=== PATIENT | female | born 1945 | race Caucasian/White ===

== ENCOUNTER 2022-12-19 23:52 | Emergency (ER) | payer MEDICARE, BC, SELFPAY ==
[2022-12-20] VITALS (14 sets, daily range): BP systolic 66–110; BP diastolic 38–75; PULSE 64–74; RESP 16–18; TEMP 36.6; O2SAT 94–98; BMI 23.0
[2022-12-20] MEDS: 0.9 % SODIUM CHLORIDE 1000 ml 1,000 ML IV ×2 (00:20→01:17)
--- NOTE | 2022-12-20 00:57 | ED.GENADULT ---
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 Other COVID case. Tested positive yesterday. Increasingly weak. Describing orthostatic lightheadedness. Got up went to the kitchen at which point was feeling more lightheaded reached for a chair which slipped out from under her and she fell lacerating her left thumb. I note rather low blood pressure on arrival here. She does acknowledge is usually in the 120s. She does apparently take few antihypertensives as well. During this fall there was no loss of consciousness and no other injuries were sustained apparently. She denies heart failure. Related Data Home Medications Medication Instructions Recorded Confirmed amlodipine 5 mg tablet 5 mg PO DAILY 12/20/22 12/20/22 atenolol 25 mg tablet 25 mg PO DAILY 12/20/22 12/20/22 atorvastatin 20 mg tablet 20 mg PO HS 12/20/22 12/20/22 cholecalciferol (vitamin D3) 25 25 mcg PO DAILY 12/20/22 12/20/22 mcg (1,000 unit) capsule duloxetine 20 mg capsule,delayed 20 mg PO BID 12/20/22 12/20/22 release esomeprazole magnesium 40 mg 40 mg PO DAILY 12/20/22 12/20/22 capsule,delayed release famotidine 20 mg tablet 20 mg PO HS 12/20/22 12/20/22 ferrous gluconate 324 mg (38 mg 324 mg PO DAILY 12/20/22 12/20/22 iron) tablet gabapentin 300 mg capsule 300 mg PO HS 12/20/22 12/20/22 mirabegron 50 mg tablet,extended 50 mg PO DAILY 12/20/22 12/20/22 release 24 hr (Myrbetriq) nortriptyline 10 mg capsule 10 mg PO HS 12/20/22 12/20/22 oxycodone-acetaminophen 5 mg-325 1 tab PO TID PRN 12/20/22 12/20/22 mg tablet sumatriptan succinate 50 mg tablet 50 mg PO DIRECTED 12/20/22 12/20/22 vitamin E 268 mg (400 unit) capsule 536 mg PO DAILY 12/20/22 12/20/22 Allergies Allergy/AdvReac Type Severity Reaction Status Date / Time vancomycin Allergy Severe Angioedema Verified 12/20/22 00:13 amoxicillin [From Augmentin] Allergy Mild Rash Verified 12/20/22 00:13 clavulanic acid Allergy Mild Rash Verified 12/20/22 00:13 [From Augmentin] Review of Systems Status of ROS: Reports: 10 or more systems reviewed and unremarkable except as noted in History and below [facility] Medical History Adjustment disorder Dermatochalasia Dry mouth FH: total knee replacement Hip osteoarthritis HTN (hypertension) Hyperlipidemia, unspecified Injury of long thoracic nerve Lumbar facet arthropathy Migraines Neck pain Pain medication agreement Peripheral motor neuropathy Pterygium eye Sensorineural hearing loss Spinal stenosis, lumbar region without neurogenic claudication Urge incontinence Surgical History Cataract extraction status H/O blepharoplasty History of carpal tunnel release Hx of tonsillectomy S/P YAG capsulotomy Social History Smoking Status: Unknown if ever smoked Do you use any of these nicotine containing products: None How often do you have a drink containing alcohol: never AUDIT-C Alcohol total score: 0 Non-prescribed substance use: denies use Exam Narrative: Exam Narrative: Pleasant. NAD. Skin is warm and dry. There is a 1-1/4 inch gapping mid pad laceration of the left thumb. Full dermal with fatty pad expressed. She appears of good energy. Head is atraumatic. Oropharynx is sticky. Cranial nerves 2-12 are intact. There is no nystagmus. She does not demonstrates subjective dizziness to head movement. Does feel lightheaded when goes to sitting. Lungs are clear. Heart with regular rate and rhythm no murmur rub or gallop identified. Abdomen is flat soft nontender. Moving all extremities without difficulty. Well perfused. No peripheral/lower extremity edema. Const: Vital Signs, click to edit/add: Vital Signs - 24 hr 12/20/22 00:08 12/20/22 00:17 12/20/22 00:32 Temperature 97.8 F Pulse Rate 65 66 Pulse Rate [Right Pulse Oximeter] 70 Pulse Rate [orthos tatic lying Pulse Oximeter] Pulse Rate [orthos tatic sitting Left ] Pulse Rate [orthos tatic standing Lef t] Respiratory Rate 18 Blood Pressure 83/50 L 87/47 L Blood Pressure [Le ft Upper Arm] 89/50 L Blood Pressure [or thostatic lying Le ft Arm] Blood Pressure [or thostatic sitting Left Arm] Blood Pressure [or thostatic standing Left Arm] Pulse Oximetry 98 94 96 Oxygen Delivery Me thod Room Air 12/20/22 00:47 12/20/22 00:47 12/20/22 01:07 Temperature Pulse Rate 66 Pulse Rate [Right Pulse Oximeter] Pulse Rate [orthos tatic lying Pulse Oximeter] 65 Pulse Rate [orthos tatic sitting Left ] 66 Pulse Rate [orthos tatic standing Lef t] 74 Respiratory Rate Blood Pressure 93/55 L Blood Pressure [Le ft Upper Arm] Blood Pressure [or thostatic lying Le ft Arm] 94/45 L Blood Pressure [or thostatic sitting Left Arm] 88/54 L Blood Pressure [or thostatic standing Left Arm] 66/46 L Pulse Oximetry 97 97 Oxygen Delivery Me thod 12/20/22 01:17 12/20/22 01:32 12/20/22 01:47 Temperature Pulse Rate 68 66 64 Pulse Rate [Right Pulse Oximeter] Pulse Rate [orthos tatic lying Pulse Oximeter] Pulse Rate [orthos tatic sitting Left ] Pulse Rate [orthos tatic standing Lef t] Respiratory Rate Blood Pressure 96/38 L 99/51 L 96/55 L Blood Pressure [Le ft Upper Arm] Blood Pressure [or thostatic lying Le ft Arm] Blood Pressure [or thostatic sitting Left Arm] Blood Pressure [or thostatic standing Left Arm] Pulse Oximetry 95 96 94 Oxygen Delivery Me thod 12/20/22 02:02 12/20/22 02:17 12/20/22 02:27 Temperature Pulse Rate 64 64 68 Pulse Rate [Right Pulse Oximeter] Pulse Rate [orthos tatic lying Pulse Oximeter] Pulse Rate [orthos tatic sitting Left ] Pulse Rate [orthos tatic standing Lef t] Respiratory Rate 16 16 16 Blood Pressure 93/75 97/55 L 104/39 L Blood Pressure [Le ft Upper Arm] Blood Pressure [or thostatic lying Le ft Arm] Blood Pressure [or thostatic sitting Left Arm] Blood Pressure [or thostatic standing Left Arm] Pulse Oximetry 94 94 Oxygen Delivery Me thod 12/20/22 02:32 12/20/22 02:47 12/20/22 03:11 Temperature 97.8 F Pulse Rate Pulse Rate [Right Pulse Oximeter] 64 Pulse Rate [orthos tatic lying Pulse Oximeter] Pulse Rate [orthos tatic sitting Left ] Pulse Rate [orthos tatic standing Lef t] Respiratory Rate 16 Blood Pressure 110/63 106/61 Blood Pressure [Le ft Upper Arm] 108/64 Blood Pressure [or thostatic lying Le ft Arm] Blood Pressure [or thostatic sitting Left Arm] Blood Pressure [or thostatic standing Left Arm] Pulse Oximetry Oxygen Delivery Me thod Course Vital Signs Vital signs: Initial Vital Signs Temperature 97.8 F 12/20/22 00:08 Temperature Source Temporal Artery Scan 12/20/22 00:08 Pulse Rate 70 12/20/22 00:08 Respiratory Rate 18 12/20/22 00:08 Blood Pressure 89/50 L 12/20/22 00:08 Blood Pressure Mean 63 12/20/22 00:08 Blood Pressure Position Sitting 12/20/22 00:08 Pulse Oximetry 98 12/20/22 00:08 Oxygen Delivery Method 12/20/22 00:08 Vital Signs Temperature 97.8 F 12/20/22 00:08 Pulse Rate 70 12/20/22 00:08 Respiratory Rate 18 12/20/22 00:08 Blood Pressure 89/50 L 12/20/22 00:08 Pulse Oximetry 98 12/20/22 00:08 Oxygen Delivery Method 12/20/22 00:08 Temperature 97.8 F 12/20/22 03:11 Pulse Rate 64 12/20/22 03:11 Respiratory Rate 16 12/20/22 03:11 Blood Pressure 108/64 12/20/22 03:11 Pulse Oximetry 94 12/20/22 02:17 Oxygen Delivery Method 12/20/22 00:08 Medical Decision Making MDM Narrative Medical decision making narrative: Evaluate for further cardiovascular cause of near syncope. Rather low blood pressures are apparently atypical. Does not seem septic but would look further in this regard. Will initiate IV fluids. I suspect is rather dehydrated. Orthostatics are indeed positive. Be presumably pulse can not compensate due to beta blockade. She does report feeling increasingly lightheaded during this testing. I did return to anesthetize left thumb with a digital block. Cleansed with Shur-Clens. She had already scrubbed with soap and water. Sutured with 9-10 interrupted 6-0 Ethilon sutures. Excellent wound approximation was achieved. Still ultimately was oozing just a little bit of blood. Antibiotic ointment Band-Aid and light pressure dressing was placed. Markedly improved over time in the emergency department. Received 2 L of normal saline. Is ambulating with much less symptoms. Unfortunately GFR would preclude Paxlovid treatment. Did otherwise evaluate medication list anticipating potential treatment. With orthostatics symptoms I would hold atenolol at this point. Does not have a history of arrhythmia/dysrhythmia per her report. Medical Records Medical records reviewed: Yes I reviewed the patient's medical records Lab Data Lab results reviewed: Yes I reviewed the patient's lab results Labs: Lab Results 12/20/22 12/20/22 12/20/22 Range/Units 00:05 00:05 00:05 WBC 8.95 (4.50-11.00) K/uL RBC 4.44 (4.00-5.20) m/uL Hgb 13.3 (12.0-16.0) gm/dL Hct 40.9 (33.0-51.0) % MCV 92 (80-100) fL MCH 30 (26-34) pg MCHC 33 (32-36) gm/dL RDW Coeff of [place] 13.1 (11.5-15.5) % Plt Count 285 (140-440) K/uL Neut % (Auto) 83.8 H (42.0-72.0) % Lymph % (Auto) 5.3 L (20-44) % [place] % (Auto) 9.8 (0.0-11.0) % Eos % (Auto) 0.1 (0.0-7.0) % Baso % (Auto) 0.8 (0.0-3.0) % Neut # (Auto) 7.50 H (1.7-7.0) K/uL Lymph # (Auto) 0.50 L (0.90-2.90) K/uL [place] # (Auto) 0.90 (0.00-0.90) K/UL Eos # (Auto) 0.01 (0.00-0.50) K/uL Baso # (Auto) 0.07 (0.00-0.30) K/uL D-Dimer Quant (PE/DVT) 0.36 (0.00-0.50) ug/ml Sodium (135-149) mmol/L Potassium (3.6-5.1) mmol/L Chloride (96-114) mmol/L Carbon Dioxide (20-32) mmol/L BUN (7-30) mg/dL Creatinine (0.5-1.5) mg/dL Estimated Creat Clear Estimated GFR ml/min Glucose (60-115) mg/dL Lactate 1.8 (0.5-1.9) mmol/L Calcium (8.4-10.6) mg/dL Magnesium (1.5-2.6) mg/dL Troponin I (0.01-0.04) ng/mL C-Reactive Protein (0.5-1.0) mg/dL NT-Pro-B Natriuret Pep pg/mL Urine Color (Yellow) Urine Appearance (Clear) Urine pH (5.0-8.5) Ur Specific [place] (1.000-1.030) Urine Protein (Negative) Urine Glucose (UA) (Negative) Urine Ketones (Negative) Urine Blood (Negative) Urine Nitrite (Negative) Urine Bilirubin (Negative) Urine Urobilinogen (0.2-1.0) Ur Leukocyte Esterase (Negative) Urine RBC (0-2) Urine WBC (0-5) Ur Squamous Epith Cells (None-Few) Urine Bacteria (None) Urine Mucus (None) Ethyl Alcohol (0.01-0.03) % SARS-CoV-2 (PCR) (Negative) Influenza Type A (PCR) (Negative) Influenza Type B (PCR) (Negative) 12/20/22 12/20/22 12/20/22 Range/Units 00:05 00:05 00:47 WBC (4.50-11.00) K/uL RBC (4.00-5.20) m/uL Hgb (12.0-16.0) gm/dL Hct (33.0-51.0) % MCV (80-100) fL MCH (26-34) pg MCHC (32-36) gm/dL RDW Coeff of [place] (11.5-15.5) % Plt Count (140-440) K/uL Neut % (Auto) (42.0-72.0) % Lymph % (Auto) (20-44) % [place] % (Auto) (0.0-11.0) % Eos % (Auto) (0.0-7.0) % Baso % (Auto) (0.0-3.0) % Neut # (Auto) (1.7-7.0) K/uL Lymph # (Auto) (0.90-2.90) K/uL [place] # (Auto) (0.00-0.90) K/UL Eos # (Auto) (0.00-0.50) K/uL Baso # (Auto) (0.00-0.30) K/uL D-Dimer Quant (PE/DVT) (0.00-0.50) ug/ml Sodium 137 (135-149) mmol/L Potassium 4.0 (3.6-5.1) mmol/L Chloride 103 (96-114) mmol/L Carbon Dioxide 29 (20-32) mmol/L BUN 18 (7-30) mg/dL Creatinine 1.8 H (0.5-1.5) mg/dL Estimated Creat Clear 24.30 Estimated GFR 29 ml/min Glucose 130 H (60-115) mg/dL Lactate (0.5-1.9) mmol/L Calcium 9.0 (8.4-10.6) mg/dL Magnesium 2.0 (1.5-2.6) mg/dL Troponin I 0.02 (0.01-0.04) ng/mL C-Reactive Protein 2.8 H (0.5-1.0) mg/dL NT-Pro-B Natriuret Pep 2100 pg/mL Urine Color (Yellow) Urine Appearance (Clear) Urine pH (5.0-8.5) Ur Specific [place] (1.000-1.030) Urine Protein (Negative) Urine Glucose (UA) (Negative) Urine Ketones (Negative) Urine Blood (Negative) Urine Nitrite (Negative) Urine Bilirubin (Negative) Urine Urobilinogen (0.2-1.0) Ur Leukocyte Esterase (Negative) Urine RBC (0-2) Urine WBC (0-5) Ur Squamous Epith Cells (None-Few) Urine Bacteria (None) Urine Mucus (None) Ethyl Alcohol < 0.01 L (0.01-0.03) % SARS-CoV-2 (PCR) POSITIVE SARS-CoV-2 A (Negative) Influenza Type A (PCR) Negative PCR FLU A (Negative) Influenza Type B (PCR) Negative PCR FLU B (Negative) 12/20/22 Range/Units 02:25 WBC (4.50-11.00) K/uL RBC (4.00-5.20) m/uL Hgb (12.0-16.0) gm/dL Hct (33.0-51.0) % MCV (80-100) fL MCH (26-34) pg MCHC (32-36) gm/dL RDW Coeff of [place] (11.5-15.5) % Plt Count (140-440) K/uL Neut % (Auto) (42.0-72.0) % Lymph % (Auto) (20-44) % [place] % (Auto) (0.0-11.0) % Eos % (Auto) (0.0-7.0) % Baso % (Auto) (0.0-3.0) % Neut # (Auto) (1.7-7.0) K/uL Lymph # (Auto) (0.90-2.90) K/uL [place] # (Auto) (0.00-0.90) K/UL Eos # (Auto) (0.00-0.50) K/uL Baso # (Auto) (0.00-0.30) K/uL D-Dimer Quant (PE/DVT) (0.00-0.50) ug/ml Sodium (135-149) mmol/L Potassium (3.6-5.1) mmol/L Chloride (96-114) mmol/L Carbon Dioxide (20-32) mmol/L BUN (7-30) mg/dL Creatinine (0.5-1.5) mg/dL Estimated Creat Clear Estimated GFR ml/min Glucose (60-115) mg/dL Lactate (0.5-1.9) mmol/L Calcium (8.4-10.6) mg/dL Magnesium (1.5-2.6) mg/dL Troponin I (0.01-0.04) ng/mL C-Reactive Protein (0.5-1.0) mg/dL NT-Pro-B Natriuret Pep pg/mL Urine Color Yellow (Yellow) Urine Appearance Clear (Clear) Urine pH 5.5 (5.0-8.5) Ur Specific [place] 1.025 (1.000-1.030) Urine Protein 1+ A (Negative) Urine Glucose (UA) Negative (Negative) Urine Ketones Negative (Negative) Urine Blood Trace-intact A (Negative) Urine Nitrite Negative (Negative) Urine Bilirubin Negative (Negative) Urine Urobilinogen 0.2 (0.2-1.0) Ur Leukocyte Esterase Negative (Negative) Urine RBC 0-2 (0-2) Urine WBC 2-5 (0-5) Ur Squamous Epith Cells Moderate A (None-Few) Urine Bacteria Few A (None) Urine Mucus Few A (None) Ethyl Alcohol (0.01-0.03) % SARS-CoV-2 (PCR) (Negative) Influenza Type A (PCR) (Negative) Influenza Type B (PCR) (Negative) ECG Data Attestation: I personally reviewed and interpreted this ECG as follows: (Normal sinus 65) Discharge Plan Discharge Clinical Impression: COVID-19, Orthostatic hypotension, Dehydration, Renal insufficiency, Laceration of thumb Patient Disposition: Home w/ Parent or Adult Condition: Improved Additional Instructions: Take care with transitions. Focus on hydration. I would hold your atenolol over this next week if possible. Follow-up in a few weeks to recheck your labs specifically related to your kidney function. sutures out in 10-12 days. antibiotic ointment for 5 days and then to a dry dressing. ok to get wet but try not to soak while sutures are in. Watch for spreading redness after 2 days accompanied by heat, swelling, marked increase in pain, purulent drainage. Prescriptions: No Action amlodipine 5 mg tablet 5 mg PO DAILY Label Comments: TAKE ONE TABLET BY MOUTH ONE TIME DAILY atenolol 25 mg tablet 25 mg PO DAILY Label Comments: TAKE ONE TABLET BY MOUTH ONE TIME DAILY atorvastatin 20 mg tablet 20 mg PO HS Label Comments: TAKE ONE TABLET BY MOUTH ONE TIME DAILY AT BEDTIME duloxetine 20 mg capsule,delayed release(DR/EC) 20 mg PO BID Label Comments: TAKE ONE CAPSULE BY MOUTH TWICE DAILY esomeprazole magnesium 40 mg capsule,delayed release(DR/EC) 40 mg PO DAILY Label Comments: TAKE ONE CAPSULE BY MOUTH ONE TIME DAILY BEFORE A MEAL. famotidine 20 mg tablet 20 mg PO HS Label Comments: Take 1 Tablet (20 mg) by mouth at bedtime ferrous gluconate 324 mg (38 mg iron) tablet 324 mg PO DAILY Label Comments: TAKE ONE TABLET BY MOUTH ONE TIME DAILY WITH A MEAL. gabapentin 300 mg capsule 300 mg PO HS Label Comments: TAKE TWO CAPSULES BY MOUTH DAILY AT BEDTIME. Myrbetriq 50 mg tablet extended release 24 hr 50 mg PO DAILY Label Comments: TAKE ONE TABLET BY MOUTH ONE TIME DAILY nortriptyline 10 mg capsule 10 mg PO HS Label Comments: TAKE ONE CAPSULE BY MOUTH ONE TIME DAILY AT BEDTIME oxycodone-acetaminophen 5-325 mg tablet 1 tab PO TID PRN Label Comments: Take 1 Tablet by mouth 3 times daily if needed for Pain. do not exceed 4000mg of acetaminophen in 24 hours. sumatriptan succinate 50 mg tablet 50 mg PO DIRECTED Label Comments: take 1 tablet by mouth at onset of headache. may repeat in 2 hours if needed. max dose: 200mg per 24 hours. cholecalciferol (vitamin D3) 25 mcg (1,000 unit) capsule 25 mcg PO DAILY vitamin E 268 mg (400 unit) capsule 536 mg PO DAILY Label Comments: take 2 capsules by mouth daily Follow Up/Referrals: Rosibel Walsh MD [Primary Care Provider] - Stand Alone Forms: [employer] Info Instructions
[2022-12-20 01:01] LABS: Basophils Absolute Auto 0.07 K/uL (0.00-0.30); Basophils Percent Auto 0.8 % (0.0-3.0); Eosinophils Absolute Auto 0.01 K/uL (0.00-0.50); Eosinophils Percent Auto 0.1 % (0.0-7.0); Hematocrit 40.9 % (33.0-51.0); Hemoglobin* 13.3 gm/dL (12.0-16.0); Immature Granulocytes Abs Auto 0.02 K/uL (0.00-0.30); Immature Granulocytes Pct Auto 0.2 %; Lymphocytes Percent Auto 5.3 % (20-44); Mean Corpuscular HGB Conc 33 gm/dL (32-36); Mean Corpuscular Hemoglobin 30 pg (26-34); Mean Corpuscular Volume 92 fL (80-100); Monocytes Percent Auto 9.8 % (0.0-11.0); Neutrophils Percent Auto 83.8 % (42.0-72.0); Platelet Count* 285 K/uL (140-440); RDW Coefficient of Variation % 13.1 % (11.5-15.5); Red Blood Count 4.44 m/uL (4.00-5.20); White Blood Count* 8.95 K/uL (4.50-11.00)
[2022-12-20 01:02] LABS: Lactate* 1.8 mmol/L (0.5-1.9); Slide Review Reflex No
[2022-12-20 01:03] LABS: Chloride* 103 mmol/L (96-114); Sodium* 137 mmol/L (135-149)
[2022-12-20 01:06] LABS: Creatinine* 1.8 mg/dL (0.5-1.5); Estimated Glomerular Filt Rate 29 ml/min
[2022-12-20 01:07] LABS: Blood Urea Nitrogen* 18 mg/dL (7-30); Carbon Dioxide* 29 mmol/L (20-32); D Dimer Quantitative* 0.36 ug/ml (0.00-0.50); Glucose* 130 mg/dL (60-115)
[2022-12-20 01:08] LABS: Ethanol* < 0.01 % (0.01-0.03)
[2022-12-20 01:10] LABS: C Reactive Protein* 2.8 mg/dL (0.5-1.0)
--- NOTE | 2022-12-20 01:11 | ED.NURSE ---
MD Emery updated on orthostatic blood pressure
[2022-12-20 01:16] LABS: NT Pro B Type NatriureticPept* 2100 pg/mL
[2022-12-20] MEDS: lidocaine HCL 2 % MULTIDOSE 20 ML VIAL INJECTION (01:16)
[2022-12-20 01:18] LABS: Troponin I* 0.02 ng/mL (0.01-0.04)
[2022-12-20 01:59] LABS: PCR FLU A Negative PCR FLU A (Negative); PCR FLU B Negative PCR FLU B (Negative)
[2022-12-20 02:01] LABS: SARS PCR* POSITIVE SARS-CoV-2 (Negative)
[2022-12-20 02:29] LABS: Appearance Urine Clear (Clear); Bilirubin Urine Negative (Negative); Blood Urine Trace-intact (Negative); Color Urine Yellow (Yellow); Glucose Urine Negative (Negative); Ketones Urine Negative (Negative); Leukocyte Esterase Urine Negative (Negative); Nitrite Urine Negative (Negative); Protein Urine 1+ (Negative); Specific Gravity Urine 1.025 (1.000-1.030); Urobilinogen Urine 0.2 (0.2-1.0); pH Urine 5.5 (5.0-8.5)
[2022-12-20 02:36] LABS: Bacteria Urine Few; RBC Urine 0-2 (0-2); Squamous Epithelial Cell Urine Moderate (None-Few)
[2022-12-20 02:37] LABS: Mucus Urine Few
[2022-12-26 14:17] LABS: Troponin, Point-of-Care* 0.03 ng/ml (0.01-0.04)
== END 2022-12-20 03:12 | disposition home or self-care (01) ==
PROVIDERS: Emergency Provider Family Medicine; PCP Family Medicine
DX: U07.1 COVID-19 (principal); I95.1 Orthostatic hypotension; N28.9 Disorder of kidney and ureter, unspecified; S61.012A Laceration without foreign body of left thumb without damage to nail, initial encounter; W19.XXXA Unspecified fall, initial encounter; W26.9XXA Contact with unspecified sharp object(s), initial encounter
CPT/HCPCS: 12001; 36415; 80048; 81001; 82077; 83605; 83735; 83880; 84484; 85025; 85379; 86140; 87086; 87631; 93005; 94761; 99284; J7030

== ENCOUNTER 2024-01-08 19:39 | Emergency (ER) | payer MEDICARE, BC, SELFPAY ==
[2024-01-08 19:45] VITALS: BP 157/76; PULSE 84; RESP 20; TEMP 36.7; O2SAT 99; BMI 21.6
--- NOTE | 2024-01-08 20:51 | ED_ITS ---
HPI - Animal Bite General Chief Complaint: Animal Bite Stated Complaint: Cat bite R arm Time Seen by Provider: 01/08/24 19:48 History of Present Illness HPI narrative: This 78-year-old female comes in because of many wounds on her arms from cat bites that occurred about 8 hours prior to arrival. She was bitten by her own cat on both arms and hands as she was attempting to protect another CT she has that was being attacked by this particular CT that bit her. She has numerous wounds on both arms and is starting to develop some swelling and erythema. None of the wounds require repair. She has not had any fevers. She does have allergy to amoxicillin with 3 different occasions where she developed a rash. Related Data Home Medications Medication Instructions Recorded Confirmed atenolol 25 mg tablet 25 mg PO DAILY 12/20/22 10/04/23 atorvastatin 20 mg tablet 20 mg PO HS 12/20/22 10/04/23 cholecalciferol (vitamin D3) 25 25 mcg PO DAILY 12/20/22 10/04/23 mcg (1,000 unit) capsule duloxetine 20 mg capsule,delayed 20 mg PO BID 12/20/22 10/04/23 release esomeprazole magnesium 40 mg 40 mg PO DAILY 12/20/22 10/04/23 capsule,delayed release famotidine 20 mg tablet 20 mg PO HS 12/20/22 10/04/23 ferrous gluconate 324 mg (38 mg 324 mg PO DAILY 12/20/22 10/04/23 iron) tablet gabapentin 300 mg capsule 300 - 600 mg PO HS 12/20/22 10/04/23 nortriptyline 10 mg capsule 10 mg PO HS 12/20/22 10/04/23 oxycodone-acetaminophen 5 mg-325 1 tab PO TID PRN 12/20/22 10/04/23 mg tablet sumatriptan succinate 50 mg tablet 50 mg PO DIRECTED 12/20/22 10/04/23 vitamin E 268 mg (400 unit) capsule 536 mg PO DAILY 12/20/22 10/04/23 albuterol sulfate 90 mcg/actuation 1 - 2 puff inhalation Q4H PRN 10/04/23 10/04/23 aerosol inhaler wheezing guaifenesin 600 mg tablet, 600 mg PO BID PRN 10/04/23 10/04/23 extended release 12 hr (Mucinex) trospium 20 mg tablet 20 mg PO BID 10/04/23 10/04/23 Previous Rx's Medication Instructions Recorded amoxicillin 875 mg-potassium 1 tab PO BIDWM #24 tabs 10/06/23 clavulanate 125 mg tablet levofloxacin 500 mg tablet 500 mg PO Q24H #10 tabs 10/09/23 metronidazole 500 mg tablet 500 mg PO BID #20 tabs 10/09/23 Allergies Allergy/AdvReac Type Severity Reaction Status Date / Time vancomycin Allergy Severe Angioedema Verified 01/08/24 19:48 amoxicillin [From Augmentin] Allergy Mild Rash Verified 01/08/24 19:48 clavulanic acid Allergy Mild Rash Verified 01/08/24 19:48 [From Augmentin] Review of Systems Status of ROS: Reports: 10 or more systems reviewed and unremarkable except as noted in History and below Narrative: Constitutional: No fevers, no weight gain or loss. Eyes: No discharge. No vision changes. HENT: No congestion, no sore throat, no ear pain. Cardiovascular: No chest pain, no palpitations. Respiratory: No shortness of breath, no wheezes, no cough. Gastrointestinal: No abdominal pain, no vomiting, no diarrhea. Genitourinary: No dysuria, no hematuria. Musculoskeletal: Normal range of motion. Skin: Cat bite injuries to both arms and hands with surrounding erythema and some bruising. Neurological: No dizziness, weakness, sensory change, speech change. Endo/Heme/Allergies: No bruising or bleeding. No polydipsia. Pysch: no suicidality, no anxiety, no insomnia. All other systems reviewed and are negative. 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 - Other specified polyneuropathies (ICD-10) Sensorineural hearing loss ?H90.5 - Unspecified sensorineural hearing loss (ICD-10) Migraines ?G43.909 - Migraine, unspecified, not intractable, without status migrainosus (ICD-10) Dry mouth ?R68.2 - Dry mouth, unspecified (ICD-10) Urge incontinence ?N39.41 - Urge incontinence (ICD-10) Dermatochalasia ?H02.839 - Dermatochalasis of unspecified eye, unspecified eyelid (ICD-10) Pterygium eye ?H11.009 - Unspecified pterygium of unspecified eye (ICD-10) Adjustment disorder ?F43.20 - Adjustment disorder, unspecified (ICD-10) HTN (hypertension) ?I10 - Essential (primary) hypertension (ICD-10) Pain medication agreement ?Z02.89 - Encounter for other administrative examinations (ICD-10) Lumbar facet arthropathy ?M47.816 - Spondylosis without myelopathy or radiculopathy, lumbar region (ICD-10) Hip osteoarthritis ?M16.9 - Osteoarthritis of hip, unspecified (ICD-10) Injury of long thoracic nerve ?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.8XXA - Injury of other specified nerves of thorax, initial encounter (ICD-10) Hyperlipidemia, unspecified ?E78.5 - Hyperlipidemia, unspecified (ICD-10) Neck pain ?M54.2 - Cervicalgia (ICD-10) Spinal stenosis, lumbar region without neurogenic claudication ?M48.061 - Spinal stenosis, lumbar region without neurogenic claudication (ICD-10) Surgical History S/P YAG capsulotomy ?Z98.890 - Other specified postprocedural states (ICD-10) Hx of tonsillectomy ?Z90.89 - Acquired absence of other organs (ICD-10) Cataract extraction status ?Z98.49 - Cataract extraction status, unspecified eye (ICD-10) History of carpal tunnel release ?Z98.890 - Other specified postprocedural states (ICD-10) H/O blepharoplasty ?Z98.890 - Other specified postprocedural states (ICD-10) Family History (Updated 10/04/23 @ 14:10 by Faisal August MD) Other Gout Social History (Updated 10/04/23 @ 14:10 by Faisal August MD) Narrative: She lives in a home in [place] with her 2 daughters and her son in law. She reports this is going well for her. Her daughter Esther is healthcare power of [employer] machine operator. Code status is full. She does not smoke. She does not drink alcohol. What is your current living situation?: unable to answer Problems where you live: unable to answer Problems where you live details: NA In the past 12 months, utilities in danger of being shut off: unable to answer In past 12 months, lack of transportation kept you from medical appts, meetings, work, or getting things needed for daily living: unable to answer In the past 12 mos, have been you worried that your food would run out before you had money to buy more?: unable to answer In the past 12 mos, the food you bought just didn't last and you didn't have money to buy more?: unable to answer Highest level of school completed/degree received: 12th grade, no diploma Smoking Status: Never smoker Do you use any of these nicotine containing products: None Second hand tobacco smoke exposure: No How often do you have a drink containing alcohol: never AUDIT-C Alcohol total score: 0 Non-prescribed substance use: denies use How often does anyone, including family, friends and others, physically hurt you : unable to answer How often does anyone, including family, friends and others, insult or talk down to you: unable to answer How often does anyone, including family, friends and others, threaten you with harm: unable to answer How often does anyone, including family, friends and others, scream or curse at you: unable to answer service: No Exam Narrative: Exam Narrative: Constitutional: Well-developed, well-nourished, no acute distress. HEENT: Normocephalic, atraumatic. Neck: Normal range of motion. Nontender. Supple. Heart: Intact distal pulses. Lungs: No chest discomfort. No wheezes, rhonchi, or rales. Abdomen: Nontender. Back: Normal range of motion. Extremities: Normal range of motion. Both forearms and hands of the upper extremities have numerous cat bites with surrounding bruising and erythema and swelling in various places. Skin: Intact. No rash. Warm. No erythema or pallor. Neurologic: No altered sensation. No weakness. Alert and oriented. Psychiatric: No suicidality. No anxiety or depression. No insomnia. Nursing notes and vitals signs are reviewed. Const: Vital Signs, click to edit/add: Vital Signs - 24 hr 01/08/24 19:45 Temperature 98.0 F Pulse Rate [Right Pulse Oximeter] 84 Respiratory Rate 20 Blood Pressure [Ri ght Upper Arm] 157/76 H Pulse Oximetry 99 Oxygen Delivery Me thod Room Air Course Vital Signs Vital signs: Initial Vital Signs Temperature 98.0 F 01/08/24 19:45 Temperature Source Temporal Artery Scan 01/08/24 19:45 Pulse Rate 84 01/08/24 19:45 Respiratory Rate 20 01/08/24 19:45 Blood Pressure 157/76 H 01/08/24 19:45 Blood Pressure Mean 103 01/08/24 19:45 Blood Pressure Position Sitting 01/08/24 19:45 Pulse Oximetry 99 01/08/24 19:45 Oxygen Delivery Method Room Air 01/08/24 19:45 Vital Signs Temperature 98.0 F 01/08/24 19:45 Pulse Rate 84 01/08/24 19:45 Respiratory Rate 20 01/08/24 19:45 Blood Pressure 157/76 H 01/08/24 19:45 Pulse Oximetry 99 01/08/24 19:45 Oxygen Delivery Method Room Air 01/08/24 19:45 Temperature 98.0 F 01/08/24 19:45 Pulse Rate 84 01/08/24 19:45 Respiratory Rate 20 01/08/24 19:45 Blood Pressure 157/76 H 01/08/24 19:45 Pulse Oximetry 99 01/08/24 19:45 Oxygen Delivery Method Room Air 01/08/24 19:45 MDM - Animal Bite MDM Narrative Medical decision making narrative: This patient was bit by her own cat about 8 hours prior to arrival. The cat is healthy and is updated on all vaccinations. The patient has numerous wounds that are starting to show signs of infection. She has an allergy that is rather well documented to amoxicillin and Augmentin. She had some symptoms when taking doxycycline previously so I decided to use Bactrim as an alternative treatment. She does not know of any reaction to this medicine. A prescription for Bactrim is provided from the [facility]. I did describe signs and symptoms that would indicate a need for return and re-evaluation. Discharge Plan Discharge Additional Instructions: Take medication as prescribed. Use [id number] medicines also as needed and directed. Follow up with MD return if worsening. Prescriptions: No Action albuterol sulfate 90 mcg/actuation HFA aerosol inhaler 1 - 2 puff INHALATION Q4H PRN (Reason: wheezing) guaifenesin [Mucinex] 600 mg tablet extended release 12hr 600 mg PO BID PRN trospium 20 mg tablet 20 mg PO BID amoxicillin-pot clavulanate 875-125 mg Tablet 1 tab PO BIDWM Qty: 24 0RF Rx Instructions: allergy will flag; she has taken this without issue this weekend as an inpatient levofloxacin 500 mg tablet 500 mg PO Q24H Qty: 10 0RF metronidazole 500 mg tablet 500 mg PO BID Qty: 20 0RF atenolol 25 mg tablet 25 mg PO DAILY Patient Comments: TAKE ONE TABLET BY MOUTH ONE TIME DAILY atorvastatin 20 mg tablet 20 mg PO HS Patient Comments: TAKE ONE TABLET BY MOUTH ONE TIME DAILY AT BEDTIME duloxetine 20 mg capsule,delayed release(DR/EC) 20 mg PO BID Patient Comments: TAKE ONE CAPSULE BY MOUTH TWICE DAILY esomeprazole magnesium 40 mg capsule,delayed release(DR/EC) 40 mg PO DAILY Patient Comments: TAKE ONE CAPSULE BY MOUTH ONE TIME DAILY BEFORE A MEAL. famotidine 20 mg tablet 20 mg PO HS Patient Comments: Take 1 Tablet (20 mg) by mouth at bedtime ferrous gluconate 324 mg (38 mg iron) tablet 324 mg PO DAILY Patient Comments: TAKE ONE TABLET BY MOUTH ONE TIME DAILY WITH A MEAL. gabapentin 300 mg capsule 300 - 600 mg PO HS Patient Comments: nortriptyline 10 mg capsule 10 mg PO HS Patient Comments: TAKE ONE CAPSULE BY MOUTH ONE TIME DAILY AT BEDTIME oxycodone-acetaminophen 5-325 mg tablet 1 tab PO TID PRN Patient Comments: Take 1 Tablet by mouth 3 times daily if needed for Pain. do not exceed 4000mg of acetaminophen in 24 hours. sumatriptan succinate 50 mg tablet 50 mg PO DIRECTED Patient Comments: take 1 tablet by mouth at onset of headache. may repeat in 2 hours if needed. max dose: 200mg per 24 hours. cholecalciferol (vitamin D3) 25 mcg (1,000 unit) capsule 25 mcg PO DAILY vitamin E 268 mg (400 unit) capsule 536 mg PO DAILY Patient Comments: take 2 capsules by mouth daily Follow Up/Referrals: Rosibel Walsh MD [Primary Care Provider] - Stand Alone Forms: [facility] Info Instructions
== END 2024-01-08 21:07 | disposition home or self-care (01) ==
LOC: ED 20:55
PROVIDERS: Emergency Provider Emergency Medicine Emergency Medical Services; PCP Family Medicine
DX: S41.152A Open bite of left upper arm, initial encounter (principal); S41.151A Open bite of right upper arm, initial encounter; W55.01XA Bitten by cat, initial encounter
CPT/HCPCS: 99283; 99284

== ENCOUNTER 2024-01-28 08:05 | Outpatient (CLI) | payer MEDICARE, BC, SELFPAY | END 2024-01-28 08:06 | disposition home or self-care (01) | PROVIDERS: PCP Family Medicine; Visit Provider Family Medicine | DX: M54.16 Radiculopathy, lumbar region (principal); M51.36 Other intervertebral disc degeneration, lumbar region | CPT/HCPCS: 62323; J0702; Q9966 ==

== ENCOUNTER 2024-02-27 07:30 | Outpatient (RCR) | payer MEDICARE, BC, SELFPAY | END 2024-06-26 23:59 | disposition home or self-care (01) | PROVIDERS: PCP Family Medicine; Visit Provider Family Medicine | DX: M48.062 Spinal stenosis, lumbar region with neurogenic claudication (principal); R26.81 Unsteadiness on feet; Z51.89 Encounter for other specified aftercare | CPT/HCPCS: 97110; 97140; 97162 ==

== ENCOUNTER 2024-05-16 16:30 | Outpatient (CLI) | payer MEDICARE, BC, SELFPAY ==
--- OUTSIDE RECORDS SUMMARY | 2024-05-21 22:50 | XMS_ITS | Continuity of Care Document ---
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 Role Phone Missy Schrader CRNA Unavailable Unavailable Allergies, Adverse Reactions, Alerts Substance Reaction Status Criticality AMOXICILLIN TRIHYDRATE Rash Active No In formation POTASSIUM CLAVULANATE Rash Active No Inf ormation vancomycin Angioedema Active No Information Medications Medication Instructions Dosage Effective Dates (start - stop) Status Comments Proair Digihaler 90 mcg/actuation aerosol powder breath act, sensor inhale 2 puff by inhalation route every 4 - 6 hours as needed 180 MCG - Active atenolol 25 mg tablet take 1 tablet by oral route every day 25 MG - Active atorvastatin 10 mg tablet take 1 tablet by oral route every day 10 MG - Active benzonatate 100 mg capsule take 1 capsule by oral route 3 times every day as needed for cough 100 MG - Active Drizalma Sprinkle 20 mg capsule,delayed release take 1 capsule by oral route 2 times every day 20 MG - Active esomeprazole magnesium 40 mg capsule,delayed release take 1 capsule by oral route 2 times every day 40 MG - Active famotidine 20 mg tablet take 1 tablet by oral route 2 times every day 20 MG - Active ferrous gluconate 324 mg (38 mg iron) tablet - Active fluticasone 250 mcg-salmeterol 50 mcg/dose blistr powdr for inhalation inhale 1 puff by inhalation route 2 times every day approximately 12 hours apart at the same times each day 1.00 puff - Active gabapentin 300 mg capsule take 1 capsule by oral route 3 times every day 300 MG - Active guaifenesin ER 600 mg tablet, extended release 12 hr take 1 tablet by oral route every 12 hours as needed 600 MG - Active meclizine 25 mg tablet take 1 tablet by oral route 3 times every day as needed 25 MG - Active Myrbetriq 50 mg tablet,extended release take 1 tablet by oral route every day swallowing whole with water. Do not crush, chew and/or divide. 50 MG - Active nortriptyline 10 mg capsule take 1 capsule by oral route every day at bedtime 10 MG - Active ondansetron [address] 1 tablet by translingual route every day on top of the tongue where they will dissolve, then swallow 4 MG - Active nitroglycerin 0.[address] 1 tablet by sublingual route at 1st sign of attack; may repeat every 5 minutes up to 3 tabs; if norelief seek medical help 0.4 MG - Active oxycodone-acetaminoph en 5 mg-325 mg tablet take 1 tablet by oral route every 6 hours as needed 1.00 tablet - Active sumatriptan 50 mg tablet take 1 tablet by oral route after onset of migraine; may repeat after 2 hours if headache returns,not to exceed 200mg in 24hrs 50 MG - Active trospium 20 mg tablet take 1 tablet by oral route 2 times every day on an empty stomach 20 MG - Active Vitamin D3 25 mcg (1,000 unit) capsule - Active vitamin E 268 mg (400 unit) capsule - Active Procedures Procedure Date Ugi Endo; W/bx 1/mx Level Iv-surg Path Gross/micro 24 Advance Directives Directive Yes / No Effective Date File Name No Information Encounters Encounter Description Practice Location Reason(s) For Visit Diagnoses Date Provider Providers Copied on Encounter [facility], [address] [address], [place], [id number], [place] tel:[phone] [facility] No Information 4 Raciel Louis. [address], [facility] [place], [id number] , [place]. [phone] Referring Provider: Vito Watt MD, [address], [place], [address]. [phone] [facility], [address] [address], [place], [id number], [place] tel:[phone] [facility] GI Symptoms or Concerns (chief complaint) Other dysphagiaDisease of stomach and duodenum, unspecifiedDyspha sam, unspecifiedAnemia , unspecified 4 Shukri Padron. [address], [facility] [address], [facility] [place], [id number] , [place]. [phone] Referring Provider: Rosibel Gill, [address] [place] [address], [place], [address]. tel:[phone] [facility], [address] [address], [place], [id number], [place] tel:[phone] [facility] No Information 4 Dannie Juarez. [address], [facility] [address], [place], [place], [id number] , [place]. [phone] Family History Family Member Type Diagnosis Age At Onset Father Problem (finding) Alcoholism Father Problem (finding) Cirrhosis Mother Problem (finding) GERD Brother Problem (finding) Gallbladder disease Daughter Problem (finding) Thyroid disorder Mother Problem (finding) Alcoholism Immunizations Vaccine Date Status Comments SARS-COV-2 (COVID-19) vaccin e, mRNA, spike protein, LNP, preservative free, 50 mcg/0.5 mL dose administered Note: [facility] bi-direct ional interface ; Source: Other Registry tetanus and diphtheria toxoi ds, adsorbed, preservative free, for adult use (5 Lf of tetanus toxoid and 2 Lf of diphtheria toxoid) administered Note: [facility] bi-direct ional interface ; Source: Other Registry influenza, seasonal vaccine, quadrivalent, adjuvanted, 0.5mL dose, preservative free administered Note: [facility] bi-di rectional interface ; Source: Other Registry SARS-COV-2 (COVID-19) vaccin e, mRNA, spike protein, LNP, bivalent, preservative free, 30 mcg/0.3 mL dose, kay-sucrose formulation administered Note: [facility] bi-direct ional interface ; Source: Other Registry influenza, seasonal vaccine, quadrivalent, adjuvanted, 0.5mL dose, preservative free administered Note: [facility] bi-di rectional interface ; Source: Other Registry SARS-COV-2 (COVID-19) vaccin e, mRNA, spike protein, LNP, bivalent, preservative free, 30 mcg/0.3 mL dose, kay-sucrose formulation administered Note: [facility] bi-direct ional interface ; Source: Other Registry SARS-COV-2 (COVID-19) vaccin e, mRNA, spike protein, LNP, preservative free, 30 mcg/0.3mL dose, kay-sucrose formulation administered Note: [facility] bi- directional interface ; Source: Other Registry influenza, seasonal vaccine, quadrivalent, adjuvanted, 0.5mL dose, preservative free administered Note: [facility] bi-di rectional interface ; Source: Other Registry SARS-COV-2 (COVID-19) vaccin e, mRNA, spike protein, LNP, preservative free, 100 mcg/0.5mL dose or 50 mcg/0.25mL dose administered Note: [facility] bi -directional interface ; Source: Other Registry SARS-COV-2 (COVID-19) vaccin e, mRNA, spike protein, LNP, preservative free, 100 mcg/0.5mL dose or 50 mcg/0.25mL dose administered Note: [facility] bi -directional interface ; Source: Other Registry SARS-COV-2 (COVID-19) vaccin e, mRNA, spike protein, LNP, preservative free, 100 mcg/0.5mL dose or 50 mcg/0.25mL dose administered Note: [facility] bi -directional interface ; Source: Other Registry influenza, seasonal vaccine, quadrivalent, adjuvanted, 0.5mL dose, preservative free administered Note: [facility] bi-di rectional interface ; Source: Other Registry Seasonal trivalent influenza vaccine, adjuvanted, preservative free administered Note: [facility] bi-direct ional interface ; Source: Other Registry Seasonal trivalent influenza vaccine, adjuvanted, preservative free administered Note: [facility] bi-direct ional interface ; Source: Other Registry Seasonal trivalent influenza vaccine, adjuvanted, preservative free administered Note: [facility] bi-direct ional interface ; Source: Other Registry Prevnar 13 administered Note: [facility] bi-d irectional interface ; Source: Other Registry influenza, high dose seasona l, preservative-free administered Note: [facility] bi-direct ional interface ; Source: Other Registry influenza, high dose seasona l, preservative-free administered Note: [facility] bi-direct ional interface ; Source: Other Registry influenza, high dose seasona l, preservative-free administered Note: [facility] bi-direct ional interface ; Source: Other Registry influenza, high dose seasona l, preservative-free administered Note: [facility] bi-direct ional interface ; Source: Other Registry zoster vaccine, live administered Note: [facility] bi-directional interface ; Source: Other Registry Pneumovax 23 administered Note: [facility] bi-d irectional interface ; Source: Other Registry tetanus toxoid, reduced diphtheria toxoid, and acellular pertussis vaccine, adsorbed administered Note: [facility] b i-directional interface ; Source: Other Registry Influenza, seasonal, injecta ble, preservative free administered Note: [facility] bi-direct ional interface ; Source: Other Registry Influenza, seasonal, injectable administe red Note: [facility] bi- directional interface ; Source: Other Registry Payers Payer name Insurance type Covered alliance party ID Authoriza tierich(s) Medicare [facility] [id number] [employer] [id number] Social History Type Description Quantity Date Captured Comments Sex Female Smoking Status No Information Chief Complaint And Reason For Visit No Information Reason For Referral Reason For Referral No Information History Of Present Illness Encounter Date Complaint History Of Prese nt Illness GI Symptoms or Concerns Functional Status Date Functional Assessmen t No Information Instructions Date Instruction Additional Infor mation No Information Assessments Type Assessment Date No Information Patient Care Teams Name Effective Dates (start - stop) Status Members No Information
--- OUTSIDE RECORDS SUMMARY | 2024-05-21 22:51 | XMS_ITS | Clinical Summary ---
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 <=0.12: S Escherichia coli MEROPENEM <=0.25: S Escherichia coli NITROFURANTOIN <=16: S Sowmya Byrnes DO MICROBIOLOGY [facility] [address] [place] [address], * (ABNORMAL) IRON PLUS IRON BINDING CAP (05/12/2024 12:37 PM CDT) IRON 49 37 - 145 ug/dL 05/13/2024 12:17 AM CDT [facility] UIBC (UNSATURATED) 165 112 - 347 ug/dL 05/13/2024 12:17 AM CDT [facility] IRON BINDING CAPACITY 214(L) 250 - 400 ug/dL 05/13/2024 12:17 AM CDT [facility] IRON,% SATURATION 23 14 - 50 % 05/13/2024 12:17 AM CDT [facility] Blood BLOOD SPECIMEN / Unknown Venipuncture / Unknown 05/12/2024 12:37 PM CDT 05/12/2024 12:39 PM CDT Riri Parikh NP CHEMISTRY Performing Organization Address City/[facility]/ZIP Co de Phone Number [facility] [address] [place] [id number], [place] * RETICULOCYTES (05/12/2024 12:37 PM CDT) RETIC% 1.1 0.5 - 1.5 % 05/12/2024 10:23 PM CDT [facility] RETIC (ABSOLUTE) 0.04 0.03 - 0.08 mil/cu mm 05/12/2024 10:23 PM CDT [facility] Blood BLOOD SPECIMEN / Unknown Venipuncture / Unknown 05/12/2024 12:37 PM CDT 05/12/2024 12:39 PM CDT Narrative [facility] - 05/12/2024 10:23 PM CDT This procedure was originally ordered at [facility]. Riri Parikh NP HEMATOLOGY [facility] [address] [place] [id number], [place] * (ABNORMAL) FERRITIN (05/12/2024 12:37 PM CDT) FERRITIN 186.0(H) 15.0 - 150.0 ng/mL 05/13/2024 12:17 AM CDT [facility] Blood BLOOD SPECIMEN / Unknown Venipuncture / Unknown 05/12/2024 12:37 PM CDT 05/12/2024 12:39 PM CDT Riri Parikh NP CHEMISTRY [facility] 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 RECOMMENDATIONS: The National Osteoporosis Foundation recommends [...] Elizabeth Oviedo PA-C Narrative 10/03/2021 6:12 PM [employer]PERVISOR [employer]ECH For Patients: Results are automatically released to your [employer] account once available, in compliance with federal regulations. This means that you may see your results before your provider has had a chance to review them. Please allow 2-3 business days for your provider to comment on the results. XR DXA Bone Mineral Density (BMD) EXAM LOCATION: [address] [address] PATIENT NAME: Nathalie Walker DATE OF : [...] two scanners are made by the same billboard mechanic. PROCEDURE: Dual-energy x-ray absorptiometry performed with routine [...] ANTI HCV (07/08/2020 9:56 AM CDT) Pathologist [facility] HEPATITIS C ANTIBODY Non-React victorino Non-React victorino 07/08/2020 5:37 PM CDT [facility] Comment:Antibodies to HCV no t detected; does not exclude the possibility of exposure to HCV. Blood BLOOD SPECIMEN / Unknown Venipuncture / Unknown 07/08/2020 9:56 AM CDT 07/08/2020 9:57 AM CDT Rosibel Walsh MD SEND OUTS [facility] [address] [place] [address], from Last 3 Months or Most Recently Relevant to Health Maintenance Advance Directives Documents on File Type Date Recorded Patient [employer] Expl anation Healthcare Directive 08/31/2013 3:16 PM N [facility], 08/27/2013 * Full Code (Latest Code Status [...] Code Status Discussion: Not Discussed Care Teams Invasive Physician Relationship Specialty Start Date End Date Rosibel Walsh MD [address] [place] [address] PCP - General Family Practice 06/16/12 Ulisses Carney MD [address] [facility] [address] [facility] [address] [place] [address] Rheumatology Rheumatology 11/29/17 Riri Parikh, ESPERANZA [address] [place] [address] Nurse Practitioner Hematology and Oncology 02/20/24 Conchita Fierro MD [address] [place] [address] Medical Oncologist Hematology and Oncology 02/20/24
== END 2024-05-16 16:31 | disposition home or self-care (01) ==
LOC: AMB 05-21 22:49
PROVIDERS: PCP Family Medicine; Visit Provider Family Medicine
DX: R50.9 Fever, unspecified (principal); R41.82 Altered mental status, unspecified; R53.1 Weakness
CPT/HCPCS: A0425; A0427

== ENCOUNTER 2024-05-16 17:18 | Inpatient (IN) | payer MEDICARE, BC, SELFPAY ==
[2024-05-16] VITALS (29 sets, daily range): BP systolic 92–120; BP diastolic 53–72; PULSE 69–83; RESP 12–22; TEMP 36.7–38.6; O2SAT 91–100; BMI 19.5; BMI 19.9
--- NOTE | 2024-05-16 17:20 | CRLHL7_ITS ---
For Patients: As a result of the Century Cures Act, medical imaging exams and procedure reports are released immediately into your electronic medical record. You may view this report before your referring provider. If you have questions, please contact your health care provider. INDICATION: Hypoxia. TECHNIQUE: Chest 1 portable view. COMPARISON: None. FINDINGS: No pneumothorax or pleural effusion. Lungs are clear. Cardiac and mediastinal contours are within normal limits. Mildly dilated gas-filled small bowel loops in the abdomen. IMPRESSION: 1. No evidence of acute cardiopulmonary disease. 2. Mildly dilated gas-filled small bowel in the visualized abdomen. Attention to this on clinical and imaging follow-up recommended as indicated. Dictated by Miller Garcia MD @ 05/16/2024 6:25:56 PM (Electronically Signed)
[2024-05-16] MEDS: 0.9 % SODIUM CHLORIDE 1000 ml 1,000 ML IV (17:34)
[2024-05-16 17:50] LABS: Lactate* 0.8 mmol/L (0.5-1.9)
[2024-05-16 17:58] LABS: Appearance Urine Clear (Clear); Bilirubin Urine Negative (Negative); Blood Urine 2+ (Negative); Color Urine Yellow (Yellow); Glucose Urine Negative (Negative); Ketones Urine 1+ (Negative); Leukocyte Esterase Urine 1+ (Negative); Nitrite Urine Positive (Negative); Protein Urine 2+ (Negative); Urobilinogen Urine 0.2 (0.2-1.0); pH Urine 5.5 (5.0-8.5)
--- NOTE | 2024-05-16 17:58 | ED_ITS ---
HPI - General Adult General Chief complaint: Fever Stated complaint: Sepsis Time Seen by Provider: 05/16/24 17:19 History of Present Illness HPI narrative: This 78-year-old female lives at home with her daughter. She is not been feeling well for the past 3 or 4 days. She was seen in an urgent care yesterday and diagnosed with a urinary tract infection. She was prescribed an antibiotic and it is uncertain whether she has started to take this medicine. Ambulance was called to the home today and noted on arrival a systolic blood pressure of 70. They were unable to obtain a temperature but states that she felt warm. Upon arrival here her temperature is normal. An IV was established prior to arrival and she had received almost a L of fluids. She was altered mental status upon arrival also but now has improved by the time she arrives here. Her blood glucose is in normal range. Related Data Home Medications ?Medication ?Instructions ?Recorded ?Confirmed atenolol 25 mg tablet 25 mg PO DAILY 12/20/22 10/04/23 atorvastatin 20 mg tablet 20 mg PO HS 12/20/22 10/04/23 cholecalciferol (vitamin D3) 25 25 mcg PO DAILY 12/20/22 10/04/23 mcg (1,000 unit) capsule duloxetine 20 mg capsule,delayed 20 mg PO BID 12/20/22 10/04/23 release esomeprazole magnesium 40 mg 40 mg PO DAILY 12/20/22 10/04/23 capsule,delayed release famotidine 20 mg tablet 20 mg PO HS 12/20/22 10/04/23 ferrous gluconate 324 mg (38 mg 324 mg PO DAILY 12/20/22 10/04/23 iron) tablet gabapentin 300 mg capsule 300 - 600 mg PO HS 12/20/22 10/04/23 nortriptyline 10 mg capsule 10 mg PO HS 12/20/22 10/04/23 oxycodone-acetaminophen 5 mg-325 1 tab PO TID PRN 12/20/22 10/04/23 mg tablet sumatriptan succinate 50 mg tablet 50 mg PO DIRECTED 12/20/22 10/04/23 vitamin E 268 mg (400 unit) capsule 536 mg PO DAILY 12/20/22 10/04/23 albuterol sulfate 90 mcg/actuation 1 - 2 puff inhalation Q4H PRN 10/04/23 10/04/23 aerosol inhaler wheezing guaifenesin 600 mg tablet, 600 mg PO BID PRN 10/04/23 10/04/23 extended release 12 hr (Mucinex) trospium 20 mg tablet 20 mg PO BID 10/04/23 10/04/23 cephalexin 500 mg capsule 500 mg PO BID 05/16/24 05/16/24 Previous Rx's ?Medication ?Instructions ?Recorded metronidazole 500 mg tablet 500 mg PO BID #20 tabs 10/09/23 Allergies Allergy/AdvReac Type Severity Reaction Status Date / Time vancomycin Allergy Severe Angioedema Verified 01/28/24 08:28 amoxicillin [From Augmentin] Allergy Mild Rash Verified 01/28/24 08:28 clavulanic acid Allergy Mild Rash Verified 01/28/24 08:28 [From Augmentin] Review of Systems Status of ROS: Reports: 10 or more systems reviewed and unremarkable except as noted in History and below Narrative: Constitutional: No fevers, no weight gain or loss. Eyes: No discharge. No vision changes. HENT: No congestion, no sore throat, no ear pain. Cardiovascular: No chest pain, no palpitations. Respiratory: No shortness of breath, no wheezes, no cough. Gastrointestinal: No abdominal pain, no vomiting, no diarrhea. Genitourinary: She reports urinary tract infection. Musculoskeletal: Normal range of motion. Skin: No rashes, no pruritis. Neurological: No dizziness, weakness, sensory change, speech change. Endo/Heme/Allergies: No bruising or bleeding. No polydipsia. Pysch: no suicidality, no anxiety, no insomnia. All other systems reviewed and are negative. 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 - Other specified polyneuropathies (ICD-10) Sensorineural hearing loss ?H90.5 - Unspecified sensorineural hearing loss (ICD-10) Migraines ?G43.909 - Migraine, unspecified, not intractable, without status migrainosus (ICD-10) Dry mouth ?R68.2 - Dry mouth, unspecified (ICD-10) Urge incontinence ?N39.41 - Urge incontinence (ICD-10) Dermatochalasia ?H02.839 - Dermatochalasis of unspecified eye, unspecified eyelid (ICD-10) Pterygium eye ?H11.009 - Unspecified pterygium of unspecified eye (ICD-10) Adjustment disorder ?F43.20 - Adjustment disorder, unspecified (ICD-10) HTN (hypertension) ?I10 - Essential (primary) hypertension (ICD-10) Pain medication agreement ?Z02.89 - Encounter for other administrative examinations (ICD-10) Lumbar facet arthropathy ?M47.816 - Spondylosis without myelopathy or radiculopathy, lumbar region (ICD-10) Hip osteoarthritis ?M16.9 - Osteoarthritis of hip, unspecified (ICD-10) Injury of long thoracic nerve ?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.8XXA - Injury of other specified nerves of thorax, initial encounter (ICD-10) Hyperlipidemia, unspecified ?E78.5 - Hyperlipidemia, unspecified (ICD-10) Neck pain ?M54.2 - Cervicalgia (ICD-10) Spinal stenosis, lumbar region without neurogenic claudication ?M48.061 - Spinal stenosis, lumbar region without neurogenic claudication (ICD-10) Surgical History S/P YAG capsulotomy ?Z98.890 - Other specified postprocedural states (ICD-10) Hx of tonsillectomy ?Z90.89 - Acquired absence of other organs (ICD-10) Cataract extraction status ?Z98.49 - Cataract extraction status, unspecified eye (ICD-10) History of carpal tunnel release ?Z98.890 - Other specified postprocedural states (ICD-10) H/O blepharoplasty ?Z98.890 - Other specified postprocedural states (ICD-10) Family History (Updated 10/04/23 @ 14:10 by Faisal August MD) Other Gout Social History (Updated 10/04/23 @ 14:10 by Faisal August MD) Narrative: She lives in a home in [place] with her 2 daughters and her son in law. She reports this is going well for her. Her daughter Esther is healthcare power of deputy county attorney. Code status is full. She does not smoke. She does not drink alcohol. What is your current living situation?: unable to answer Problems where you live: unable to answer Problems where you live details: NA In the past 12 months, utilities in danger of being shut off: unable to answer In past 12 months, lack of transportation kept you from medical appts, meetings, work, or getting things needed for daily living: unable to answer In the past 12 mos, have been you worried that your food would run out before you had money to buy more?: unable to answer In the past 12 mos, the food you bought just didn't last and you didn't have money to buy more?: unable to answer Highest level of school completed/degree received: 12th grade, no diploma Smoking Status: Never smoker Do you use any of these nicotine containing products: None Second hand tobacco smoke exposure: No How often do you have a drink containing alcohol: never AUDIT-C Alcohol total score: 0 Non-prescribed substance use: denies use How often does anyone, including family, friends and others, physically hurt you : unable to answer How often does anyone, including family, friends and others, insult or talk down to you: unable to answer How often does anyone, including family, friends and others, threaten you with harm: unable to answer How often does anyone, including family, friends and others, scream or curse at you: unable to answer service: No Exam Narrative: Exam Narrative: Constitutional: Well-developed, well-nourished, no acute distress. HEENT: Normocephalic, atraumatic. Neck: Normal range of motion. Nontender. Supple. Heart: Regular. No murmurs. Normal rate. Intact distal pulses. Lungs: Clear to auscultation. No chest discomfort. No wheezes, rhonchi, or rales. Abdomen: Normal bowel sounds. Nontender. No rebound tenderness. Genitalia: Deferred. Back: No midline tenderness. Normal range of motion. Extremities: Normal range of motion. No injury. Skin: Intact. No rash. Warm. No erythema or pallor. Neurologic: No altered sensation. No weakness. Alert and oriented. She is hard of hearing. Psychiatric: No suicidality. No anxiety or depression. No insomnia. Nursing notes and vitals signs are reviewed. Const: Vital Signs, click to edit/add: Vital Signs - 24 hr 05/16/24 17:26 05/16/24 17:36 05/16/24 17:41 Temperature 101.4 F H Pulse Rate 77 Pulse Rate [Pulse Oximeter] 78 Respiratory Rate 22 Blood Pressure 100/58 L Blood Pressure [Le ft Upper Arm] 92/58 L Pulse Oximetry 93 91 Oxygen Delivery Me thod Room Air 05/16/24 17:52 05/16/24 18:02 05/16/24 18:03 Temperature Pulse Rate 78 77 Pulse Rate [Pulse Oximeter] Respiratory Rate Blood Pressure 102/53 L 109/60 Blood Pressure [Le ft Upper Arm] Pulse Oximetry 100 98 Oxygen Delivery Md thod 05/16/24 18:11 05/16/24 18:13 05/16/24 18:15 Temperature 101.3 F H Pulse Rate 77 78 Pulse Rate [Pulse Oximeter] Respiratory Rate 18 Blood Pressure 107/60 Blood Pressure [Le ft Upper Arm] Pulse Oximetry 92 [facility] 05/16/24 18:21 05/16/24 18:22 05/16/24 18:30 Temperature Pulse Rate 76 74 75 Pulse Rate [Pulse Oximeter] Respiratory Rate Blood Pressure 104/60 Blood Pressure [Le ft Upper Arm] Pulse Oximetry 100 100 100 [facility] 05/16/24 18:32 05/16/24 18:41 05/16/24 18:45 Temperature Pulse Rate 73 73 72 Pulse Rate [Pulse Oximeter] Respiratory Rate Blood Pressure 102/63 114/59 L Blood Pressure [Le ft Upper Arm] Pulse Oximetry 100 100 100 [facility] 05/16/24 18:50 05/16/24 18:52 05/16/24 19:00 Temperature 99.1 F Pulse Rate 72 72 Pulse Rate [Pulse Oximeter] Respiratory Rate Blood Pressure 110/65 Blood Pressure [Le ft Upper Arm] Pulse Oximetry 100 Oxygen Delivery Md thod 05/16/24 19:03 05/16/24 19:05 05/16/24 19:12 Temperature Pulse Rate 72 73 69 Pulse Rate [Pulse Oximeter] Respiratory Rate Blood Pressure 113/69 106/61 Blood Pressure [Le ft Upper Arm] Pulse Oximetry 100 95 Oxygen Delivery Me thod Course Vital Signs Vital signs: Initial Vital Signs Temperature 101.4 F H 05/16/24 17:26 Temperature Source Temporal Artery Scan 05/16/24 17:26 Pulse Rate 78 05/16/24 17:26 Pulse Rhythm Regular 05/16/24 17:26 Respiratory Rate 05/16/24 17:26 Blood Pressure 92/58 L 05/16/24 17:26 Blood Pressure Mean 69 L 05/16/24 17:26 Blood Pressure Position Supine 05/16/24 17:26 Pulse Oximetry 93 05/16/24 17:26 Oxygen Delivery Method Room Air 05/16/24 17:26 Vital Signs Temperature 101.4 F H 05/16/24 17:26 Pulse Rate 78 05/16/24 17:26 Respiratory Rate 22 05/16/24 17:26 Blood Pressure 92/58 L 05/16/24 17:26 Pulse Oximetry 93 05/16/24 17:26 Oxygen Delivery Method Room Air 05/16/24 17:26 Temperature 99.1 F 05/16/24 18:50 Pulse Rate 69 05/16/24 19:12 Respiratory Rate 18 05/16/24 18:13 Blood Pressure 106/61 05/16/24 19:12 Pulse Oximetry 95 05/16/24 19:12 Oxygen Delivery Method Room Air 05/16/24 18:13 Medications Administered Medications: Discontinued Medications Generic Name Dose Route Start Last Admin Trade Name Agustoq PRN Reason Stop Dose Admin Sodium Chloride 1,000 mls @ 1,000 mls/hr 05/16/24 17:30 05/16/24 18:00 0.9 % Sodium Chloride 1000 Ml IV 05/16/24 18:29 Infused .Q1H RISSA Infusion Ceftriaxone Sodium 1 gm/ 100 mls @ 200 mls/hr 05/16/24 17:20 05/16/24 18:35 Sodium Chloride IVPB 05/16/24 17:21 Infused ONCE ONE Infusion Medical Decision Making MDM Narrative Medical decision making narrative: This patient comes in by ambulance because of hypotension and altered mental state. Upon arrival here she was much improved after receiving IV fluids. The patient was seen in a clinic yesterday and diagnosed with the urinary tract infection. She has taken 3 tablets of her antibiotic to treat this infection and apparently is a failed treatment as her urinalysis today shows greater than 100 white blood cells per high-powered field with nitrites in place. A blood cultures obtained. I did not order 2 blood cultures because we are short of blood culture vials with only 2 others left be sides this 1. She did receive another L of normal saline here. Her lactate returns normal at 0.8. I did speak with the hospitalist production operations manager, Dr. Pimentel, who agrees to her admission into the hospital. The patient did receive a g of Rocephin intravenously soon after arrival and after the blood cultures obtained. Lab Data Labs: Lab Results 05/16/24 05/16/24 05/16/24 Range/Units 17:35 17:40 17:43 WBC 9.12 (4.50-11.00) K/uL RBC 3.42 L (4.00-5.20) m/uL Hgb 10.0 L (12.0-16.0) gm/dL Hct 30.8 L (33.0-51.0) % MCV 90 (80-100) fL MCH 29 (26-34) pg MCHC 33 (32-36) gm/dL RDW Coeff of [place] 13.0 (11.5-15.5) % Plt Count 174 (140-440) K/uL Neut % (Auto) 82.0 H (42.0-72.0) % Lymph % (Auto) 6.3 L (20-44) % [place] % (Auto) 10.4 (0.0-11.0) % Eos % (Auto) 0.2 (0.0-7.0) % Baso % (Auto) 0.3 (0.0-3.0) % Neut # (Auto) 7.50 H (1.7-7.0) K/uL Lymph # (Auto) 0.60 L (0.90-2.90) K/uL [place] # (Auto) 0.90 (0.00-0.90) K/UL Eos # (Auto) 0.02 (0.00-0.50) K/uL Baso # (Auto) 0.03 (0.00-0.30) K/uL Abs Immat Gran (auto) 0.07 (0.00-0.30) K/uL Imm/Tot Granulo (auto) 0.8 % Sodium 129 L (135-149) mmol/L Potassium 4.2 (3.6-5.1) mmol/L Chloride 99 (96-114) mmol/L Carbon Dioxide 21 (20-32) mmol/L Anion Gap 9 (7-15) mEq/L BUN 38 H (7-30) mg/dL Creatinine 1.7 H (0.5-1.5) mg/dL Estimated Creat Clear 23.59 Estimated GFR 31 ml/min Glucose 91 (60-115) mg/dL Lactate 0.8 (0.5-1.9) mmol/L Calcium 8.1 L (8.4-10.6) mg/dL Urine Color (Yellow) Urine Appearance (Clear) Urine pH (5.0-8.5) Ur Specific [place] (1.000-1.030) Urine Protein (Negative) Urine Glucose (UA) (Negative) Urine Ketones (Negative) Urine Blood (Negative) Urine Nitrite (Negative) Urine Bilirubin (Negative) Urine Urobilinogen (0.2-1.0) Ur Leukocyte Esterase (Negative) Urine RBC (0-2) Urine WBC (0-5) Ur Squamous Epith Cells (None-Few) Urine Bacteria (None) SARS-CoV-2 (PCR) Negative SARS-CoV-2 (Negative) Influenza Type A (PCR) Negative PCR FLU A (Negative) Influenza Type B (PCR) Negative PCR FLU B (Negative) RSV (PCR) Negative PCR RSV (Negative) POC Troponin I 0.01 (0.01-0.04) ng/ml 05/16/24 Range/Units 17:50 WBC (4.50-11.00) K/uL RBC (4.00-5.20) m/uL Hgb (12.0-16.0) gm/dL Hct (33.0-51.0) % MCV (80-100) fL MCH (26-34) pg MCHC (32-36) gm/dL RDW Coeff of [place] (11.5-15.5) % Plt Count (140-440) K/uL Neut % (Auto) (42.0-72.0) % Lymph % (Auto) (20-44) % [place] % (Auto) (0.0-11.0) % Eos % (Auto) (0.0-7.0) % Baso % (Auto) (0.0-3.0) % Neut # (Auto) (1.7-7.0) K/uL Lymph # (Auto) (0.90-2.90) K/uL [place] # (Auto) (0.00-0.90) K/UL Eos # (Auto) (0.00-0.50) K/uL Baso # (Auto) (0.00-0.30) K/uL Abs Immat Gran (auto) (0.00-0.30) K/uL Imm/Tot Granulo (auto) % Sodium (135-149) mmol/L Potassium (3.6-5.1) mmol/L Chloride (96-114) mmol/L Carbon Dioxide (20-32) mmol/L Anion Gap (7-15) mEq/L BUN (7-30) mg/dL Creatinine (0.5-1.5) mg/dL Estimated Creat Clear Estimated GFR ml/min Glucose (60-115) mg/dL Lactate (0.5-1.9) mmol/L Calcium (8.4-10.6) mg/dL Urine Color Yellow (Yellow) Urine Appearance Clear (Clear) Urine pH 5.5 (5.0-8.5) Ur Specific [place] 1.020 (1.000-1.030) Urine Protein 2+ A (Negative) Urine Glucose (UA) Negative (Negative) Urine Ketones 1+ A (Negative) Urine Blood 2+ A (Negative) Urine Nitrite Positive A (Negative) Urine Bilirubin Negative (Negative) Urine Urobilinogen 0.2 (0.2-1.0) Ur Leukocyte Esterase 1+ A (Negative) Urine RBC 10-25 A (0-2) Urine WBC >100 A (0-5) Ur Squamous Epith Cells None (None-Few) Urine Bacteria Moderate A (None) SARS-CoV-2 (PCR) (Negative) Influenza Type A (PCR) (Negative) Influenza Type B (PCR) (Negative) RSV (PCR) (Negative) POC Troponin I (0.01-0.04) ng/ml Imaging Data Chest x-ray: Radiologist's impression: 1. No evidence of acute cardiopulmonary disease. 2. Mildly dilated gas-filled small bowel in the visualized abdomen. Attention to this on clinical and imaging follow-up recommended as indicated. Discharge Plan Discharge Clinical Impression: Urinary tract infection Patient Disposition: Admitted As Inpatient Condition: Improved Prescriptions: No Action albuterol sulfate 90 mcg/actuation HFA aerosol inhaler 1 - 2 puff INHALATION Q4H PRN (Reason: wheezing) guaifenesin [Mucinex] 600 mg tablet extended release 12hr 600 mg PO BID PRN trospium 20 mg tablet 20 mg PO BID metronidazole 500 mg tablet 500 mg PO BID Qty: 20 0RF cephalexin 500 mg capsule 500 mg PO BID atenolol 25 mg tablet 25 mg PO DAILY Patient Comments: TAKE ONE TABLET BY MOUTH ONE TIME DAILY atorvastatin 20 mg tablet 20 mg PO HS Patient Comments: TAKE ONE TABLET BY MOUTH ONE TIME DAILY AT BEDTIME duloxetine 20 mg capsule,delayed release(DR/EC) 20 mg PO BID Patient Comments: TAKE ONE CAPSULE BY MOUTH TWICE DAILY esomeprazole magnesium 40 mg capsule,delayed release(DR/EC) 40 mg PO DAILY Patient Comments: TAKE ONE CAPSULE BY MOUTH ONE TIME DAILY BEFORE A MEAL. famotidine 20 mg tablet 20 mg PO HS Patient Comments: Take 1 Tablet (20 mg) by mouth at bedtime ferrous gluconate 324 mg (38 mg iron) tablet 324 mg PO DAILY Patient Comments: TAKE ONE TABLET BY MOUTH ONE TIME DAILY WITH A MEAL. gabapentin 300 mg capsule 300 - 600 mg PO HS Patient Comments: nortriptyline 10 mg capsule 10 mg PO HS Patient Comments: TAKE ONE CAPSULE BY MOUTH ONE TIME DAILY AT BEDTIME oxycodone-acetaminophen 5-325 mg tablet 1 tab PO TID PRN Patient Comments: Take 1 Tablet by mouth 3 times daily if needed for Pain. do not exceed 4000mg of acetaminophen in 24 hours. sumatriptan succinate 50 mg tablet 50 mg PO DIRECTED Patient Comments: take 1 tablet by mouth at onset of headache. may repeat in 2 hours if needed. max dose: 200mg per 24 hours. cholecalciferol (vitamin D3) 25 mcg (1,000 unit) capsule 25 mcg PO DAILY vitamin E 268 mg (400 unit) capsule 536 mg PO DAILY Patient Comments: take 2 capsules by mouth daily Follow Up/Referrals: Rosibel Walsh MD [Primary Care Provider] -
[2024-05-16] MEDS: cefTRIAXone 1 GM in 0.9 % SODIUM CHLORIDE Mini-bag 100 ML IVPB (18:01)
[2024-05-16 18:02] LABS: Chloride* 99 mmol/L (96-114)
[2024-05-16 18:03] LABS: Potassium* 4.2 mmol/L (3.6-5.1); Sodium* 129 mmol/L (135-149)
[2024-05-16 18:05] LABS: Creatinine* 1.7 mg/dL (0.5-1.5); Est. Creatinine Clearance* 23.59; Estimated Glomerular Filt Rate 31 ml/min
[2024-05-16 18:06] LABS: Anion Gap 9 mEq/L (7-15); Blood Urea Nitrogen* 38 mg/dL (7-30); Calcium* 8.1 mg/dL (8.4-10.6); Carbon Dioxide* 21 mmol/L (20-32); Glucose* 91 mg/dL (60-115)
[2024-05-16 18:07] LABS: Basophils Absolute Auto 0.03 K/uL (0.00-0.30); Basophils Percent Auto 0.3 % (0.0-3.0); Eosinophils Absolute Auto 0.02 K/uL (0.00-0.50); Eosinophils Percent Auto 0.2 % (0.0-7.0); Hematocrit 30.8 % (33.0-51.0); Immature Granulocytes Abs Auto 0.07 K/uL (0.00-0.30); Immature Granulocytes Pct Auto 0.8 %; Lymphocytes Percent Auto 6.3 % (20-44); Mean Corpuscular HGB Conc 33 gm/dL (32-36); Mean Corpuscular Hemoglobin 29 pg (26-34); Mean Corpuscular Volume 90 fL (80-100); Monocytes Percent Auto 10.4 % (0.0-11.0); Platelet Count* 174 K/uL (140-440); Red Blood Count 3.42 m/uL (4.00-5.20); White Blood Count* 9.12 K/uL (4.50-11.00)
[2024-05-16 18:08] LABS: Slide Review Reflex No
[2024-05-16 18:15] LABS: Troponin, Point-of-Care* 0.01 ng/ml (0.01-0.04)
[2024-05-16 18:17] LABS: Bacteria Urine Moderate; WBC Urine >100 (0-5)
[2024-05-16 18:29] LABS: PCR FLU A Negative PCR FLU A (Negative); PCR FLU B Negative PCR FLU B (Negative); PCR RSV Negative PCR RSV (Negative); SARS PCR* Negative SARS-CoV-2 (Negative)
--- OUTSIDE RECORDS SUMMARY | 2024-05-16 18:32 | XMS_ITS | Clinical Summary ---
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
--- NOTE | 2024-05-16 20:28 | PM.IMHP1 ---
Hospitalist- H&P: HPI History of Present Illness Date Seen: 05/16/24 Chief complaint: Sepsis Narrative: Nathalie Walker is a 78 year old woman who presents to the emergency department today via EMS stating she has not felt well for the past 4 days. Initial symptoms included not feeling well, more weak, not interested in eating or drinking, stain in bed much of the day, maybe felt feverish but never took her temperature. Her daughter brought her to the clinic yesterday and was diagnosed with a bladder infection. Urinalysis in the clinic demonstrated 15 ketones, 100 protein, moderate occult blood, positive nitrite, moderate leukocytes, 11-25 red blood cells per high-power field, 51-100 white blood cells per high-power field, and many bacteria. She was started empirically on cephalexin 500 mg orally twice daily. Tolerated the medication without adverse consequence. Despite taking 3 doses of this, her condition worsened such that she was feeling lightheaded. Thus, she presents for further assessment. I look up her lab results in the [facility] clinic patient portal today and notice that currently the urine culture is growing greater than 100,000 colony-forming units of E coli. Sensitivities and resistances are still pending. When EMS presents to her home initial systolic blood pressure is 70 mmHg. They administer 1 L of normal saline and by the time she arrives at the hospital emergency department her systolic blood pressure is 100. When EMS 1st assesses her they note that she is slow to respond to questions. Daughter confirms the same. By the time patient arrives in the emergency department, her mentation is improved. Patient denies dysuria, urgency, frequency, hematuria. Denies flank pain. Denies abdominal pain. Denies nausea vomiting. Acknowledges decreased interest in eating. Review of Systems Status of ROS: Reports: 6 or more systems reviewed and unremarkable except as noted in History and below Narrative: She acknowledges longstanding dyspnea with exertion for which she is being assessed by her primary care physician and her pharmacy services director. Nuclear medicine cardiac stress test performed 11/06/2023 was negative for ischemic changes and demonstrated an ejection fraction of 75%. Transthoracic echocardiogram obtained on 12/31/2022 demonstrated normal LV chamber size and wall thickness with EF of 60-65% with no significant valve disease detected. Computer Education Professor who saw patient about 1 month ago postulate patient may be having increasing diastolic dysfunction. Patient was empirically started on spironolactone 25 mg twice daily at that time. It is unclear if patient is still taking that medications presently. If she is it certainly may be contributing to her presentation of hypotension. Patient designates her daughter, Esther, as her power of compliance attorney for health should that be required. Esther's cell phone number is [phone]. Patient further changes her resuscitation status today from full resuscitation which she had previously indicated when in our hospital to DNR DNI resuscitation status. Esther supportive of her mother's decision at this time. [facility] Medical History (Updated 05/16/24 @ 20:59 by Tae Pimentel MD) Chronic kidney disease, stage 3a ?N18.31 - Chronic kidney disease, stage 3a (ICD-10) Osteoarthritis ?M19.90 - Unspecified osteoarthritis, unspecified site (ICD-10) Cat bite of ankle ?S91.059A - Open bite, unspecified ankle, initial encounter (ICD-10) ?W55.01XA - Bitten by cat, initial encounter (ICD-10) Cellulitis of right ankle ?L03.115 - Cellulitis of right lower limb (ICD-10) Adverse drug reaction ?T50.905A - Adverse effect of unspecified drugs, medicaments and biological substances, initial encounter (ICD-10) FH: total knee replacement ?Z82.69 - Family history of other diseases of the musculoskeletal system and connective tissue (ICD-10) Peripheral motor neuropathy ?G62.89 - Other specified polyneuropathies (ICD-10) Sensorineural hearing loss ?H90.5 - Unspecified sensorineural hearing loss (ICD-10) Migraines ?G43.909 - Migraine, unspecified, not intractable, without status migrainosus (ICD-10) Dry mouth ?R68.2 - Dry mouth, unspecified (ICD-10) Urge incontinence ?N39.41 - Urge incontinence (ICD-10) Dermatochalasia ?H02.839 - Dermatochalasis of unspecified eye, unspecified eyelid (ICD-10) Pterygium eye ?H11.009 - Unspecified pterygium of unspecified eye (ICD-10) Adjustment disorder ?F43.20 - Adjustment disorder, unspecified (ICD-10) HTN (hypertension) ?I10 - Essential (primary) hypertension (ICD-10) Pain medication agreement ?Z02.89 - Encounter for other administrative examinations (ICD-10) Lumbar facet arthropathy ?M47.816 - Spondylosis without myelopathy or radiculopathy, lumbar region (ICD-10) Hip osteoarthritis ?M16.9 - Osteoarthritis of hip, unspecified (ICD-10) Injury of long thoracic nerve ?S24.8XXA - Injury of other specified nerves of thorax, initial encounter (ICD-10) Hyperlipidemia, unspecified ?E78.5 - Hyperlipidemia, unspecified (ICD-10) Neck pain ?M54.2 - Cervicalgia (ICD-10) Spinal stenosis, lumbar region without neurogenic claudication ?M48.061 - Spinal stenosis, lumbar region without neurogenic claudication (ICD-10) Surgical History (Updated 05/16/24 @ 20:14 by Tae Pimentel MD) History of total right knee replacement ?Z96.651 - Presence of right artificial knee joint (ICD-10) S/P YAG capsulotomy ?Z98.890 - Other specified postprocedural states (ICD-10) Hx of tonsillectomy ?Z90.89 - Acquired absence of other organs (ICD-10) Cataract extraction status ?Z98.49 - Cataract extraction status, unspecified eye (ICD-10) History of carpal tunnel release ?Z98.890 - Other specified postprocedural states (ICD-10) H/O blepharoplasty ?Z98.890 - Other specified postprocedural states (ICD-10) Family History (Updated 05/16/24 @ 20:15 by Tae Pimentel MD) Mother Arthritis Gout Social History Narrative: She lives in a home in [place] with her 2 daughters and her son in law. She reports this is going well for her. Her daughter Esther is healthcare power of compliance attorney. Code status previously was full. on 05/16/2024 patient changes her CODE status to DNR DNI. She does not smoke. She does not drink alcohol. What is your current living situation?: unable to answer Problems where you live: unable to answer Problems where you live details: NA In the past 12 months, utilities in danger of being shut off: unable to answer In past 12 months, lack of transportation kept you from medical appts, meetings, work, or getting things needed for daily living: unable to answer In the past 12 mos, have been you worried that your food would run out before you had money to buy more?: unable to answer In the past 12 mos, the food you bought just didn't last and you didn't have money to buy more?: unable to answer Highest level of school completed/degree received: 12th grade, no diploma Smoking Status: Never smoker Do you use any of these nicotine containing products: None Second hand tobacco smoke exposure: No How often do you have a drink containing alcohol: never AUDIT-C Alcohol total score: 0 Non-prescribed substance use: denies use How often does anyone, including family, friends and others, physically hurt you: unable to answer How often does anyone, including family, friends and others, insult or talk down to you: unable to answer How often does anyone, including family, friends and others, threaten you with harm: unable to answer How often does anyone, including family, friends and others, scream or curse at you: unable to answer service: No Meds Home Medications and Allergies Home Medications ?Medication ?Instructions ?Recorded ?Confirmed ?Type atenolol 25 mg tablet 25 mg PO DAILY 12/20/22 10/04/23 History atorvastatin 20 mg tablet 20 mg PO HS 12/20/22 10/04/23 History cholecalciferol (vitamin D3) 25 25 mcg PO DAILY 12/20/22 10/04/23 History mcg (1,000 unit) capsule duloxetine 20 mg capsule,delayed 20 mg PO BID 12/20/22 10/04/23 History release esomeprazole magnesium 40 mg 40 mg PO DAILY 12/20/22 10/04/23 History capsule,delayed release famotidine 20 mg tablet 20 mg PO HS 12/20/22 10/04/23 History ferrous gluconate 324 mg (38 mg 324 mg PO DAILY 12/20/22 10/04/23 History iron) tablet gabapentin 300 mg capsule 300 - 600 mg PO HS 12/20/22 10/04/23 History nortriptyline 10 mg capsule 10 mg PO HS 12/20/22 10/04/23 History oxycodone-acetaminophen 5 mg-325 1 tab PO TID PRN 12/20/22 10/04/23 History mg tablet sumatriptan succinate 50 mg tablet 50 mg PO DIRECTED 12/20/22 10/04/23 History vitamin E 268 mg (400 unit) capsule 536 mg PO DAILY 12/20/22 10/04/23 History albuterol sulfate 90 mcg/actuation 1 - 2 puff inhalation Q4H PRN 10/04/23 10/04/23 History aerosol inhaler wheezing guaifenesin 600 mg tablet, 600 mg PO BID PRN 10/04/23 10/04/23 History extended release 12 hr (Mucinex) trospium 20 mg tablet 20 mg PO BID 10/04/23 10/04/23 History cephalexin 500 mg capsule 500 mg PO BID 05/16/24 05/16/24 History Allergies Allergy/AdvReac Type Severity Reaction Status Date / Time vancomycin Allergy Severe Angioedema Verified 01/28/24 08:28 amoxicillin [From Augmentin] Allergy Mild Rash Verified 01/28/24 08:28 clavulanic acid Allergy Mild Rash Verified 01/28/24 08:28 [From Augmentin] Exam Narrative: Exam Narrative: I examined the patient the emergency department with her daughter, Esther, at her bedside. Vision and hearing are adequate. Alert and oriented to self, place, time, situation. Friendly, articulate, cooperative. External auditory canals and tympanic membranes are normal. Midline nasal septum. Dry buccal mucosa. Dentition in fair repair. Conjugate gaze. Neck is supple. Midline trachea. No JVD. No hepatojugular reflux. No carotid bruits. Head neck lymphadenopathy is negative. Lungs are clear to auscultation without wheezing, rhonchi, or rales. Chest wall excursions are full. No CVA tenderness. Heart tones with regular rhythm, normal S1-S2, with grade 2-3/6 systolic murmur best heard in left lower sternal border. Computer Education Professor who evaluated the patient about a month ago indicated grade 1-2/6 systolic murmur. PMI is not laterally displaced. Abdomen with active bowel sounds, soft, nontender. Non tympanitic. No rebound or guarding. No focal motor neurologic deficits. Cranial nerves 3-12 grossly normal. No tremor, asterixis, or ataxia. Palpable pulses upper and lower extremities. No dependent edema. Const: Vital Signs, click to edit/add: Vital Signs - 24 hr 05/16/24 17:26 05/16/24 17:36 05/16/24 17:41 Temperature 101.4 F H Pulse Rate 77 Pulse Rate [Pulse Oximeter] 78 Respiratory Rate 22 Blood Pressure 100/58 L Blood Pressure [Le ft Upper Arm] 92/58 L Pulse Oximetry 93 91 Oxygen Delivery Me od Room Air 05/16/24 17:52 05/16/24 18:02 05/16/24 18:03 Temperature Pulse Rate 78 77 Pulse Rate [Pulse Oximeter] Respiratory Rate Blood Pressure 102/53 L 109/60 Blood Pressure [Le ft Upper Arm] Pulse Oximetry [facility] 18:11 05/16/24 18:13 05/16/24 18:15 Temperature 101.3 F H Pulse Rate 77 78 Pulse Rate [Pulse Oximeter] Respiratory Rate 18 Blood Pressure 107/60 Blood Pressure [Le ft Upper Arm] Pulse Oximetry 92 100 Oxygen Delivery [facility] Room Air 05/16/24 18:21 05/16/24 18:22 05/16/24 18:30 Temperature Pulse Rate 76 74 75 Pulse Rate [Pulse Oximeter] Respiratory Rate Blood Pressure 104/60 Blood Pressure [Le ft Upper Arm] Pulse Oximetry 100 100 [facility] 05/16/24 18:32 05/16/24 18:41 05/16/24 18:45 Temperature Pulse Rate 73 73 72 Pulse Rate [Pulse Oximeter] Respiratory Rate Blood Pressure 102/63 114/59 L Blood Pressure [Le ft Upper Arm] Pulse Oximetry 100 100 [facility] 05/16/24 18:50 05/16/24 18:52 05/16/24 19:00 Temperature 99.1 F Pulse Rate 72 72 Pulse Rate [Pulse Oximeter] Respiratory Rate Blood Pressure 110/65 Blood Pressure [Le ft Upper Arm] Pulse Oximetry 100 [facility] 05/16/24 19:03 05/16/24 19:05 05/16/24 19:12 Temperature Pulse Rate 72 73 69 Pulse Rate [Pulse Oximeter] Respiratory Rate Blood Pressure 113/69 106/61 Blood Pressure [Le ft Upper Arm] Pulse Oximetry 100 95 [facility] 05/16/24 19:13 05/16/24 19:15 05/16/24 19:22 Temperature Pulse Rate 71 73 71 Pulse Rate [Pulse Oximeter] Respiratory Rate Blood Pressure 114/55 L Blood Pressure [Le ft Upper Arm] Pulse Oximetry 95 100 Oxygen Delivery Me thod 05/16/24 19:30 05/16/24 19:32 Temperature Pulse Rate 71 74 Pulse Rate [Pulse Oximeter] Respiratory Rate Blood Pressure 117/64 Blood Pressure [Le ft Upper Arm] Pulse Oximetry 100 [facility] - H&P: Result Labs Labs: Short CBC 05/16/24 Range/Units 17:40 WBC 9.12 (4.50-11.00) K/uL Hgb 10.0 L (12.0-16.0) gm/dL Hct 30.8 L (33.0-51.0) % Plt Count 174 (140-440) K/uL BMP 05/16/24 17:40 Sodium 129 L Potassium 4.2 Chloride 99 Carbon Dioxide 21 BUN 38 H Creatinine 1.7 H Glucose 91 Calcium 8.1 L Urine 05/16/24 Range/Units 17:50 Urine Color Yellow (Yellow) Urine Appearance Clear (Clear) Urine pH 5.5 (5.0-8.5) Ur Specific [place] 1.020 (1.000-1.030) Urine Protein 2+ A (Negative) Urine Glucose (UA) Negative (Negative) ECG ECG interpretation date: 05/16/24 Interpretation: Normal sinus rhythm without ischemic changes Imaging Chest x-ray: Radiologist's impression: 1. No evidence of acute cardiopulmonary disease. 2. Mildly dilated gas-filled small bowel in the visualized abdomen. Attention to this on clinical and imaging follow-up recommended as indicated. Assessment and Plan Assessment and plan (1) Urinary tract infection: Problem comment: -Non-specific symptom onset 05/13/23 -Dx and started oral cephalexin 05/15/2024, but symptoms worsened regardless -05/16/24: presented to ED, hypotensive, tachypneic, fever, UA still grossly positive, NIKOLAI; BC obtained and started on IV ceftriaxone Status: Acute (2) Sepsis: Problem comment: -05/16/2024: Encephalopathic prior to arrival in ED, T 101.3 ? F, RR 22, BP 70 mmHg, UTI, Cr up to 1.7 (baseline 1.2) -IVF, IV ceftriaxone, await UC results Status: Acute (3) Hyponatremia: Problem comment: -possibly from spironolactone - hold spironolactone -NS IVF Status: Acute (4) Acute kidney injury superimposed on chronic kidney disease: Problem comment: -Cr 1.7, from baseline of 1.2 -NS IVF Status: Acute Plan 1. Reviewed with patient and daughter. Answered their questions. 2. They are agreeable with above stated plans and recommendations. Total Time Spent Total Time Spent: 70 minutes
[2024-05-16] MEDS: GABAPENTIN 300 MG CAPSULE 600 MG PO (21:50)
[2024-05-16] MEDS: OxyCODONE/APAP 5-325 TABLET 1 TAB PO (21:50)
[2024-05-16] MEDS: ATORVASTATIN 10 MG TABLET 20 MG PO (21:50)
[2024-05-16] MEDS: FAMOTIDINE 20 MG TABLET PO (21:51)
[2024-05-16] MEDS: SODIUM CHLORIDE 0.9 % (FLUSH) 10 ML SYRINGE 5 ML IVF (21:51)
[2024-05-16] MEDS: 0.9 % SODIUM CHLORIDE 1000 ml 1,000 ML 75 ML IV (21:51)
[2024-05-16] MEDS: DULOXETINE HCL 20 MG CAPSULE DR PO (21:51)
[2024-05-16] MEDS: NORTRIPTYLINE 10 MG CAPSULE PO (22:08)
[2024-05-17] VITALS (9 sets, daily range): BP systolic 68–122; BP diastolic 40–65; PULSE 68–89; RESP 14–16; TEMP 36.3–38.3; O2SAT 100
--- NOTE | 2024-05-17 05:42 | PC.NURSE ---
Addendum entered by Rachna Zhou RN 05/17/24 06:27: Orthostatic blood pressures were done for a second time @0620. Pts lyin/58 HR:71, sittin/54 HR:74, standin/40 HR:89. Pt stated feeling weak throughout position changes and needed assistance. notified, no further order. Continuing to monitor. Original Note: Pt is A&Ox3, pleasant and appropriate. Pt is assistx1, GB & W. Lungs clear on auscultation. Murmur auscultated. New IV was placed in the L forearm after L AC fell out while Pt was asleep. Pt denies SOB, CP, N/V. Pt has chronic back pain, PRN pain medication was given. Maintenance fluids running at 125 mL/hr. Pt is tolerating activity and using the restroom. Pt uses call light appropriately.
[2024-05-17 08:02] LABS: HCO3 VBG 25 mmol/L (21-28); Lactate* 0.5 mmol/L (0.5-1.9); PCO2 VBG 51 mmHG (40-50); PO2 VBG < 30.1 mmHG (25-47); pH VBG 7.29 (7.32-7.43)
[2024-05-17 08:55] LABS: Anion Gap 5 mEq/L (7-15); Blood Urea Nitrogen* 35 mg/dL (7-30); Calcium* 7.8 mg/dL (8.4-10.6); Carbon Dioxide* 25 mmol/L (20-32); Chloride* 101 mmol/L (96-114); Creatinine* 1.6 mg/dL (0.5-1.5); Est. Creatinine Clearance* 27.47; Estimated Glomerular Filt Rate 33 ml/min; Glucose* 84 mg/dL (60-115); Phosphorus* 3.4 mg/dL (2.5-4.5); Potassium* 4.5 mmol/L (3.6-5.1); Sodium* 131 mmol/L (135-149)
[2024-05-17 08:56] LABS: C Reactive Protein* 19.9 mg/dL (0.5-1.0)
[2024-05-17 08:58] LABS: Hematocrit 29.6 % (33.0-51.0); Hemoglobin* 9.3 gm/dL (12.0-16.0); Mean Corpuscular HGB Conc 31 gm/dL (32-36); Mean Corpuscular Hemoglobin 29 pg (26-34); Mean Corpuscular Volume 93 fL (80-100); Platelet Count* 174 K/uL (140-440); Red Blood Count 3.19 m/uL (4.00-5.20); White Blood Count* 7.66 K/uL (4.50-11.00)
[2024-05-17] MEDS: DULOXETINE HCL 20 MG CAPSULE DR PO ×2 (09:00→20:43)
[2024-05-17] MEDS: OMEPRAZOLE 20 MG CAPSULE DR 40 MG PO (09:00)
[2024-05-17] MEDS: cefTRIAXone 1 GM in 0.9 % SODIUM CHLORIDE Mini-bag 100 ML IVPB (09:00)
[2024-05-17 09:02] LABS: Slide Review Reflex No
[2024-05-17] MEDS: 0.9 % SODIUM CHLORIDE 1000 ml 1,000 ML 75 ML IV (13:28)
--- NOTE | 2024-05-17 14:53 | P.IMPN_ITS ---
Progress Note: A&P Assessment and plan (1) Urinary tract infection: Problem details: -Non-specific symptom onset 05/13/23 -Dx and started oral cephalexin 05/15/2024, but symptoms worsened regardless -05/16/24: presented to ED, hypotensive, tachypneic, fever, UA still grossly positive, NIKOLAI; BC obtained and started on IV ceftriaxone Urine culture from [facility] 05/15 growing > 100,000 E coli pansensitive, continue IV ceftriaxone (repeat UC 05/17 shows no growth). Continue gentle IVF until adequate oral intake Status: Acute (2) Sepsis: Problem details: RESOLVED -05/16/2024: Encephalopathic prior to arrival in ED, T 101.3 ? F, RR 22, BP 70 mmHg, UTI, Cr up to 1.7 (baseline 1.2) -IVF, IV ceftriaxone, UC growing E coli, pansensitive Status: Resolved (3) Hyponatremia: Problem details: -possibly from spironolactone - hold spironolactone -NS IVF Sodium improving appropriately, currently 131 Status: Acute (4) Acute kidney injury superimposed on chronic kidney disease: Problem details: -Cr 1.7, from baseline of 1.2 -NS IVF Down trending 1.6, continue to monitor, avoid nephrotoxic medications, renally dose Status: Acute (5) Acute hypotension: Problem details: In setting of sepsis, UTI Holding atenolol Status: Acute Subjective Date Seen: 05/17/24 Interval history: Patient is seen with family at bedside. Reports feeling better this morning. Family notes she appears improved, mentation more near normal, ambulating and stronger. Has remained afebrile. Tolerating orals without nausea vomiting. Exam Narrative: Exam Narrative: PHYSICAL EXAM General: Pleasant, conversant, NAD HEENT: Normocephalic, atraumatic, sclera white, EOMI, oral mucosa dry Cardiovascular: RRR, S1S2. No pitting edema Pulmonary: CTA bilaterally without rhonchi, rales, expiratory wheezes. No dyspnea on room air Abdominal: Soft, nondistended, NTTP Neurological: Alert, answering questions appropriately currently, cranial nerves intact, no focal findings Extremities: No gross joint deformity or swelling. AROMI. Neurovascularly intact Skin: Warm, dry. Const: Vital Signs, click to edit/add: Vital Signs - 24 hr 05/16/24 17:26 05/16/24 17:36 05/16/24 17:41 Temperature 101.4 F H Pulse Rate 77 Pulse Rate [Pulse Oximeter] 78 Pulse Rate [orthos tatic lying Pulse Oximeter] Pulse Rate [orthos tatic sitting Puls e Oximeter] Pulse Rate [orthos tatic standing Pul se Oximeter] Respiratory Rate 22 Blood Pressure 100/58 L Blood Pressure [Le ft Arm] Blood Pressure [Le ft Upper Arm] 92/58 L Blood Pressure [Ri ght Arm] Blood Pressure [or thostatic lying Ri ght Arm] Blood Pressure [or thostatic sitting Right Arm] Blood Pressure [or thostatic standing Right Arm] Pulse Oximetry 93 91 Oxygen Delivery Me thod Room Air 05/16/24 17:52 05/16/24 18:02 05/16/24 18:03 Temperature Pulse Rate 78 77 Pulse Rate [Pulse Oximeter] Pulse Rate [orthos tatic lying Pulse Oximeter] Pulse Rate [orthos tatic sitting Puls e Oximeter] Pulse Rate [orthos tatic standing Pul se Oximeter] Respiratory Rate Blood Pressure 102/53 L 109/60 Blood Pressure [Le ft Arm] Blood Pressure [Le ft Upper Arm] Blood Pressure [Ri ght Arm] Blood Pressure [or thostatic lying Ri ght Arm] Blood Pressure [or thostatic sitting Right Arm] Blood Pressure [or thostatic standing Right Arm] Pulse Oximetry 100 98 Oxygen Delivery Me thod 05/16/24 18:11 05/16/24 18:13 05/16/24 18:15 Temperature 101.3 F H Pulse Rate 77 78 Pulse Rate [Pulse Oximeter] Pulse Rate [orthos tatic lying Pulse Oximeter] Pulse Rate [orthos tatic sitting Puls e Oximeter] Pulse Rate [orthos tatic standing Pul se Oximeter] Respiratory Rate 18 Blood Pressure 107/60 Blood Pressure [Le ft Arm] Blood Pressure [Le ft Upper Arm] Blood Pressure [Ri ght Arm] Blood Pressure [or thostatic lying Ri ght Arm] Blood Pressure [or thostatic sitting Right Arm] Blood Pressure [or thostatic standing Right Arm] Pulse Oximetry 92 100 Oxygen Delivery Me thod Room Air 05/16/24 18:21 05/16/24 18:22 05/16/24 18:30 Temperature Pulse Rate 76 74 75 Pulse Rate [Pulse Oximeter] Pulse Rate [orthos tatic lying Pulse Oximeter] Pulse Rate [orthos tatic sitting Puls e Oximeter] Pulse Rate [orthos tatic standing Pul se Oximeter] Respiratory Rate Blood Pressure 104/60 Blood Pressure [Le ft Arm] Blood Pressure [Le ft Upper Arm] Blood Pressure [Ri ght Arm] Blood Pressure [or thostatic lying Ri ght Arm] Blood Pressure [or thostatic sitting Right Arm] Blood Pressure [or thostatic standing Right Arm] Pulse Oximetry 100 100 100 Oxygen Delivery Or thod 05/16/24 18:32 05/16/24 18:41 05/16/24 18:45 Temperature Pulse Rate 73 73 72 Pulse Rate [Pulse Oximeter] Pulse Rate [orthos tatic lying Pulse Oximeter] Pulse Rate [orthos tatic sitting Puls e Oximeter] Pulse Rate [orthos tatic standing Pul se Oximeter] Respiratory Rate Blood Pressure 102/63 114/59 L Blood Pressure [Le ft Arm] Blood Pressure [Le ft Upper Arm] Blood Pressure [Ri ght Arm] Blood Pressure [or thostatic lying Ri ght Arm] Blood Pressure [or thostatic sitting Right Arm] Blood Pressure [or thostatic standing Right Arm] Pulse Oximetry 100 100 100 Oxygen Delivery Or thod 05/16/24 18:50 05/16/24 18:52 05/16/24 19:00 Temperature 99.1 F Pulse Rate 72 72 Pulse Rate [Pulse Oximeter] Pulse Rate [orthos tatic lying Pulse Oximeter] Pulse Rate [orthos tatic sitting Puls e Oximeter] Pulse Rate [orthos tatic standing Pul se Oximeter] Respiratory Rate Blood Pressure 110/65 Blood Pressure [Le ft Arm] Blood Pressure [Le ft Upper Arm] Blood Pressure [Ri ght Arm] Blood Pressure [or thostatic lying Ri ght Arm] Blood Pressure [or thostatic sitting Right Arm] Blood Pressure [or thostatic standing Right Arm] Pulse Oximetry 100 Oxygen Delivery Or thod 05/16/24 19:03 05/16/24 19:05 05/16/24 19:12 Temperature Pulse Rate 72 73 69 Pulse Rate [Pulse Oximeter] Pulse Rate [orthos tatic lying Pulse Oximeter] Pulse Rate [orthos tatic sitting Puls e Oximeter] Pulse Rate [orthos tatic standing Pul se Oximeter] Respiratory Rate Blood Pressure 113/69 106/61 Blood Pressure [Le ft Arm] Blood Pressure [Le ft Upper Arm] Blood Pressure [Ri ght Arm] Blood Pressure [or thostatic lying Ri ght Arm] Blood Pressure [or thostatic sitting Right Arm] Blood Pressure [or thostatic standing Right Arm] Pulse Oximetry 100 95 Oxygen Delivery Me thod 05/16/24 19:13 05/16/24 19:15 05/16/24 19:22 Temperature Pulse Rate 71 73 71 Pulse Rate [Pulse Oximeter] Pulse Rate [orthos tatic lying Pulse Oximeter] Pulse Rate [orthos tatic sitting Puls e Oximeter] Pulse Rate [orthos tatic standing Pul se Oximeter] Respiratory Rate Blood Pressure 114/55 L Blood Pressure [Le ft Arm] Blood Pressure [Le ft Upper Arm] Blood Pressure [Ri ght Arm] Blood Pressure [or thostatic lying Ri ght Arm] Blood Pressure [or thostatic sitting Right Arm] Blood Pressure [or thostatic standing Right Arm] Pulse Oximetry 95 100 Oxygen Delivery Or thod 05/16/24 19:30 05/16/24 19:32 05/16/24 20:00 Temperature Pulse Rate 71 74 Pulse Rate [Pulse Oximeter] Pulse Rate [orthos tatic lying Pulse Oximeter] Pulse Rate [orthos tatic sitting Puls e Oximeter] Pulse Rate [orthos tatic standing Pul se Oximeter] Respiratory Rate Blood Pressure 117/64 Blood Pressure [Le ft Arm] Blood Pressure [Le ft Upper Arm] Blood Pressure [Ri ght Arm] Blood Pressure [or thostatic lying Ri ght Arm] Blood Pressure [or thostatic sitting Right Arm] Blood Pressure [or thostatic standing Right Arm] Pulse Oximetry 100 [facility] 05/16/24 20:29 05/16/24 22:33 05/16/24 23:00 Temperature 98.4 F Pulse Rate Pulse Rate [Pulse Oximeter] 71 Pulse Rate [orthos tatic lying Pulse Oximeter] 75 Pulse Rate [orthos tatic sitting Puls e Oximeter] 73 Pulse Rate [orthos tatic standing Pul se Oximeter] 83 Respiratory Rate 12 Blood Pressure Blood Pressure [Le ft Arm] Blood Pressure [Le ft Upper Arm] Blood Pressure [Ri ght Arm] 120/53 L Blood Pressure [or thostatic lying Ri ght Arm] 119/61 Blood Pressure [or thostatic sitting Right Arm] 114/72 Blood Pressure [or thostatic standing Right Arm] 92/55 L Pulse Oximetry 100 Oxygen Delivery Me thod Room Air Room Air 05/16/24 23:00 05/17/24 03:00 05/17/24 06:00 Temperature 98.1 F 97.8 F Pulse Rate Pulse Rate [Pulse Oximeter] 75 72 Pulse Rate [orthos tatic lying Pulse Oximeter] 71 Pulse Rate [orthos tatic sitting Puls e Oximeter] 74 Pulse Rate [orthos tatic standing Pul se Oximeter] 89 Respiratory Rate 14 14 Blood Pressure Blood Pressure [Le ft Arm] Blood Pressure [Le ft Upper Arm] Blood Pressure [Ri ght Arm] 105/61 Blood Pressure [or thostatic lying Ri ght Arm] 100/58 L Blood Pressure [or thostatic sitting Right Arm] 92/54 L Blood Pressure [or thostatic standing Right Arm] 68/40 L Pulse Oximetry 100 100 Oxygen Delivery Or thod Room Air Room Air 05/17/24 07:43 05/17/24 07:43 05/17/24 07:43 Temperature 97.4 F L Pulse Rate Pulse Rate [Pulse Oximeter] 72 72 Pulse Rate [orthos tatic lying Pulse Oximeter] Pulse Rate [orthos tatic sitting Puls e Oximeter] Pulse Rate [orthos tatic standing Pul se Oximeter] Respiratory Rate 14 14 14 Blood Pressure Blood Pressure [Le ft Arm] Blood Pressure [Le ft Upper Arm] Blood Pressure [Ri ght Arm] 109/61 Blood Pressure [or thostatic lying Ri ght Arm] Blood Pressure [or thostatic sitting Right Arm] Blood Pressure [or thostatic standing Right Arm] Pulse Oximetry 100 100 Oxygen Delivery Or thod Room Air Room Air 05/17/24 11:10 Temperature 97.5 F L Pulse Rate Pulse Rate [Pulse Oximeter] 68 Pulse Rate [orthos tatic lying Pulse Oximeter] Pulse Rate [orthos tatic sitting Puls e Oximeter] Pulse Rate [orthos tatic standing Pul se Oximeter] Respiratory Rate 16 Blood Pressure Blood Pressure [Le ft Arm] 98/49 L Blood Pressure [Le ft Upper Arm] Blood Pressure [Ri ght Arm] Blood Pressure [or thostatic lying Ri ght Arm] Blood Pressure [or thostatic sitting Right Arm] Blood Pressure [or thostatic standing Right Arm] Pulse Oximetry 100 Oxygen Delivery Or thod Room Air Labs Labs: Laboratory Results - last 24 hr 05/16/24 05/16/24 05/16/24 17:35 17:40 17:43 WBC 9.12 RBC 3.42 L Hgb 10.0 L Hct 30.8 L MCV 90 MCH 29 MCHC 33 RDW Coeff of [place] 13.0 Plt Count 174 Neut % (Auto) 82.0 H Lymph % (Auto) 6.3 L [place] % (Auto) 10.4 Eos % (Auto) 0.2 Baso % (Auto) 0.3 Neut # (Auto) 7.50 H Lymph # (Auto) 0.60 L [place] # (Auto) 0.90 Eos # (Auto) 0.02 Baso # (Auto) 0.03 Abs Immat Gran (auto) 0.07 Imm/Tot Granulo (auto) 0.8 VBG pH VBG pCO2 VBG pO2 VBG HCO3 Sodium 129 L Potassium 4.2 Chloride 99 Carbon Dioxide 21 Anion Gap 9 BUN 38 H Creatinine 1.7 H Estimated Creat Clear 23.59 Estimated GFR 31 Glucose 91 Lactate 0.8 Calcium 8.1 L Phosphorus Magnesium C-Reactive Protein Urine Color Urine Appearance Urine pH Ur Specific [place] Urine Protein Urine Glucose (UA) Urine Ketones Urine Blood Urine Nitrite Urine Bilirubin Urine Urobilinogen Ur Leukocyte Esterase Urine RBC Urine WBC Ur Squamous Epith Cells Urine Bacteria SARS-CoV-2 (PCR) Negative SARS-CoV-2 Influenza Type A (PCR) Negative PCR FLU A Influenza Type B (PCR) Negative PCR FLU B RSV (PCR) Negative PCR RSV POC Troponin I 0.01 05/16/24 05/17/24 17:50 07:10 WBC 7.66 RBC 3.19 L Hgb 9.3 L Hct 29.6 L MCV 93 MCH 29 MCHC 31 L RDW Coeff of [place] Plt Count 174 Neut % (Auto) Lymph % (Auto) [place] % (Auto) Eos % (Auto) Baso % (Auto) Neut # (Auto) Lymph # (Auto) [place] # (Auto) Eos # (Auto) Baso # (Auto) Abs Immat Gran (auto) Imm/Tot Granulo (auto) VBG pH 7.29 L VBG pCO2 51 H VBG pO2 < 30.1 VBG HCO3 25 Sodium 131 L Potassium 4.5 Chloride 101 Carbon Dioxide 25 Anion Gap 5 L BUN 35 H Creatinine 1.6 H Estimated Creat Clear 27.47 Estimated GFR 33 Glucose 84 Lactate 0.5 Calcium 7.8 L Phosphorus 3.4 Magnesium 2.0 C-Reactive Protein 19.9 H Urine Color Yellow Urine Appearance Clear Urine pH 5.5 Ur Specific [place] 1.020 Urine Protein 2+ A Urine Glucose (UA) Negative Urine Ketones 1+ A Urine Blood 2+ A Urine Nitrite Positive A Urine Bilirubin Negative Urine Urobilinogen 0.2 Ur Leukocyte Esterase 1+ A Urine RBC 10-25 A Urine WBC >100 A Ur Squamous Epith Cells None Urine Bacteria Moderate A SARS-CoV-2 (PCR) Influenza Type A (PCR) Influenza Type B (PCR) RSV (PCR) POC Troponin I
--- NOTE | 2024-05-17 18:15 | PC.NURSE ---
End of Shift: Patient pleasant and cooperative. Patient lowest BP 98/49, but stable, lungs clear, BS WNL, IV running NS at 75. Patient denies. 1 assist/walker. Patient urinating, no BM. Patient does not have much for an appetite eating less then half of all meals. Patient up in chair for breakfast and lunch. Patient has become more fatigued/weak as the day has progressed.
[2024-05-17] MEDS: ACETAMINOPHEN 325 MG TABLET 650 MG PO (19:52)
[2024-05-17] MEDS: ATORVASTATIN 10 MG TABLET 20 MG PO (20:42)
[2024-05-17] MEDS: GABAPENTIN 300 MG CAPSULE 600 MG PO (20:42)
[2024-05-17] MEDS: FAMOTIDINE 20 MG TABLET PO (20:42)
[2024-05-17] MEDS: NORTRIPTYLINE 10 MG CAPSULE PO (20:43)
[2024-05-17] MEDS: OxyCODONE/APAP 5-325 TABLET 1 TAB PO (20:43)
[2024-05-18 03:00] VITALS: BP 114/74; PULSE 70; RESP 16; TEMP 36.8; O2SAT 100
[2024-05-18] MEDS: 0.9 % SODIUM CHLORIDE 1000 ml 1,000 ML 75 ML IV (03:40)
--- NOTE | 2024-05-18 06:10 | PC.NURSE ---
[id number]: Pt pleasant, sleepy, and appropriate. A low-grade fever had arisen, acetaminophen was given. Pt remained vitally stable. PRN pain medication was given for chronic back pain. Patient is an assistx1 GB and W. Gait is slightly unsteady and slow but improved this morning. Patient tolerates toileting well. Pt took her medications with chocolate pudding and tolerated well. Pt stated that everything she drinks and eats tastes like paper towel.? IV running NS at 75 mL. ?
[2024-05-18 06:52] LABS: Hematocrit 32.1 % (33.0-51.0); Hemoglobin* 10.2 gm/dL (12.0-16.0); Mean Corpuscular HGB Conc 32 gm/dL (32-36); Mean Corpuscular Hemoglobin 29 pg (26-34); Mean Corpuscular Volume 92 fL (80-100); Platelet Count* 184 K/uL (140-440); Red Blood Count 3.49 m/uL (4.00-5.20); White Blood Count* 6.21 K/uL (4.50-11.00)
[2024-05-18 06:57] LABS: Slide Review Reflex No
[2024-05-18 07:07] LABS: Chloride* 106 mmol/L (96-114); Potassium* 3.8 mmol/L (3.6-5.1); Sodium* 134 mmol/L (135-149)
[2024-05-18 07:09] LABS: Creatinine* 1.2 mg/dL (0.5-1.5); Est. Creatinine Clearance* 37.25; Estimated Glomerular Filt Rate 47 ml/min
[2024-05-18 07:10] LABS: Anion Gap 3 mEq/L (7-15); Blood Urea Nitrogen* 20 mg/dL (7-30); Calcium* 7.9 mg/dL (8.4-10.6); Carbon Dioxide* 25 mmol/L (20-32); Glucose* 99 mg/dL (60-115)
--- NOTE | 2024-05-18 07:23 | PM.IMPN1 ---
Progress Note: A&P Assessment and plan (1) Urinary tract infection: Problem details: -Non-specific symptom onset 05/13/23 -Dx and started oral cephalexin 05/15/2024, but symptoms worsened regardless -05/16/24: presented to ED, hypotensive, tachypneic, fever, UA still grossly positive, NIKOLAI; BC obtained and started on IV ceftriaxone Urine culture from [facility] 05/15 growing > 100,000 E coli pansensitive, continue IV ceftriaxone (repeat UC 05/17 shows no growth). Continue gentle IVF until adequate oral intake Status: Acute (2) Sepsis: Problem details: RESOLVED -05/16/2024: Encephalopathic prior to arrival in ED, T 101.3 ? F, RR 22, BP 70 mmHg, UTI, Cr up to 1.7 (baseline 1.2) -IVF, IV ceftriaxone, UC growing E coli, pansensitive Status: Resolved (3) Hyponatremia: Problem details: -possibly from spironolactone - hold spironolactone -NS IVF Sodium improving appropriately, currently 131 Status: Acute (4) Acute kidney injury superimposed on chronic kidney disease: Problem details: -Cr 1.7, from baseline of 1.2 -NS IVF Down trending 1.6, continue to monitor, avoid nephrotoxic medications, renally dose Status: Acute (5) Acute hypotension: Problem details: In setting of sepsis, UTI Holding atenolol Status: Acute Plan Spoke with daughter, Esther, and patient again on 05/17/23 regarding code status as daughter informed me they would like to instead make her full code again, believing she was not of sound mind the evening of admission when DNR/DNI was requested (daughter was present at that conversation as well). Exam Const: Vital Signs, click to edit/add: Vital Signs - 24 hr 05/17/24 07:43 05/17/24 07:43 05/17/24 07:43 Temperature 97.4 F L Pulse Rate [Pulse Oximeter] 72 72 Respiratory Rate 14 14 14 Blood Pressure [Le ft Arm] Blood Pressure [Ri ght Arm] 109/61 Pulse Oximetry 100 100 Oxygen Delivery Me thod Room Air Room Air 05/17/24 11:10 05/17/24 15:53 05/17/24 15:53 Temperature 97.5 F L 98.5 F Pulse Rate [Pulse Oximeter] 68 78 78 Respiratory Rate 16 16 16 Blood Pressure [Le ft Arm] 98/49 L 122/62 Blood Pressure [Ri ght Arm] Pulse Oximetry 100 100 Oxygen Delivery Me thod Room Air Room Air 05/17/24 15:53 05/17/24 19:30 05/17/24 19:48 Temperature 101 F H 99.3 F Pulse Rate [Pulse Oximeter] 75 Respiratory Rate 16 16 Blood Pressure [Le ft Arm] 120/65 Blood Pressure [Ri ght Arm] Pulse Oximetry 100 100 Oxygen Delivery Nh thod Room Air Room Air 05/17/24 20:45 05/17/24 22:04 05/17/24 23:00 Temperature 98.4 F 98.7 F Pulse Rate [Pulse Oximeter] 75 Respiratory Rate 14 Blood Pressure [Le ft Arm] Blood Pressure [Ri ght Arm] 122/65 Pulse Oximetry 100 Oxygen Delivery Nh thod Room Air Room Air 05/18/24 03:00 Temperature 98.3 F Pulse Rate [Pulse Oximeter] 70 Respiratory Rate 16 Blood Pressure [Le ft Arm] Blood Pressure [Ri ght Arm] 114/74 Pulse Oximetry 100 Oxygen Delivery Nh thod Room Air Labs Labs: Laboratory Results - last 24 hr 05/17/24 05/18/24 07:10 06:30 WBC 7.66 6.21 RBC 3.19 L 3.49 L Hgb 9.3 L 10.2 L Hct 29.6 L 32.1 L MCV 93 92 MCH 29 29 MCHC 31 L 32 Plt Count 174 184 VBG pH 7.29 L VBG pCO2 51 H VBG pO2 < 30.1 VBG HCO3 25 Sodium 131 L 134 L Potassium 4.5 3.8 Chloride 101 106 Carbon Dioxide 25 25 Anion Gap 5 L 3 L BUN 35 H 20 Creatinine 1.6 H 1.2 Estimated Creat Clear 27.47 37.25 Estimated GFR 33 47 Glucose 84 99 Lactate 0.5 Calcium 7.8 L 7.9 L Phosphorus 3.4 Magnesium 2.0 C-Reactive Protein 19.9 H
[2024-05-18 09:00] VITALS: BP 110/69; PULSE 83; RESP 18; TEMP 37; O2SAT 98
[2024-05-18] MEDS: cefTRIAXone 1 GM in 0.9 % SODIUM CHLORIDE Mini-bag 100 ML IVPB (09:20)
[2024-05-18] MEDS: OMEPRAZOLE 20 MG CAPSULE DR 40 MG PO (09:20)
[2024-05-18] MEDS: DULOXETINE HCL 20 MG CAPSULE DR PO (09:21)
--- NOTE | 2024-05-18 12:45 | PM.DS1 ---
DS: Providers Provider Date Seen: 05/18/24 Date of admission: 05/16/24 22:10 Primary care physician: Rosibel Walsh MD Admitting Clinician: Tae Pimentel MD Attending Physician on discharge: Daina Garcia [facility], [facility] [place] Hospitalist Date of Discharge: 05/18/24 DS: Diagnosis Discharge Diagnosis (1) Urinary tract infection: Status: Acute Problem details: Non-specific symptom onset 05/13/23. Initially Dx and started on oral cephalexin 05/15/2024 from clinic, but symptoms worsened regardless. On presentation to ED on 05/16, hypotensive, tachypneic, fever, UA still grossly positive, NIKOLAI. Urine culture from [facility] 05/15 growing > 100,000 E coli pansensitive. Blood culture negative. Patient received IV ceftriaxone (repeat UC 05/17 shows no growth) during hospital course, transitioned back to oral cephalexin at time of discharge. (2) Sepsis: Status: Resolved Problem details: RESOLVED -05/16/2024: Encephalopathic prior to arrival in ED, T 101.3 ? F, RR 22, BP 70 mmHg, UTI, Cr up to 1.7 (baseline 1.2). BC negative. Repeat UC negative. Mental status back to baseline morning of discharge. (3) Hyponatremia: Status: Acute Problem details: Sodium 129 on admission. Possibly from spironolactone, held on admission, resumed following discharge with follow up with PCP. Sodium 134 on day of discharge. (4) Acute kidney injury superimposed on chronic kidney disease: Status: Acute Problem details: Cr 1.7 on admission, baseline 1.2-1.8. Improved to 1.2 on day of discharge following gentle IV hydration. (5) Acute hypotension: Status: Acute Problem details: In setting of sepsis, UTI. Atenolol was held on admission, to be resumed on discharge. Pressures stable, SBP 110-120s. DS: Summary Hospital Course Hospital Course: 78 year old female was admitted to the medical floor for sepsis management in setting of acute UTI. Course of care and details as noted above. Remainder of chronic medical comorbidities were monitored and managed with home medications. Status at Discharge Overall status at discharge: patient is back to baseline Time Spent with Patient Time attestation: Total time spent providing and/or coordinating discharge services: Time spent: Greater than 30 minutes Exam Narrative: Exam Narrative: PHYSICAL EXAM General: Pleasant, conversant, NAD Cardiovascular: RRR Pulmonary: No dyspnea Neurological: Alert, answering questions appropriately Skin: Warm, dry. Const: Vital Signs, click to edit/add: Vital Signs - 24 hr 05/17/24 15:53 05/17/24 15:53 05/17/24 15:53 Temperature 98.5 F Pulse Rate [Pulse Oximeter] 78 78 Respiratory Rate 16 16 16 Blood Pressure [Le ft Arm] 122/62 Blood Pressure [Ri ght Arm] Pulse Oximetry 100 100 Oxygen Delivery Me thod Room Air Room Air 05/17/24 19:30 05/17/24 19:48 05/17/24 20:45 Temperature 101 F H 99.3 F 98.4 F Pulse Rate [Pulse Oximeter] 75 Respiratory Rate 16 Blood Pressure [Le ft Arm] 120/65 Blood Pressure [Ri ght Arm] Pulse Oximetry 100 Oxygen Delivery Mi thod Room Air 05/17/24 22:04 05/17/24 23:00 05/18/24 03:00 Temperature 98.7 F 98.3 F Pulse Rate [Pulse Oximeter] 75 70 Respiratory Rate 14 16 Blood Pressure [Le ft Arm] Blood Pressure [Ri ght Arm] 122/65 114/74 Pulse Oximetry 100 100 Oxygen Delivery Mi thod Room Air Room Air Room Air 05/18/24 09:00 05/18/24 09:00 05/18/24 09:00 Temperature 98.6 F Pulse Rate [Pulse Oximeter] 83 Respiratory Rate 18 18 18 Blood Pressure [Le ft Arm] Blood Pressure [Ri ght Arm] 110/69 Pulse Oximetry 98 98 Oxygen Delivery Mi thod Room Air Room Air DS: Data Data Completed and Pending Labs on day of discharge: Labs from last 24 hours 05/18/24 06:30 WBC 6.21 RBC 3.49 L Hgb 10.2 L Hct 32.1 L MCV 92 MCH 29 MCHC 32 Plt Count 184 Sodium 134 L Potassium 3.8 Chloride 106 Carbon Dioxide 25 Anion Gap 3 L BUN 20 Creatinine 1.2 Estimated Creat Clear 37.25 Estimated GFR 47 Glucose 99 Calcium 7.9 L Preliminary micro results at discharge 05/16/24 17:40 Blood Culture - Preliminary Blood NO GROWTH AFTER 24 HOURS 05/16/24 17:50 Urine Culture - Preliminary Urine,Clean Catch NO GROWTH AFTER 24 HOURS Imaging Chest x-ray: Attestation: I have reviewed the pertinent imaging results. Radiologist's impression: No pneumothorax or pleural effusion. Lungs are clear. Cardiac and mediastinal contours are within normal limits. Mildly dilated gas-filled small bowel loops in the abdomen. IMPRESSION: 1. No evidence of acute cardiopulmonary disease. 2. Mildly dilated gas-filled small bowel in the visualized abdomen. Attention to this on clinical and imaging follow-up recommended as indicated. Discharge Plan Discharge Disposition: Home, Self-Care Date of Admission: 05/16/24 22:10 Attending Provider on Discharge: Daina Garcia Primary Care Provider: Rosibel Walsh Condition: Improved Anticipated Discharge Date/Time: 05/18/24 10:24 Discharge Medications: Continued albuterol sulfate 90 mcg/actuation HFA aerosol inhaler 1 - 2 puff INHALATION Q4H PRN (Reason: wheezing) guaifenesin [Mucinex] 600 mg tablet extended release 12hr 600 mg PO BID PRN trospium 20 mg tablet 20 mg PO BID cephalexin 500 mg capsule 500 mg PO BID clotrimazole-betamethasone 1-0.05 % cream 1 applic topical BID PRN spironolactone 25 mg tablet 25 mg PO DAILY atenolol 25 mg tablet 25 mg PO DAILY atorvastatin 20 mg tablet 20 mg PO HS duloxetine 20 mg capsule,delayed release(DR/EC) 20 mg PO BID esomeprazole magnesium 40 mg capsule,delayed release(DR/EC) 40 mg PO DAILY famotidine 20 mg tablet 20 mg PO HS ferrous gluconate 324 mg (38 mg iron) tablet 324 mg PO 3XW Patient Comments: 3 times weekly gabapentin 300 mg capsule 300 - 600 mg PO HS Patient Comments: nortriptyline 10 mg capsule 10 mg PO HS oxycodone-acetaminophen 5-325 mg tablet 1 tab PO TID PRN Patient Comments: Take 1 Tablet by mouth 3 times daily if needed for Pain. do not exceed 4000mg of acetaminophen in 24 hours. sumatriptan succinate 50 mg tablet 50 mg PO DIRECTED PRN Patient Comments: take 1 tablet by mouth at onset of headache. may repeat in 2 hours if needed. max dose: 200mg per 24 hours. cholecalciferol (vitamin D3) 25 mcg (1,000 unit) capsule 25 mcg PO DAILY vitamin E 268 mg (400 unit) capsule 536 mg PO DAILY Discharge Orders: Discharge Order (Routine); Ordered 05/18/24 Ordered By: Daina Garcia Patient Education: Urinary Tract Infection in Women (GEN) Additional Instructions: Finish taking your Cephalexin. Your urine culture shows this antibiotic should continue to work against your infection. Stay hydrated and ambulate often throughout the day. Activity Level: Activity as Tolerated Discharge Diet: Regular Follow Up Appointments: Rosibel Walsh MD [Primary Care Provider] - 05/19/24 3:05 pm (3-5 day post hospital follow up , cystitis, NIKOLAI, hyponatremia) Forms: [employer] Info Instructions
--- NOTE | 2024-05-18 14:09 | PC.NURSE ---
Pt up with SBA w/in room. Denies pain. Able to eat and drink without complaint. Daughter, whom she lives with at bedside, supportive and loving. Swallow pills whole with water w/out complaint. IV x2 DC'd, cath tip(s) intact. DC instructions given verbally and in writing to pt, daughter, and son-in-law. All questions answered. DC to home @ [id number]
== END 2024-05-18 11:51 | disposition home or self-care (01) | DRG 871 ==
LOC: ED 19:24 → MEDSURG 20:02
PROVIDERS: Physician Assistant; Admitting Provider Internal Medicine; Emergency Provider Emergency Medicine Emergency Medical Services; PCP Family Medicine; Visit Provider Internal Medicine
DX: A41.9 Sepsis, unspecified organism (principal); G93.41 Metabolic encephalopathy; N39.0 Urinary tract infection, site not specified; N17.9 Acute kidney failure, unspecified; E87.1 Hypo-osmolality and hyponatremia; B96.20 Unspecified Escherichia coli [E. coli] as the cause of diseases classified elsewhere; I12.9 Hypertensive chronic kidney disease with stage 1 through stage 4 chronic kidney disease, or unspecified chronic kidney disease; N18.31 Chronic kidney disease, stage 3a; E78.5 Hyperlipidemia, unspecified
CPT/HCPCS: 36415; 71045; 80048; 81001; 82803; 83605; 83735; 84100; 84484; 85025; 85027; 86140; 87040; 87086; 87631; 93005; 99285; A9270; J0696; J7030

== ENCOUNTER 2024-05-30 13:28 | Emergency (ER) | payer MEDICARE, BC, SELFPAY ==
[2024-05-30] VITALS (24 sets, daily range): BP systolic 145–195; BP diastolic 101–113; PULSE 88–107; RESP 18; TEMP 37.1; O2SAT 91–100; BMI 21.3
--- NOTE | 2024-05-30 13:30 | ED.GENADULT ---
HPI - General Adult General Date Seen: 05/30/24 Chief complaint: Shortness of Breath/Dyspnea Stated complaint: SOB Time Seen by Provider: 05/30/24 13:29 History of Present Illness HPI narrative: 78-year-old female with a past medical history of hypertension, chronic kidney disease, migraine headaches osteoarthritis, hyperlipidemia, spinal stenosis, sensorineural hearing loss peripheral neuropathy, previous right knee replacement, cataract surgery, blepharoplasty, Was seen in the ED 05/16/2024 with fever and sepsis. Low blood pressure and altered mental status. Had been Diagnosed with UTI in urgent care. She had hypotension upon presentation to the ER. Hospitalized until 05/18. Urine culture grew pansensitive E coli. Treated with Rocephin in the hospital and discharged home on cephalexin. She has chronic renal insufficiency. Baseline creatinine 1.2-1.8. Was 1.7 on admission improved 1.21 discharge. She has also had some trouble with shortness of breath ongoing since a hospitalization last September. She describes what sounds like a fairly extensive workup through her primary care provider at the [facility]. She has been referred to Cardiology who said that ?all the tests for her heart looked good? and a personal lines account executive who said ?why are you here? ? meaning that lungs were not the reason for her shortness of breath. Her shortness of breath had been stabilizing or maybe getting better until she was in the hospital a couple of weeks ago. Since then she has had more shortness of breath. In particular she notes dyspnea on exertion for the past couple of weeks. She is not short of breath while at rest. No orthopnea. No swelling in her legs. No palpitations. No cough. No fever. No known exposure to COVID Also since around the time she got out of the hospital she has been experiencing epigastric abdominal pain. This has been continuous. Is not related to food her fasting. No lower pain. No nausea. Bowel movements normal. She saw her primary care provider ([facility]) the 2 days after discharge and had labs. Lipase was mildly abnormal at 133. She was told she might have pancreatitis. Follow-up CT scan showed no inflammation of her pancreas or other abnormalities in the abdomen/pelvis. She has been referred for an outpatient MRCP which is scheduled to be done next week in the [facility]. CT ABD PELVIS 05/21/24 [facility] FINDINGS: Lower chest: Coronary artery atherosclerosis is present. Liver: Unremarkable. Normal in size and attenuation. No suspicious masses. Gallbladder and bile ducts: Unremarkable. No stones or inflammation. No biliary dilatation. Pancreas: Unremarkable. No mass or inflammation. Spleen: Unremarkable. Normal in size. No masses. Adrenal glands: Unremarkable. No nodules. Kidneys: Redemonstration of multiple relatively small bilateral parapelvic simple cysts and left renal scarring. No hydronephrosis. Otherwise unremarkable. GI tract: Moderate fluid-filled distention of the stomach. GI tract otherwise unremarkable. Vasculature: Abdominal aorta is normal in caliber. Stenosis at the origin of the celiac artery. Mesenteric arteries otherwise patent. Lymph nodes: No lymphadenopathy. Peritoneum/Abdominal Wall: Unremarkable. No sign of mass or infiltration. No free air or significant free fluid. Pelvis: Unremarkable. Bones: Unremarkable for age. ? IMPRESSION: Moderate fluid-filled distention of the stomach. No other acute or significant abnormalities. No other findings to explain abdomen pain or shortness of breath. LABS 05/21 WBC 7.7, HEMOGLOBIN 10.5 (BASELINE APPEARS TO BE 11.0-12.3) PLATELET 328 UA-SG 1.015, trace protein, negative glucose, negative ketones, negative nitrite, negative leukocyte esterase Sodium 139, potassium 3.9, chloride 103, bicarb 27, BUN 9, creatinine 1.22 ALT 19, AST 31, bilirubin 0.3 Lipase 133 She has been waiting for symptoms to get better. She thought she probably should come in yesterday but she wanted to wait 1 more day. She she is not having any improvement in her upper abdominal pain more in her breathing. ? Related Data Home Medications ?Medication ?Instructions ?Recorded ?Confirmed atenolol 25 mg tablet 25 mg PO DAILY 12/20/22 05/17/24 atorvastatin 20 mg tablet 20 mg PO HS 12/20/22 05/17/24 cholecalciferol (vitamin D3) 25 25 mcg PO DAILY 12/20/22 05/17/24 mcg (1,000 unit) capsule duloxetine 20 mg capsule,delayed 20 mg PO BID 12/20/22 05/17/24 release esomeprazole magnesium 40 mg 40 mg PO DAILY 12/20/22 05/17/24 capsule,delayed release famotidine 20 mg tablet 20 mg PO HS 12/20/22 05/17/24 ferrous gluconate 324 mg (38 mg 324 mg PO 3XW 12/20/22 05/17/24 iron) tablet gabapentin 300 mg capsule 300 - 600 mg PO HS 12/20/22 05/17/24 nortriptyline 10 mg capsule 10 mg PO HS 12/20/22 05/17/24 oxycodone-acetaminophen 5 mg-325 1 tab PO TID PRN 12/20/22 05/17/24 mg tablet sumatriptan succinate 50 mg tablet 50 mg PO DIRECTED PRN 12/20/22 05/17/24 vitamin E 268 mg (400 unit) capsule 536 mg PO DAILY 12/20/22 05/17/24 albuterol sulfate 90 mcg/actuation 1 - 2 puff inhalation Q4H PRN 10/04/23 05/17/24 aerosol inhaler wheezing guaifenesin 600 mg tablet, 600 mg PO BID PRN 10/04/23 05/17/24 extended release 12 hr (Mucinex) trospium 20 mg tablet 20 mg PO BID 10/04/23 05/17/24 cephalexin 500 mg capsule 500 mg PO BID 05/16/24 05/16/24 clotrimazole-betamethasone 1 1 applic topical BID PRN 05/17/24 05/17/24 %-0.05 % topical cream spironolactone 25 mg tablet 25 mg PO DAILY 05/17/24 05/17/24 Allergies Allergy/AdvReac Type Severity Reaction Status Date / Time vancomycin Allergy Severe Angioedema Verified 01/28/24 08:28 amoxicillin [From Augmentin] Allergy Mild Rash Verified 01/28/24 08:28 clavulanic acid Allergy Mild Rash Verified 01/28/24 08:28 [From Augmentin] [facility] Medical History (Updated 05/30/24 @ 17:19 by Kevin Balderas MD) Chronic kidney disease, stage 3a ?N18.31 - Chronic kidney disease, stage 3a (ICD-10) Osteoarthritis ?M19.90 - Unspecified osteoarthritis, unspecified site (ICD-10) Cat bite of ankle ?S91.059A - Open bite, unspecified ankle, initial encounter (ICD-10) ?W55.01XA - Bitten by cat, initial encounter (ICD-10) Cellulitis of right ankle ?L03.115 - Cellulitis of right lower limb (ICD-10) Adverse drug reaction ?T50.905A - Adverse effect of unspecified drugs, medicaments and biological substances, initial encounter (ICD-10) FH: total knee replacement ?Z82.69 - Family history of other diseases of the musculoskeletal system and connective tissue (ICD-10) Peripheral motor neuropathy ?G62.89 - Other specified polyneuropathies (ICD-10) Sensorineural hearing loss ?H90.5 - Unspecified sensorineural hearing loss (ICD-10) Migraines ?G43.909 - Migraine, unspecified, not intractable, without status migrainosus (ICD-10) Dry mouth ?R68.2 - Dry mouth, unspecified (ICD-10) Urge incontinence ?N39.41 - Urge incontinence (ICD-10) Dermatochalasia ?H02.839 - Dermatochalasis of unspecified eye, unspecified eyelid (ICD-10) Pterygium eye ?H11.009 - Unspecified pterygium of unspecified eye (ICD-10) Adjustment disorder ?F43.20 - Adjustment disorder, unspecified (ICD-10) HTN (hypertension) ?I10 - Essential (primary) hypertension (ICD-10) Pain medication agreement ?Z02.89 - Encounter for other administrative examinations (ICD-10) Lumbar facet arthropathy ?M47.816 - Spondylosis without myelopathy or radiculopathy, lumbar region (ICD-10) Hip osteoarthritis ?M16.9 - Osteoarthritis of hip, unspecified (ICD-10) Injury of long thoracic nerve ?S24.8XXA - Injury of other specified nerves of thorax, initial encounter (ICD-10) Hyperlipidemia, unspecified ?E78.5 - Hyperlipidemia, unspecified (ICD-10) Neck pain ?M54.2 - Cervicalgia (ICD-10) Spinal stenosis, lumbar region without neurogenic claudication ?M48.061 - Spinal stenosis, lumbar region without neurogenic claudication (ICD-10) Surgical History (Updated 05/16/24 @ 20:14 by Tae Pimentel MD) History of total right knee replacement ?Z96.651 - Presence of right artificial knee joint (ICD-10) S/P YAG capsulotomy ?Z98.890 - Other specified postprocedural states (ICD-10) Hx of tonsillectomy ?Z90.89 - Acquired absence of other organs (ICD-10) Cataract extraction status ?Z98.49 - Cataract extraction status, unspecified eye (ICD-10) History of carpal tunnel release ?Z98.890 - Other specified postprocedural states (ICD-10) H/O blepharoplasty ?Z98.890 - Other specified postprocedural states (ICD-10) Family History (Updated 05/16/24 @ 20:15 by Tae Pimentel MD) Mother Arthritis Gout Social History Narrative: She lives in a home in [place] with her 2 daughters and her son in law. She reports this is going well for her. Her daughter Esther is healthcare power of template layout worker. Code status previously was full. on 05/16/2024 patient changes her CODE status to DNR DNI. She does not smoke. She does not drink alcohol. What is your current living situation?: I presently have a place to live Problems where you live: no known problems Problems where you live details: NA In the past 12 months, utilities in danger of being shut off: no In past 12 months, lack of transportation kept you from medical appts, meetings, work, or getting things needed for daily living: no In the past 12 mos, have been you worried that your food would run out before you had money to buy more?: never true In the past 12 mos, the food you bought just didn't last and you didn't have money to buy more?: never true Highest level of school completed/degree received: 12th grade, no diploma Smoking Status: Never smoker Do you use any of these nicotine containing products: None Second hand tobacco smoke exposure: No How often do you have a drink containing alcohol: monthly or less Alcohol type: wine Alcohol type details: wine, 1/2 glass. rare alcohol intake How often do you have six or more drinks on one occasion: Never AUDIT-C Alcohol total score: 1 Non-prescribed substance use: denies use Caffeine: Yes (coke and tea) How often does anyone, including family, friends and others, physically hurt you: never How often does anyone, including family, friends and others, insult or talk down to you: never How often does anyone, including family, friends and others, threaten you with harm: never How often does anyone, including family, friends and others, scream or curse at you: never service: No Exam Narrative: Exam Narrative: Constitutional: Appears well-developed and well-nourished. Alert. Conversant. She is polite. She looks a bit worn down but not overly ?toxic?. HENT: Head: Atraumatic. Nose: Nose normal. Mouth/Throat: Oral mucosa is clear but dry-not desiccated or cracked. no trismus. Pharynx normal. Tonsils symmetric. No tonsillar enlargement, erythema, or exudate. Eyes: Conjunctivae normal. EOM normal. Pupils equal, round, and reactive to light. No scleral icterus. Neck: Normal range of motion. Neck supple. No tracheal deviation present. Cardiovascular: Tachycardic, regular rhythm. Rate 105 on the monitor. No gallop. No friction rub. No murmur heard. Symmetric radial artery pulses Pulmonary/Chest: Effort normal. No stridor. No respiratory distress. No wheezes. No rales. No rhonchi . No tenderness. Abdominal: Soft. Bowel sounds normal. No distension. No mass. Epigastric tenderness. No rebound. No guarding. No right upper quadrant or left upper quadrant tenderness. No lower tenderness. No CVA tenderness. No Castro Infante sign Musculoskeletal: RUE: Normal range of motion. No tenderness. No deformity LUE: Normal range of motion. No tenderness. No deformity RLE: Normal range of motion. No edema. No tenderness. No deformity LLE: Normal range of motion. No edema. No tenderness. No deformity Neurological: Alert and oriented to person, place, and time. Normal strength. CN II-VII intact. No sensory deficit. GCS eye subscore is 4. GCS verbal subscore is 5. GCS motor subscore is 6. Normal coordination Skin: Skin is warm and dry. No rash noted. No pallor. Normal capillary refill. Psychiatric: Normal mood. Normal affect. Const: Vital Signs, click to edit/add: Vital Signs - 24 hr 05/30/24 13:36 05/30/24 13:51 05/30/24 14:00 Temperature 98.7 F Pulse Rate 107 H 104 H Pulse Rate [Pulse Oximeter] 107 H Respiratory Rate 18 18 Blood Pressure Blood Pressure [Le ft Upper Arm] 168/110 H Pulse Oximetry 99 94 99 Oxygen Delivery Me thod Room Air 05/30/24 14:01 05/30/24 14:15 05/30/24 14:32 Temperature Pulse Rate 104 H 101 H 94 Pulse Rate [Pulse Oximeter] Respiratory Rate Blood Pressure 145/102 H 193/103 H Blood Pressure [Le ft Upper Arm] Pulse Oximetry 95 98 94 Oxygen Delivery Me thod 05/30/24 14:33 05/30/24 14:36 05/30/24 14:45 Temperature Pulse Rate 94 95 92 Pulse Rate [Pulse Oximeter] Respiratory Rate Blood Pressure 175/101 H Blood Pressure [Le ft Upper Arm] Pulse Oximetry 96 96 99 Oxygen Delivery Me thod 05/30/24 15:00 05/30/24 15:02 05/30/24 15:15 Temperature Pulse Rate 92 93 93 Pulse Rate [Pulse Oximeter] Respiratory Rate Blood Pressure 180/106 H Blood Pressure [Le ft Upper Arm] Pulse Oximetry 93 95 100 Oxygen Delivery Me thod 05/30/24 15:30 05/30/24 15:32 05/30/24 15:46 Temperature Pulse Rate 98 95 89 Pulse Rate [Pulse Oximeter] Respiratory Rate Blood Pressure 195/111 H Blood Pressure [Le ft Upper Arm] Pulse Oximetry 96 97 95 Oxygen Delivery Me thod 05/30/24 16:00 05/30/24 16:02 05/30/24 16:15 Temperature Pulse Rate 88 89 88 Pulse Rate [Pulse Oximeter] Respiratory Rate Blood Pressure 174/113 H Blood Pressure [Le ft Upper Arm] Pulse Oximetry 91 95 Oxygen Delivery Me thod 05/30/24 16:30 05/30/24 16:32 05/30/24 16:45 Temperature Pulse Rate 91 98 Pulse Rate [Pulse Oximeter] Respiratory Rate Blood Pressure 156/103 H Blood Pressure [Le ft Upper Arm] Pulse Oximetry 95 96 Oxygen Delivery Me thod 05/30/24 17:00 05/30/24 17:06 05/30/24 17:15 Temperature Pulse Rate 89 90 93 Pulse Rate [Pulse Oximeter] Respiratory Rate Blood Pressure Blood Pressure [Le ft Upper Arm] Pulse Oximetry 99 96 96 Oxygen Delivery Me thod Course Course ED Course: Ambulation trial-patient able to ambulate around the nurses station. She did develop some symptomatic dyspnea. No hypoxia. Sats from 97% at rest on at 93% with exertion. Vital Signs Vital signs: Initial Vital Signs Temperature 98.7 F 05/30/24 13:36 Temperature Source Temporal Artery Scan 05/30/24 13:36 Pulse Rate 107 H 05/30/24 13:36 Pulse Rhythm Regular 05/30/24 13:36 Respiratory Rate 18 05/30/24 13:36 Blood Pressure 168/110 H 05/30/24 13:36 Blood Pressure Mean 129 H 05/30/24 13:36 Blood Pressure Position Supine 05/30/24 13:36 Pulse Oximetry 99 05/30/24 13:36 Oxygen Delivery Method Room Air 05/30/24 13:36 Vital Signs Temperature 98.7 F 05/30/24 13:36 Pulse Rate 107 H 05/30/24 13:36 Respiratory Rate 18 05/30/24 13:36 Blood Pressure 168/110 H 05/30/24 13:36 Pulse Oximetry 99 05/30/24 13:36 Oxygen Delivery Method Room Air 05/30/24 13:36 Temperature 98.7 F 05/30/24 13:36 Pulse Rate 93 05/30/24 17:15 Respiratory Rate 18 05/30/24 13:51 Blood Pressure 156/103 H 05/30/24 16:32 Pulse Oximetry 96 05/30/24 17:15 Oxygen Delivery Method Room Air 05/30/24 13:36 Medications Administered Medications: Discontinued Medications Generic Name Dose Route Start Last Admin Trade Name Georgiana PRN Reason Stop Dose Admin Acetaminophen 1,000 mg 05/30/24 15:34 05/30/24 15:42 Acetaminophen 500 Mg Tablet PO 05/30/24 15:35 1,000 mg ONCE ONE Administration Sodium Chloride 1,000 mls @ 1,000 mls/hr 05/30/24 14:00 05/30/24 15:42 0.9 % Sodium Chloride 1000 Ml IV 05/30/24 14:59 Infused .Q1H RISSA Infusion Medical Decision Making MDM Narrative Medical decision making narrative: Very pleasant 78-year-old female presenting to the ER today by private car accompanied with her family. She has 2 separate concerns. One she short of breath. To she is having epigastric and upper abdominal pain. Her shortness of breath has been present for the past 7 or 8 months and had been getting better but now is worse again since her recent hospitalization 2 weeks ago. Differential is broad. No recent cough or fever to suggest infectious process such as pneumonia or COVID. Chest imaging with CT shows no evidence for focal infiltrate. Coronavirus and influenza PCR is negative. With recent hospitalization and presenting sinus tachycardia, consider possible PE. She has no symptoms of lower extremity swelling or DVT. Oxygen saturations are normal. She is felt to be moderate to high risk for PE and therefore D-dimer testing is not appropriate. CT PA is obtained and is negative for PE. CT scan also negative for other acute pathology in her chest such as pulmonary edema, pleural effusion, pneumothorax. Consider cardiac causes of dyspnea. EKG shows sinus tachycardia, low-voltage QRS, but no definite ischemia. She is not having any chest pain. Troponin is undetectable. With symptoms ongoing for weeks to months, history not really suggestive for active unstable angina or ACS. She reports that she has already had an extensive cardiac workup with without any clear explanation for her dyspnea. No pulmonary edema noted on chest CT. N terminal proBNP level is 259, making CHF unlikely. She is mildly anemic with a hemoglobin of 11.8 but recent hemoglobins have been in that range or lower. No signs of active anemia or worsening anemia causing worsening dyspnea. Discussed with the patient and her daughter. At this point cause for dyspnea is unclear. She has not had an echocardiogram available since she had an echo in December 2022 which showed a normal EF and no significant abnormality. With progressing dyspnea and signs of new low voltage QRS on her EKG I do think she needs further cardiac workup and probably repeat echo. Discussed with our hospitalist, Dr. Abel. At this point she does not think the patient would meet insurance criteria for admission, even a knob stay with no objective findings to explain her dyspnea. Therefore we will half to discharge the patient home. She will follow-up with her primary care provider the [facility] and arrange outpatient echo. If she has worsening dyspnea or she develops any other cardiopulmonary symptoms such as chest pain or palpitations she will return to the ER immediately. Also endorsing upper abdominal pain. She had a recently abnormal lipase level done through the [facility] (lipase was 133 which is abnormal but not greater than 3 times the upper limit of normal). She also had a recent abdominal CT that did not show any radiographic findings of pancreatitis. She has ongoing epigastric pain. Lipase today is actually normal. LFTs normal. Repeat CT scan today shows no signs of active inflammation around the pancreas or other abnormality in the abdomen/pelvis to explain her pain. She will follow-up with her primary care provider for further evaluation. She is actually scheduled for an endoscopy in a couple of weeks. No evidence for any perforated ulcer or active GI bleeding. She has mild anemia which is stable. Lab Data Labs: Lab Results 05/30/24 Range/Units 14:10 WBC 4.92 (4.50-11.00) K/uL RBC 4.07 (4.00-5.20) m/uL Hgb 11.8 L (12.0-16.0) gm/dL Hct 37.4 (33.0-51.0) % MCV 92 (80-100) fL MCH 29 (26-34) pg MCHC 32 (32-36) gm/dL RDW Coeff of Beverly 13.1 (11.5-15.5) % Plt Count 431 (140-440) K/uL Neut % (Auto) 70.3 (42.0-72.0) % Lymph % (Auto) 23.2 (20-44) % Douglas % (Auto) 4.9 (0.0-11.0) % Eos % (Auto) 0.8 (0.0-7.0) % Baso % (Auto) 0.8 (0.0-3.0) % Neut # (Auto) 3.46 (1.7-7.0) K/uL Lymph # (Auto) 1.14 (0.90-2.90) K/uL Douglas # (Auto) 0.20 (0.00-0.90) K/UL Eos # (Auto) 0.04 (0.00-0.50) K/uL Baso # (Auto) 0.04 (0.00-0.30) K/uL Abs Immat Gran (auto) 0.00 (0.00-0.30) K/uL Imm/Tot Granulo (auto) 0.0 % Sodium 137 (135-149) mmol/L Potassium 4.2 (3.6-5.1) mmol/L Chloride 102 (96-114) mmol/L Carbon Dioxide 30 (20-32) mmol/L Anion Gap 5 L (7-15) mEq/L BUN 17 (7-30) mg/dL Creatinine 1.3 (0.5-1.5) mg/dL Estimated Creat Clear 33.13 Estimated GFR 43 ml/min Glucose 111 (60-115) mg/dL Lactate 0.9 (0.5-1.9) mmol/L Calcium 9.4 (8.4-10.6) mg/dL Total Bilirubin 1.0 (0.1-1.5) mg/dL AST 31 (12-35) U/L ALT 15 (4-35) U/L Alkaline Phosphatase 58 (40-150) U/L Troponin I < 0.01 L (0.01-0.04) ng/mL NT-Pro-B Natriuret Pep 259 pg/mL Total Protein 7.1 (6.0-8.3) g/dL Albumin 4.2 (3.3-5.0) g/dL Lipase 207 (23-300) U/L SARS-CoV-2 (PCR) Negative SARS-CoV-2 (Negative) Influenza Type A (PCR) Negative PCR FLU A (Negative) Influenza Type B (PCR) Negative PCR FLU B (Negative) RSV (PCR) Negative PCR RSV (Negative) Imaging Data CT scan - chest: Attestation: I have reviewed the pertinent imaging results. Radiologist's impression: Impression: No CT evidence of an acute process involving the thorax; specifically, no pulmonary embolism. CT scan - abdomen: Attestation: I have reviewed the pertinent imaging results. Radiologist's impression: Impression: 1. No CT evidence of an acute process involving the abdomen or pelvis. 2. Incidental findings as detailed above. Discharge Plan Discharge Clinical Impression: Dyspnea on exertion, Abdominal pain, acute, epigastric Patient Disposition: Home, Self-Care Condition: Stable Instructions: Abdominal Pain (ED), Dyspnea (ED) Additional Instructions: As we discussed, please return to the ER right away if you have any trouble especially worsening trouble breathing, or if you develop any chest pain or palpitations, or if you have worsening abdominal pain, bloody vomit or stool, fever, weakness, or any problems. Please follow-up with your doctors at the [facility]. Call Saturday to arrange a follow-up appointment. Ask your doctor to arrange an outpatient echocardiogram. Prescriptions: No Action albuterol sulfate 90 mcg/actuation HFA aerosol inhaler 1 - 2 puff INHALATION Q4H PRN (Reason: wheezing) guaifenesin [Mucinex] 600 mg tablet extended release 12hr 600 mg PO BID PRN trospium 20 mg tablet 20 mg PO BID cephalexin 500 mg capsule 500 mg PO BID clotrimazole-betamethasone 1-0.05 % cream 1 applic topical BID PRN spironolactone 25 mg tablet 25 mg PO DAILY atenolol 25 mg tablet 25 mg PO DAILY atorvastatin 20 mg tablet 20 mg PO HS duloxetine 20 mg capsule,delayed release(DR/EC) 20 mg PO BID esomeprazole magnesium 40 mg capsule,delayed release(DR/EC) 40 mg PO DAILY famotidine 20 mg tablet 20 mg PO HS ferrous gluconate 324 mg (38 mg iron) tablet 324 mg PO 3XW Patient Comments: 3 times weekly gabapentin 300 mg capsule 300 - 600 mg PO HS Patient Comments: nortriptyline 10 mg capsule 10 mg PO HS oxycodone-acetaminophen 5-325 mg tablet 1 tab PO TID PRN Patient Comments: Take 1 Tablet by mouth 3 times daily if needed for Pain. do not exceed 4000mg of acetaminophen in 24 hours. sumatriptan succinate 50 mg tablet 50 mg PO DIRECTED PRN Patient Comments: take 1 tablet by mouth at onset of headache. may repeat in 2 hours if needed. max dose: 200mg per 24 hours. cholecalciferol (vitamin D3) 25 mcg (1,000 unit) capsule 25 mcg PO DAILY vitamin E 268 mg (400 unit) capsule 536 mg PO DAILY Follow Up/Referrals: Rosibel Walsh MD [Primary Care Provider] - Stand Alone Forms: [facility] Info Instructions
--- NOTE | 2024-05-30 13:58 | CRLHL7_ITS ---
For Patients: As a result of the Century Cures Act, medical imaging exams and procedure reports are released immediately into your electronic medical record. You may view this report before your referring provider. If you have questions, please contact your health care provider. Indication: epigastric abd pain, abnormal lipase Technique: CT abdomen/pelvis with IV contrast, 95 mL Isovue 370 Comparison: None Findings: Lower thorax: Please see dedicated CT thorax for description of thoracic findings. Abdomen/pelvis: The liver, gallbladder and biliary system, spleen, pancreas, and bilateral adrenal glands are unremarkable. No pancreatic masses/lesions, peripancreatic inflammatory changes, pancreatic ductal dilatation, or peripancreatic fluid collections. The kidneys perfused in a normal fashion. Cortical thinning of the bilateral kidneys, left greater than right. No suspicious enhancing renal masses or lesions. There are a few simple appearing parapelvic cysts in the left kidney. No renal calculi or hydroureteronephrosis. The bladder is unremarkable in appearance. The uterus and bilateral adnexa are unremarkable in appearance. No evidence of bowel obstruction or inflammation. No CT evidence of acute appendicitis. No free fluid or free air. No abscess. No abdominopelvic lymphadenopathy. No abdominal aortic aneurysm. [id number] calcified and noncalcified atherosclerosis of the aortoiliac system. Soft tissue/musculoskeletal: Tiny fat containing umbilical hernia. Fracture or malalignment Six lumbar vertebral bodies. No acute fracture or malalignment. Likely sequela of remote, healed fracture of the left pubic tubercle. Multilevel degenerative changes of the lumbar spine with grade 1 anterolisthesis of L4 on L5, L5 on L6, and L6 on S1. 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 No suspicious osseous lesions. Impression: 1. No CT evidence of an acute process involving the abdomen or pelvis. 2. Incidental findings as detailed above. Please note that all CT scans at this facility use dose modulation, iterative reconstruction, and/or weight-based dosing when appropriate to reduce radiation dose to as low as reasonably achievable. Dictated by Darci Packer MD @ 05/30/2024 3:34:22 PM (Electronically Signed)
--- NOTE | 2024-05-30 13:58 | CRLHL7_ITS ---
For Patients: As a result of the Century Cures Act, medical imaging exams and procedure reports are released immediately into your electronic medical record. You may view this report before your referring provider. If you have questions, please contact your health care provider. Indication: dyspnea, tachycardia, recent hospitalization Technique: CTA chest, pulmonary embolism protocol, utilizing 95 mL Isovue 370 Comparison: CT chest on April 23, 2017 Findings: No appreciable thyroid nodules. No pathologically enlarged lymph nodes throughout the thorax. The heart is normal in size. No pericardial effusion. Minimal coronary artery calcifications. The thoracic aorta and pulmonary artery are normal in caliber. No pulmonary embolism. No focal airspace consolidation, pleural effusion, or pneumothorax. No suspicious pulmonary nodules or masses. The airways are clear. No acute fracture or malalignment. Pectus excavatum. Please see dedicated same-day CT abdomen/pelvis for description of abdominopelvic findings. Impression: No CT evidence of an acute process involving the thorax; specifically, no pulmonary embolism. Please note that all CT scans at this facility use dose modulation, iterative reconstruction, and/or weight-based dosing when appropriate to reduce radiation dose to as low as reasonably achievable. Dictated by Darci Packer MD @ 05/30/2024 3:26:29 PM (Electronically Signed)
--- OUTSIDE RECORDS SUMMARY | 2024-05-30 14:02 | XMS_ITS | Clinical Summary ---
Author Organization [employer] Address [place], [place] [address] Care Team Providers Care Relay Record Clerk Name Role Phone Rosibel Walsh MD Primary Care Provide r Ulisses Carney MD Unavailable [phone] Allergies Active Allergy Reactions Criticality Noted Date [...] BEDTIME 90 Tablet 3 05/02/20 24 Active vitamin e 400 unit capsule Take [...] 024 Discontinued(*P atient states no longer taking) cephalexin (KEFLEX) 500 mg capsuleIndications :UTI (urinary tract infection), uncomplicated Take 1 Capsule (500 mg) by mouth two times daily for 7 days. 14 Capsule 05/15/20 24 024 Active Problems Problem Noted Date Diagnosed Date [...] agreement 11/12/2012 Overview: Prescriber: Dr. Tanner Melchor, [facility] Rosibel Walsh MD Ok to fill at same amount/dose/frequency in my absence. Controlled substance agreement: 11/12/2012 Last UDS on 12/21/20 STIFF LEG DERRICK OPERATOR query 04/13/24 Lumbar facet arthropathy 10/01/2012 Hip [...] Encounters Date Type Department Care Team Description 05/29/2024 Travel 05/25/2024 Orders Only [facility] [address] [place] [address] Rosibel Walsh MD 1 scan: (1-Ord) NFLD-EKG-05/21/24 05/22/2024 Telephone [facility] [address] [place] [address] Rosibel Walsh MD Abnormal Lab Results 05/21/2024 8:30 AM CDT Ancillary Procedure [facility] [address] [place] [address] [address] 05/21/2024 7:00 AM CDT Office Visit [facility] [address] [place] [address] [address] Rosibel Walsh MD Shortness Of Breath; Pain (Pain Between breastbone, worsening of SOB) 05/20/2024 Travel 05/19/2024 3:05 PM CDT Office Visit [facility] [place] [address] [address] Rosibel Walsh MD Hospital F/U (Seen UC on 05/15, started on antibiotics for UA./Went to ER by ambulance on 05/16/Admitted to the hospital and was discharged on 05/18) 05/18/2024 Travel 05/16/2024 Orders Only [facility] Scanner 1 scan: (1-Ord) [place], CHEST 1V PORTABLE, 05/16/2024 05/15/2024 11:15 AM CDT Office Visit [address] [address] Riri Parikh, CONCRETE VIBRATOR OPERATOR Follow Up (Anemia of unknown etiology/) 05/15/2024 8:45 AM CDT Office Visit [facility] [address] [address] Sowmya Byrnes, DO Fatigue 05/15/2024 Travel 05/14/2024 Travel 05/12/2024 10:00 AM CDT Orders Only [facility] [place] [address] [address] [address] Lab, [place] [facility] 05/12/2024 Travel 05/10/2024 Travel 05/07/2024 Travel 04/30/2024 Refill [facility] [place] [address] [address] Rosibel Walsh MD Refill Request (Famotidine) 04/17/2024 11:45 AM CDT Office Visit [facility] [address] [place] [address] Rosibel Walsh MD Follow Up (Cardiology appointment) 04/17/2024 Travel 04/15/2024 3:30 PM CDT Office Visit [facility] [address] [facility] [address] Terence Miles MD Consult 04/15/2024 Travel 04/12/2024 Travel 04/10/2024 Travel from Last 3 Months Immunizations Name Administration Dates Next Due Amb Influenza, Inact (High-d ose) (Flu Clinic Only) 07/23/2016 Amb Influenza, Inactivated A IIV4 (Age 65+ Years) Preserv Free 07/20/2020 COVID-19 Vaccine Spikevax (M oderna 50mcg/0.5mL) 12YO+ 0121-5571 Formula PF 09/09/2023 COVID-19 vaccine (Moderna 100mcg/0.5mL) PF, MDV 01/17/2021,12/18/2020 COVID-19 vaccine (EasyCopay-Bio NTech 30mcg/0.3mL) 12YO+ BIVALENT PF, MDV 06/26/2023,07/25/2022 [...] Sex Assigned at Female 09/04/2020 6:49 PM SMELTER OPERATOR Gender Identity Not on file Sexual Orientation Straight 09/04/2020 6: 49 PM SMELTER OPERATOR Obstetrics History Last Filed Vital Signs Vital [...] Description 06/02/2024 3:30 PM CDT Office Visit [facility] [address] [place] [address] Rosibel Walsh MD [address] [place] [address] 06/04/2024 7:00 AM CDT Appointment [facility] [address] [place] [address] Health Maintenance Due Date Last Done Comments [...] Completed 10/02/2021, Medical Devices Implanted Type Area Foot Roentgenologist Device Identifier Shelf Expiration Date Model / Serial / Lot Lens Iol Sn6at9 18.5 Dpt - [id number] Implanted:Qty: 1 on 08/20/2016 by Fabricio Thorne MD at [facility] Right: [employer] 09/03/2016 SN6AT9# / [id number] / Iol K[place]ilvak +16 Acrysof Iq Sn60wf - [id number] Implanted:Qty: 1 on 09/03/2016 by Fabricio Thorne MD at [facility] Left: [employer] 07/04/2020 [id number]-72. 0# / [id number] / Cmnt Bone Simplex P 1pk - [id number] Implanted:Qty: 2 on 09/29/2019 by Tra Schrader MD at [facility] Right: Knee [employer] 10/03/2021 6191-1-001 # / / [id number] Fem Rt Sz3 Triathlon Cruc Ret Co Cr - [id number] Implanted:Qty: 1 on 09/29/2019 by Tra Schrader MD at [facility] Right: Knee [employer] 06/19/2024 5510-F-302 # / / [id number] Baseplate Tib Sz4 Triathlon Pe - [id number] Implanted:Qty: 1 on 09/29/2019 by Tra Schrader MD at [facility] Right: Knee [employer] 05/21/2024 5521-B-400 # / / [id number] Patella [id number] Triathlon Asymmetric X3 - [id number] Implanted:Qty: 1 on 09/29/2019 by Tra Schrader MD at [facility] Right: Knee [employer] 06/07/2024 5551-G-320 # / / [id number] Triathlon Tibial Bearing Insert -Cs Implanted:Qty: 1 on 09/29/2019 by Tra Schrader MD at [facility] Right: Knee [employer] 06/12/2024 5531-G-[id number] -E / / [id number] Procedures Procedure Name Priority Date/Time Associated Diagnosis Comments EKG 12 LEAD Routine 05/25/2024 12:48 PM CDT Abdominal pain, epigastric AZ READING EKG - NO CHARGE, COMP ONLY Routine 05/25/2024 12:46 PM CDT Abdominal pain, epigastric CT ABDOMEN PELVIS W STAT 05/21/2024 8 :39 AM CDT Abdominal pain, epigastric SOB (shortness of breath) URINE CULTURE Routine 05/21/2024 8:04 AM CDT Complicated UTI (urinary tract infection) UA W/ SEDIMENT EXAM REFLEXED PER CRITERIA [...] 2 SITES AXIAL Routine 10/02/2021 11:35 AM SMELTER OPERATOR Menopause ANTI HCV Routine 07/08/2020 9:56 AM CDT Encounter for hepatitis C screening test for low risk patient from Last 3 Months or Most Recently Relevant to Health Maintenance Results * EKG 12 LEAD (05/25/2024 12:48 PM CDT) Rosibel Walsh MD EKG ORD * AZ READING EKG - NO CHARGE, COMP ONLY (05/25/2024 12:46 PM CDT) Rosibel Walsh MD PB - PROVIDER READINGS * CT ABDOMEN PELVIS W (05/21/2024 8:39 [...] For Patients: ??As a result of the Cures Act, medical imaging exams and procedure [...] (Electronically Signed) Rosibel Walsh MD CT * URINE CULTURE (05/21/2024 8:04 AM CDT) Only the most recent of2 resultswithin the time period is included. CULTURE <10,000 CFU/mL multiple organisms 05/22/2024 1:59 PM CDT [facility] Urine URINE SPECIMEN / Unknown Non-Blood / Unknown 05/21/2024 8:04 AM CDT 05/21/2024 8:04 AM CDT Rosibel Walsh MD [facility] [address] [place] [address], * (ABNORMAL) UA W/ SEDIMENT EXAM REFLEXED PER CRITERIA (05/21/2024 8:04 AM CDT) Only the most recent of2 resultswithin the time period is included. COLOR Yellow Yellow Color 05/21/2024 8:[address] [facility] CLARITY Clear Clear Clarity 05/21/2024 8:[address] [facility] SPECIFIC GRAVITY,URINE 1.015 1.010, 1.015, 1.020, 1.025 05/21/2024 8:[address] [facility] PH,URINE 6.0 6.0, 7.0, 8.0, 5.5, 6.5, 7.5, 8.5 05/21/2024 8:[address] [facility] UROBILINOGEN, QUALITATIVE Normal Normal EU/dl 05/21/2024 8:[address] [facility] PROTEIN, URINE Trace(A) Negative mg/dL 05/21/2024 8:[address] [facility] GLUCOSE, URINE Negative Negative mg/dL 05/21/2024 8:[address] [facility] KETONES,URINE Negative Negative mg/dL 05/21/2024 8:[address] [facility] BILIRUBIN,URI NE Negative Negative 05/21/2024 8:[address] [facility] OCCULT BLOOD,URINE Negative Negative 05/21/2024 8:[address] [facility] NITRITE Negative Negative 05/21/2024 8:[address] [facility] LEUKOCYTE ESTERASE Negative Negative 05/21/2024 8:[address] [facility] Urine URINE SPECIMEN / Unknown Non-Blood / Unknown 05/21/2024 8:04 AM CDT 05/21/2024 8:04 AM CDT Rosibel Walsh MD URINE [facility] [address] [place] [address], * (ABNORMAL) CBC WITH AUTO DIFFERENTIAL (05/21/2024 8:00 AM CDT) Only the most recent of2 resultswithin the time period is included. WHITE BLOOD COUNT 7.7 4.5 - 11.0 thou/cu mm 05/21/2024 9:[address] [facility] RED BLOOD COUNT 3.55(L) 4.00 - 5.20 mil/cu mm 05/21/2024 9:[address] [facility] HEMOGLOBIN 10.5(L) 12.0 - 16.0 g/dL 05/21/2024 9:[address] [facility] HEMATOCRIT 32.2(L) 33.0 - 51.0 % 05/21/2024 9:[address] [facility] MCV 91 80 - 100 fL 05/21/2024 9:[address] [facility] MCH 29.6 26.0 - 34.0 pg 05/21/2024 9:[address] [facility] MCHC 32.6 32.0 - 36.0 g/dL 05/21/2024 9:[address] [facility] RDW 13.8 11.5 - 15.5 % 05/21/2024 9:[address] [facility] PLATELET COUNT 328 140 - 440 thou/cu mm 05/21/2024 9:[address] [facility] MPV 10.4 6.5 - 11.0 fL 05/21/2024 9:[address] [facility] Blood BLOOD SPECIMEN / Unknown Venipuncture / Unknown 05/21/2024 8:00 AM CDT 05/21/2024 8:03 AM CDT Rosibel Walsh MD HEMATOLOGY [facility] [address] [place] [address], * RED CELL MORPHOLOGY (05/21/2024 8:00 AM CDT) RBC COMMENT RBC morphology appears normal RBC morphology appears normal, RBC morphology within normal limits for newborns. 05/21/2024 9:[address] [facility] Blood BLOOD SPECIMEN / Unknown Venipuncture / Unknown 05/21/2024 8:00 AM CDT 05/21/2024 8:03 AM CDT Rosibel Walsh MD HEMATOLOGY Performing Organization Address City/[facility]/ZIP Co de Phone Number [facility] [address] [place] [address], * PLATELET ESTIMATE (05/21/2024 8:00 AM CDT) PLATELET ESTIMATE Adequate Adequate, No estimate 05/21/2024 9:[address] [facility] Blood BLOOD SPECIMEN / Unknown Venipuncture / Unknown 05/21/2024 8:00 AM CDT 05/21/2024 8:03 AM CDT Rosibel Walsh MD HEMATOLOGY Performing Organization Address [facility] Co de Phone Number [facility] [address] [place] [address], * MANUAL DIFFERENTIAL (05/21/2024 8:00 AM CDT) % NEUTROPHILS 59.0 % 05/21/2024 9:[address] [facility] % LYMPHOCYTES 32.0 % 05/21/2024 9:[address] [facility] % MONOCYTES 5.0 % 05/21/2024 9:[address] [facility] % EOSINOPHILS 3.0 % 05/21/2024 9:[address] [facility] % BASOPHILS 1.0 % 05/21/2024 9:[address] [facility] NEUTROPHILS ABSOLUTE 4.5 1.7 - 7.0 thou/cu mm 05/21/2024 9:[address] [facility] LYMPHOCYTES ABSOLUTE 2.5 0.9 - 2.9 thou/cu mm 05/21/2024 9:[address] [facility] MONOCYTES ABSOLUTE 0.4 <0.9 thou/cu mm 05/21/2024 9:[address] [facility] EOSINOPHILS ABSOLUTE 0.2 <0.5 thou/cu mm 05/21/2024 9:[address] [facility] BASOPHILS ABSOLUTE 0.1 <0.3 thou/cu mm 05/21/2024 9:[address] [facility] Blood BLOOD SPECIMEN / Unknown Venipuncture / Unknown 05/21/2024 8:00 AM CDT 05/21/2024 8:03 AM CDT Rosibel Walsh MD HEMATOLOGY Performing Organization Address City/[facility]/ZIP Co de Phone Number [facility] [address] [place] [address], * (ABNORMAL) LIPASE (05/21/2024 8:00 AM CDT) LIPASE 133.0(H) 13.0 - 60.0 IU/L 05/21/2024 2:25 PM CDT [facility] Blood BLOOD SPECIMEN / Unknown Venipuncture / Unknown 05/21/2024 8:00 AM CDT 05/21/2024 8:03 AM CDT Rosibel Walsh MD CHEMISTRY Performing Organization Address [facility] Co de Phone Number [facility] [address] [place] [address], * (ABNORMAL) COMP METABOLIC PANEL (05/21/2024 8:00 AM CDT) SODIUM 139 136 - 145 mmol/L 05/21/2024 2:25 PM CDT [facility] POTASSIUM 3.9 3.5 - 5.1 mmol/L 05/21/2024 2:25 PM CDT [facility] CHLORIDE 103 98 - 107 mmol/L 05/21/2024 2:25 PM CDT [facility] CO2,TOTAL 27 22 - 29 mmol/L 05/21/2024 2:25 PM CDT [facility] ANION GAP 9 5 - 18 05/21/2024 2:25 PM CDT [facility] GLUCOSE 106(H) 70 - 99 mg/dL 05/21/2024 2:25 PM CDT [facility] CALCIUM 9.0 8.8 - 10.2 mg/dL 05/21/2024 2:25 PM CDT [facility] BUN 9 8 - 23 mg/dL 05/21/2024 2:25 PM T [facility] CREATININE 1.22(H) 0.50 - 0.90 mg/dL 05/21/2024 2:25 PM T [facility] BUN/CREAT RATIO 7(L) 10 - 20 2:25 PM T [facility] TRA [facility] eGFR 46(L) >90 mL/min/1.7 3m2 05/21/2024 2:25 PM T [facility] Comment:As of 2022, eG FR is calculated by the CKD-EPI creatinine equation without race adjustment. ??eGFR can be influenced by muscle mass, exercise, and diet. ??The reported eGFR is an estimation only and is only applicable if the renal function is stable. ALBUMIN 3.5(L) 4.0 - 4.9 g/dL 05/21/2024 2:25 PM T [facility] PROTEIN,TOTAL 6.5 6.0 - 8.0 g/dL 05/21/2024 2:25 PM [facility] BILIRUBIN,TOTAL 0.3 0.0 - 1.2 mg/dL 05/21/2024 2:25 PM T [facility] ALK PHOSPHATASE 65 35 - 104 IU/L 05/21/2024 2:25 PM T [facility] ALT (SGPT) 19 10 - 35 IU/L 05/21/2024 2:25 PM T [facility] AST (SGOT) 31 10 - 35 IU/L 05/21/2024 2:25 PM [facility] Blood BLOOD SPECIMEN / Unknown Venipuncture / Unknown 05/21/2024 8:00 AM CDT 05/21/2024 8:03 AM CDT Rosibel Walsh MD CHEMISTRY [facility] [address] [place] [address], * (ABNORMAL) BASIC METABOLIC PANEL (05/19/2024 4:41 PM CDT) Only the most recent of2 resultswithin the time period is included. SODIUM 138 136 - 145 mmol/L 05/20/2024 2:33 PM CDT [facility] POTASSIUM 4.1 3.5 - 5.1 mmol/L 05/20/2024 2:33 PM CDT [facility] CHLORIDE 102 98 - 107 mmol/L 05/20/2024 2:33 PM CDT [facility] CO2,TOTAL 24 22 - 29 mmol/L 05/20/2024 2:33 PM CDT [facility] ANION GAP 12 5 - 18 05/20/2024 2:33 PM CDT [facility] GLUCOSE 104(H) 70 - 99 mg/dL 05/20/2024 2:33 PM CDT [facility] CALCIUM 9.1 8.8 - 10.2 mg/dL 05/20/2024 2:33 PM CDT [facility] BUN 9 8 - 23 mg/dL 05/20/2024 2:33 PM T [facility] CREATININE 1.00(H) 0.50 - 0.90 mg/dL 05/20/2024 2:33 PM CDT [facility] BUN/CREAT RATIO 9(L) 10 - 20 2:33 PM T [facility] eGFR 59(L) >90 mL/min/1.7 3m2 05/20/2024 2:33 PM CDT [facility] Comment:As of 2022, eG FR [...] 4:42 PM CDT Rosibel Walsh MD CHEMISTRY Performing Organization Address City/[facility]/ZIP Co de Phone Number [facility] [address] [place] [address], * SCAN-RADIOLOGY REPORT (05/16/2024 12:00 AM CDT) Anatomical Region Laterality Modality Other Scanner OTHER * (ABNORMAL) URINALYSIS MICROSCOPIC (05/15/2024 9:20 AM CDT) RBC 11-25(A) 0-2, None Seen /HPF 05/15/2024 9:[address] [facility] WBC 51-100(A) 0-2, 3-5, None Seen /HPF 05/15/2024 9:[address] [facility] BACTERIA Many(A) None Seen, Rare, Few Bacteria/ HPF 05/15/2024 9:[address] [facility] EPITHELIAL CELLS Few None Seen, Few Epi/HPF 05/15/2024 9:[address] [facility] Urine URINE SPECIMEN / Unknown Non-Blood / Unknown 05/15/2024 9:20 AM CDT 05/15/2024 9:26 AM CDT Sowmya Byrnes DO URINE Performing Organization Address City/[facility]/ZIP Co de Phone Number [facility] [address] [place] [address], [place] [phone] * (ABNORMAL) IRON PLUS IRON BINDING CAP (05/12/2024 12:37 PM CDT) IRON 49 37 - 145 ug/dL 05/13/2024 12:17 AM CDT [facility] UIBC (UNSATURATED) 165 112 - 347 ug/dL 05/13/2024 12:17 AM CDT [facility] IRON BINDING CAPACITY 214(L) 250 - 400 ug/dL 05/13/2024 12:17 AM CDT [facility] IRON,% SATURATION 23 14 - 50 % 05/13/2024 12:17 AM CDT [facility] Blood BLOOD SPECIMEN / Unknown Venipuncture / Unknown 05/12/2024 12:37 PM CDT 05/12/2024 12:39 PM CDT Riri Parikh NP CHEMISTRY [facility] [address] [place] [address], * RETICULOCYTES (05/12/2024 12:37 PM CDT) RETIC% 1.1 0.5 - 1.5 % 05/12/2024 10:23 PM CDT [facility] RETIC (ABSOLUTE) 0.04 0.03 - 0.08 mil/cu mm 05/12/2024 10:23 PM CDT [facility] Blood BLOOD SPECIMEN / Unknown Venipuncture / Unknown 05/12/2024 12:37 PM CDT 05/12/2024 12:39 PM CDT Narrative [facility] - 05/12/2024 10:23 PM CDT This procedure was originally ordered at [facility]. Riri Parikh NP HEMATOLOGY [facility] [address] [place] [address], * (ABNORMAL) FERRITIN (05/12/2024 12:37 PM CDT) FERRITIN 186.0(H) 15.0 - 150.0 ng/mL 05/13/2024 12:17 AM CDT [facility] Blood BLOOD SPECIMEN / Unknown Venipuncture / Unknown 05/12/2024 12:37 PM CDT 05/12/2024 12:39 PM CDT Riri Parikh NP CHEMISTRY [facility] [address] [place] [address], * (ABNORMAL) XR DXA BONE DENSITY 2 SITES AXIAL (10/02/2021 11:35 AM SMELTER OPERATOR) Anatomical Region Laterality Modality Spine, HIPS, HIPL, HIPR Other Impressions 10/03/2021 6:12 PM SMELTER OPERATOR Osteopenia. RECOMMENDATIONS: The National Osteoporosis Foundation recommends [...] Elizabeth Oviedo PA-C Narrative 10/03/2021 6:12 PM SMELTER OPERATOR For Patients: Results are automatically released to your [facility] ([employer]) account once available, in compliance with federal regulations. This means that you may see your results before your provider has had a chance to review them. Please allow 2-3 business days for your provider to comment on the results. XR DXA Bone Mineral Density (BMD) EXAM LOCATION: [address] [address] PATIENT NAME: Nathalie Walker DATE OF : [...] two scanners are made by the same gasoline tester. PROCEDURE: Dual-energy x-ray absorptiometry performed with routine [...] * ANTI HCV (07/08/2020 9:56 AM CDT) [facility] HEPATITIS C ANTIBODY Non-React victorino Non-React victorino 07/08/2020 5:37 PM CDT [facility] Comment:Antibodies to HCV no t detected; does not exclude the possibility of exposure to HCV. Blood BLOOD SPECIMEN / Unknown Venipuncture / Unknown 07/08/2020 9:56 AM CDT 07/08/2020 9:57 AM CDT oRsibel Walsh MD SEND OUT[facility] [address] [place] [address], from Last 3 Months or Most Recently Relevant to Health Maintenance Advance Directives Documents on File Type Date Recorded Patient [place] [employer] Expl anation Healthcare Directive 08/31/2013 3:16 PM [facility], 08/27/2013 * Full Code (Latest Code [...] Code Status Discussion: Not Discussed Care Teams Relay Record Clerk Relationship Specialty Start Date End Date Rosibel Walsh MD [address] [place] [address] PCP - General Family Practice 06/16/12 Ulisses Carney MD [address] [facility] [address] [place] [address] Rheumatology Rheumatology 11/29/17
--- OUTSIDE RECORDS SUMMARY | 2024-05-30 14:02 | XMS_ITS | Continuity of Care Document ---
Author Organization [facility] Address [address] [address] [place] [address] Phone Care Team Providers Care Beef Killer Name Role Phone Dannie Torres MD, Larry Thornton Unavailteri e Allergies, Adverse Reactions, Alerts Substance Reaction Status [...] Diagnoses Date Provider Providers Copied on Encounter [facility], [address] [address], [place], [id number], [place] tel:[phone] [facility] No Information 4 Dannie Juarez. [address] [facility], [facility] [address], [place], [id number] , [place]. tel:[phone] [facility], [address] [address], [place], [id number], [place] tel:[phone] [facility] GI Symptoms or Concerns (chief complaint) Other dysphagiaDisease of stomach and duodenum, unspecifiedDyspha sam, unspecifiedAnemia , unspecified 4 Shukri Padron. [address] [facility], [facility] [address], [place], [id number] , [place]. tel:[phone] Referring Provider: Rosibel Gill, [address] [place] [address], [place], [address]. tel:[phone] [facility], [address] [address], [place], [id number], [place] tel:[phone] [facility] No Information 4 Dannie Juarez. [address] [facility], [facility] [address], [place], [id number] , [place]. tel:[phone] Family History Family Member Type Diagnosis Age [...] Registry Payers Payer name Insurance type Covered republican ID Authoriza tion(s) No Information Social History Type Description Quantity Date Captured Comments Sex Female Smoking Status No Information Chief Complaint And Reason For Visit No Information Reason For Referral Reason For Referral No Information Plan Of Treatment Date Type Action Status Appointment Reside, Nathalie BOOKED History Of Present Illness Encounter Date Complaint History Of Prese nt Illness GI Symptoms or Concerns Functional Status Date Functional Assessmen t No Information Instructions Date Instruction Additional Infor mation No Information Assessments Type Assessment Date No Information Patient Care Teams Name Effective Dates (start - stop) Status Members No Information
[2024-05-30 14:21] LABS: Lactate* 0.9 mmol/L (0.5-1.9)
[2024-05-30 14:26] LABS: Basophils Absolute Auto 0.04 K/uL (0.00-0.30); Basophils Percent Auto 0.8 % (0.0-3.0); Eosinophils Absolute Auto 0.04 K/uL (0.00-0.50); Eosinophils Percent Auto 0.8 % (0.0-7.0); Hematocrit 37.4 % (33.0-51.0); Hemoglobin* 11.8 gm/dL (12.0-16.0); Lymphocytes Absolute Auto 1.14 K/uL (0.90-2.90); Lymphocytes Percent Auto 23.2 % (20-44); Mean Corpuscular HGB Conc 32 gm/dL (32-36); Mean Corpuscular Hemoglobin 29 pg (26-34); Mean Corpuscular Volume 92 fL (80-100); Monocytes Percent Auto 4.9 % (0.0-11.0); Neutrophils Absolute Auto 3.46 K/uL (1.7-7.0); Neutrophils Percent Auto 70.3 % (42.0-72.0); Platelet Count* 431 K/uL (140-440); RDW Coefficient of Variation % 13.1 % (11.5-15.5); Red Blood Count 4.07 m/uL (4.00-5.20); White Blood Count* 4.92 K/uL (4.50-11.00)
[2024-05-30 14:31] LABS: Slide Review Reflex No
[2024-05-30] MEDS: 0.9 % SODIUM CHLORIDE 1000 ml 1,000 ML IV (14:33)
[2024-05-30 14:37] LABS: Albumin* 4.2 g/dL (3.3-5.0); Chloride* 102 mmol/L (96-114); Potassium* 4.2 mmol/L (3.6-5.1); Sodium* 137 mmol/L (135-149)
[2024-05-30 14:39] LABS: Creatinine* 1.3 mg/dL (0.5-1.5); Est. Creatinine Clearance* 33.13; Estimated Glomerular Filt Rate 43 ml/min
[2024-05-30 14:40] LABS: Alanine Aminotransferase* 15 U/L (4-35); Alkaline Phosphatase* 58 U/L (40-150); Anion Gap 5 mEq/L (7-15); Aspartate Amino Transferase* 31 U/L (12-35); Blood Urea Nitrogen* 17 mg/dL (7-30); Calcium* 9.4 mg/dL (8.4-10.6); Carbon Dioxide* 30 mmol/L (20-32); Glucose* 111 mg/dL (60-115); Lipase* 207 U/L (23-300); Total Protein* 7.1 g/dL (6.0-8.3)
[2024-05-30 14:50] LABS: NT Pro B Type NatriureticPept* 259 pg/mL
[2024-05-30 14:52] LABS: Troponin I* < 0.01 ng/mL (0.01-0.04)
[2024-05-30 15:03] LABS: PCR FLU A Negative PCR FLU A (Negative); PCR FLU B Negative PCR FLU B (Negative); PCR RSV Negative PCR RSV (Negative); SARS PCR* Negative SARS-CoV-2 (Negative)
[2024-05-30] MEDS: ACETAMINOPHEN 500 MG TABLET 1000 MG PO (15:42)
== END 2024-05-30 17:27 | disposition home or self-care (01) ==
PROVIDERS: Emergency Provider Emergency Medicine; PCP Family Medicine
DX: R06.09 Other forms of dyspnea (principal); R10.13 Epigastric pain
CPT/HCPCS: 36415; 71275; 74177; 80053; 83605; 83690; 83880; 84484; 85025; 87631; 99284; A9270; J7030; Q9967

== ENCOUNTER 2025-01-19 07:59 | Outpatient (CLI) | payer MEDICARE, BC, SELFPAY | END 2025-01-19 08:00 | disposition home or self-care (01) | LOC: INJ CL 08:00 | PROVIDERS: PCP Family Medicine; Visit Provider Family Medicine | DX: M54.16 Radiculopathy, lumbar region (principal); M51.369 Other intervertebral disc degeneration, lumbar region without mention of lumbar back pain or lower extremity pain | CPT/HCPCS: 64483; J1100; Q9966 ==

== ENCOUNTER 2025-05-28 12:39 | Emergency (ER) | payer MEDICARE, BC, SELFPAY ==
[2025-05-28] VITALS (18 sets, daily range): BP systolic 121–156; BP diastolic 78–109; PULSE 91–100; RESP 10–23; TEMP 36.6; O2SAT 90–100; BMI 19.3
--- OUTSIDE RECORDS SUMMARY | 2025-05-28 12:42 | XMS_ITS | Clinical Summary ---
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 performed during the patient'sprocedure. RADIATION DOSE: AUTUMN 2.00 mGy FINDINGS: Fluoroscopic assistance provided during hip arthroplasty. Foradditional details, see the operative report. us Tra Schrader MD FLUOROSCOPY Final Result * HCHG TRAY PR10 (05/24/2025 9:06 AM CDT) Narrative Shane Sheridan MD - 05/24/2025 9:06 AM CDT Shane Sheridan MD 05/24/2025 9:08 AM Spinal Block Patient location during procedure: OR Start time: 05/24/2025 8:56 AM End time: 05/24/2025 8:59 AM Reason for block: primary anesthetic PreProcedure Checklist Completed: patient identified, risks and benefits discussed, timeout performed, hand hygiene performed, chloraprep used and completely dried prior to procedure, IV checked, site marked, surgical consent and hand hygiene performed Spinal Block Patient position: sitting Prep: chloraprep and sterile drape Patient monitoring: continuous pulse oximetry, ECG and blood pressure Supplemental O2: yes Approach: left paramedian Skin Infiltration: lidocaine 1% Location: L3-4 Needle Needle type: pencil-point Needle gauge: 24 G Needle length: 4 in Assessment Events: no complications. us Shane Sheridan MD ANESTHESIA PX NOTE ORDERA BLES Edited Result - Final * SCAN-CARDIAC STRIP (05/24/2025 12:00 AM CDT) Narrative 05/24/2025 12:00 AM CDT Ordered by an unspecified provider. us Other Clinical Staff OTHER Final Resul t * EKG 12 LEAD (05/19/2025 4:21 PM CDT) Rosibel Walsh MD EKG ORD Final Result * NC READING EKG - NO CHARGE, COMP ONLY (05/19/2025 4:21 PM CDT) Rosibel Walsh MD PB - PROVIDER READING S Final Result * (ABNORMAL) CBC AND DIFFERENTIAL (05/18/2025 4:52 PM CDT) WHITE BLOOD CELL COUNT 5.8 3.8 - 10.8 Thousand/u L [facility] RED BLOOD CELL COUNT 4.27 3.80 - 5.10 Million/uL [facility] HEMOGLOBIN 12.6 11.7 - 15.5 g/dL [facility] HEMATOCRIT 40.6 35.0 - 45.0 % [facility] MCV 95.1 80.0 - 100.0 fL [facility] MCH 29.5 27.0 - 33.0 pg [facility] MCHC 31.0(L) 32.0 - 36.0 g/dL [facility] Comment: For adults, a slight decrease in the calculated MCHC value (in the range of 30 to 32 g/dL) is most likely not clinically significant; however, it should be interpreted with caution in correlation with other red cell parameters and the patient's clinical condition. RDW 13.8 11.0 - 15.0 % [facility] PLATELET COUNT 277 140 - 400 Thousand/u L [facility] MPV 10.0 7.5 - 12.5 fL [facility] ABSOLUTE NEUTROPHILS 4,159 1,500 - 7,800 cells/uL [facility] ABSOLUTE LYMPHOCYTES 1,172 850 - 3,900 cells/uL [facility] ABSOLUTE MONOCYTES 354 200 - 950 cells/uL [facility] ABSOLUTE EOSINOPHILS 58 15 - 500 cells/uL [facility] ABSOLUTE BASOPHILS 58 0 - 200 cells/uL [facility] NEUTROPHILS 71.7 % [facility] LYMPHOCYTES 20.2 % [facility] MONOCYTES 6.1 % [facility] EOSINOPHILS 1.0 % [facility] BASOPHILS 1.0 % [facility] Blood BLOOD SPECIMEN / Unknown 05/18/2025 4:52 PM CDT 05/18/2025 4:53 PM CDT Rosibel Walsh MD HEMATOLOGY Final Result Performing Organization Address City/State/[facility] Co de Phone Number [facility] [address] [place] [address], [facility] [address] [place] [address] * (ABNORMAL) BASIC METABOLIC PANEL (05/18/2025 4:52 PM CDT) GLUCOSE 95 65 - 99 mg/dL [facility] Comment: Fasting reference interval UREA NITROGEN (BUN) 13 7 - 25 mg/dL [facility] CREATININE 1.20(H) 0.60 - 1.00 mg/dL [facility] EGFR 47(L) > OR = 60 mL/min/1.7 3m2 [facility] BUN/CREATININE RATIO 11 6 - 22 (calc) [facility] SODIUM 142 135 - 146 mmol/L [facility] POTASSIUM 4.0 3.5 - 5.3 mmol/L [facility] CHLORIDE 102 98 - 110 mmol/L [facility] CARBON DIOXIDE 32 20 - 32 mmol/L [facility] ELECTROLYTE BALANCE 8 7 - 17 mmol/L (calc) [facility] CALCIUM 9.4 8.6 - 10.4 mg/dL [facility] Blood BLOOD SPECIMEN / Unknown 05/18/2025 4:52 PM CDT 05/18/2025 4:53 PM CDT Rosibel Walsh MD CHEMISTRY Final Result [facility] [address] [place] [address], [facility] [address] [place] [address] * XR KNEE WB 2 VIEWS BILATERAL AND 1 VIEW RIGHT (04/30/2025 9:41 AM CDT) Anatomical Region Laterality Modality KNEES, KNEE R Digital Radiogra phy Impressions 04/30/2025 9:58 AM CDT Stable status post a right total knee arthroplasty dated 09/29/2019 All services were personally performed by Tra Schrader MD. Documentation performed by Jannie Vidal MS, ATC, OTC based on my observation of services performed and provider statements to me. Tra Schrader MD 04/30/2025 Narrative 04/30/2025 9:58 AM CDT This radiology exam was performed at [facility] Radiology Department and interpreted by Tra Schrader MD. HISTORY Status post a right total knee arthroplasty dated 09/29/2019 TECHNICAL Weightbearing views were obtained consisting of AP, lateral, sunrise views of the right knee(s). FINDINGS: Excellent alignment of prosthesis with no evidence of loosening. No evidence of fracture or intraarticular loose bodies. Tra Schrader MD GENERAL IMAGING Final Result * XR RIBS LEFT AND PA CHEST MINIMUM 3 VIEWS (04/23/2025 2:03 PM CDT) Anatomical Region Laterality Modality RIBS, RIBS L, CHEST Computed Rad iography 04/23/2025 3:58 PM CDT Impressions 04/23/2025 3:58 PM CDT IMPRESSION:Negative chest and left ribs. Dictated by Junaid Ayala MD @ 04/23/2025 3:58:25 PM (Electronically Signed) Narrative 04/23/2025 3:58 PM CDT For Patients: As a result of the Century Cures Act, medical imaging exams and procedure reports are released immediately into your electronic medical record. You may view this report before your referring provider. If you have questions, please contact your health care provider. INDICATION: Rib pain on left side COMPARISON: 12/31/2024 TECHNIQUE: PA chest and left ribs. FINDINGS: The lungs are clear. There is no evidence of pulmonary contusion, pneumothorax or pleural effusion. The heart and pulmonary vessels are of normal size. Oblique detail views of the ribs demonstrate no evidence of fracture or intrinsic bone lesion. There is no evidence of pleural hematoma. Procedure Note Junaid Ayala MD - 04/23/2025 For Patients: As a result of the Cures Act, medical imagingexams and procedure reports are released immediately into your electronicmedical record. You may view this report before your referring provider.If you have questions, please contact your health care provider. INDICATION: Rib pain on left side COMPARISON: 12/31/2024 TECHNIQUE: PA chest and left ribs. FINDINGS: The lungs are clear. There is no evidence of pulmonary contusion,pneumothorax or pleural effusion. The heart and pulmonary vessels are ofnormal size. Oblique detail views of the ribs demonstrate no evidence offracture or intrinsic bone lesion. There is no evidence of pleuralhematoma. IMPRESSION: IMPRESSION:Negative chest and left ribs. Dictated by Junaid Ayala MD @ 04/23/2025 3:58:25 PM (Electronically Signed) us Rosibel Walsh MD GENERAL IMAGING Final Result * XR KNEE 3 VIEWS RIGHT (04/02/2025 11:54 AM CDT) Anatomical Region Laterality Modality KNEES, KNEE R Computed Radiogr aphy 04/04/2025 5:26 PM CDT Narrative 04/04/2025 5:26 PM CDT For Patients: As a result of the Cures Act, medical imaging exams and procedure reports are released immediately into your electronic medical record. You may view this report before your referring provider. If you have questions, please contact your health care provider. Indication: Acute right knee pain. Technique: Three views of the right knee. Comparison: Right knee radiograph 12/31/2023 Findings: The cemented 3 component right knee arthroplasty is unchanged in position and alignment when compared to the previous exam. No instrumentation failure is identified. No fracture is identified. The soft tissues are unremarkable. Impression: No acute abnormality. Dictated by Darci Zimmerman MD @ 04/04/2025 5:26:37 PM (Electronically Signed) Procedure Note Darci Zimmerman MD - 04/04/2025 For Patients: As a result of the s Act, medical imagingexams and procedure reports are released immediately into your electronicmedical record. You may view this report before your referring provider.If you have questions, please contact your health care provider. Indication: Acute right knee pain. Technique: Three views of the right knee. Comparison: Right knee radiograph 12/31/2023 Findings: The cemented 3 component right knee arthroplasty is unchanged in positionand alignment when compared to the previous exam. No instrumentationfailure is identified. No fracture is identified. The soft tissues areunremarkable. Impression: No acute abnormality. Dictated by Darci Zimmerman MD @ 04/04/2025 5:26:37 PM (Electronically Signed) Rosibel Walsh MD GENERAL IMAGING Final Result * XR HIP 1 VIEW W PELVIS RIGHT (04/02/2025 11:53 AM CDT) Anatomical Region Laterality Modality HIPS, HIPR, Pelvis Computed Radi ography 04/04/2025 5:25 PM CDT Narrative 04/04/2025 5:25 PM CDT For Patients: As a result of the s Act, medical imaging exams and procedure reports are released immediately into your electronic medical record. You may view this report before your referring provider. If you have questions, please contact your health care provider. Indication: Right hip arthritis. Technique: AP pelvis and frog-leg lateral view of the right hip. Comparison: Right hip radiograph 11/13/2019 Findings: Bilateral hip severe osteoarthritis. No acute fracture or osteonecrosis. Degenerative changes within the lower lumbar spine and sacroiliac joints. Bony ankylosis of the pubic symphysis. Unremarkable soft tissues. Impression: Bilateral hip osteoarthritis. Dictated by Darci Zimmerman MD @ 04/04/2025 5:25:25 PM (Electronically Signed) Procedure Note Darci Zimmerman MD - 04/04/2025 For Patients: As a result of the Cures Act, medical imagingexams and procedure reports are released immediately into your electronicmedical record. You may view this report before your referring provider.If you have questions, please contact your health care provider. Indication: Right hip arthritis. Technique: AP pelvis and frog-leg lateral view of the right hip. Comparison: Right hip radiograph 11/13/2019 Findings: Bilateral hip severe osteoarthritis. No acute fracture or osteonecrosis.Degenerative changes within the lower lumbar spine and sacroiliac joints.Bony ankylosis of the pubic symphysis. Unremarkable soft tissues. Impression: Bilateral hip osteoarthritis. Dictated by Darci Zimmerman MD @ 04/04/2025 5:25:25 PM (Electronically Signed) us Rosibel Walsh MD GENERAL IMAGING Final Result * (ABNORMAL) XR DXA BONE DENSITY 2 SITES AXIAL (10/19/2024 1:23 PM [employer]ESS [employer] SALES REPRESENTATIVE) Anatomical Region Laterality Modality Spine, HIPS, HIPL, HIPR Other Impressions 10/20/2024 2:05 PM H[employer]ESS [employer] SALES REPRESENTATIVE Osteopenia. RECOMMENDATIONS: The National Osteoporosis Foundation recommends [...] exercise. Repeat scan recommended in 3-5 years. Antonia Holly PA-C [facility] 10/20/2024 Narrative 10/20/2024 2:05 PM [employer] SALES REPRESENTATIVE For Patients: Results are automatically released to your [facility] account once available, in compliance with federal regulations. This means that you may see your results before your provider has had a chance to review them. Please allow 2-3 business days for your provider to comment on the results. XR DXA Bone Mineral Density (BMD) EXAM LOCATION: [facility] [address] [facility] [id number] PATIENT NAME: Nathalie Walker DATE OF : 1945 EXAM DATE: 10/19/2024 REQUESTING PROVIDER: Rosibel Walsh MD GENDER AT : female HEIGHT: 5' 4.25 (10/16/2024) WEIGHT: 117 lb 11.2 oz (10/16/2024) MENOPAUSAL STATUS: Postmenopausal RACE/ETHNICITY: White RISK FACTORS: Family History of Osteoporosis, Height Loss (2 inches or more), History of Fragility Fracture (at a major site), Weight < 127 lbs., and White Race CURRENT MEDICATION FOR BONE LOSS: NONE INDICATION: Menopause COMPARISON DATE(S): 2020 DXA scans are compared to prior studies for a patient only when the two (or more) studies were performed on the same scanner. It is not possible to compare data generated on one scanner to data from another because there are not standards in DXA equipment. This applies even if the two scanners are made by the same surveillance investigator. PROCEDURE: Dual-energy x-ray absorptiometry performed with routine technique. Reporting is completed in the form of a T-score. The T-score represents the standard deviation from peak bone mass based on young healthy adult. A Z-score is used for diagnosis in premenopausal women, and for men under the age of 50. FINDINGS: RESULT LUMBAR SPINE (L1-L3) L4 BMD: 1.025 g/cm2 T-Score: - 1.3 Z-Score: + 0.9 Change from prior in 2012: Decrease 1.2% RESULTS FEMUR Left femoral neck BMD: 0.910 g/cm2 T-Score: - 0.9 Z-Score: + 1.3 Change from prior in 2020: Increase 1.6%. Right femoral neck BMD: 0.894 g/cm2 T-Score: - 1.0 Z-Score: + 1.2 Change from prior in 2020: Decrease 6.3%. Left hip BMD: 0.763 g/cm2 T-Score: - 1.9 Z-Score: + 0.2 Change from prior in 2020: Decrease 13.4%. Right hip BMD: 0.787 g/cm2 T-Score: - 1.8 Z-Score: + 0.4 Change from prior in 2020: Decrease 7.3%. WHO criteria: Normal: T-score at or above -1 SD Osteopenia: T-score between -1.1 and -2.4 SD Osteoporosis: T-score at or below -2.5 SD FRAX RISK CALCULATION (USED FOR OSTEOPENIA ONLY): 10-year probability of major osteoporotic fracture: 8.7%. 10-year probability of hip fracture: 1.5%. Rosibel Walsh MD DEXA Final Result * ANTI HCV (07/08/2020 9:56 AM CDT) Pathologist [facility] HEPATITIS C ANTIBODY Non-React victorino Non-React victorino 07/08/2020 5:37 PM CDT [facility] Comment:Antibodies to HCV no t detected; does not exclude the possibility of exposure to HCV. Blood BLOOD SPECIMEN / Unknown Venipuncture / Unknown 07/08/2020 9:56 AM CDT 07/08/2020 9:57 AM CDT Rosibel Walsh MD SEND OUTS Final Result [facility] 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 Healthcare Directive 08/31/2013 3:16 PM [facility], 08/27/2013 * Full Code (Latest Code Status on File) Date Activated Date Inactivated Comments 05/24/2025 12:34 PM 05/25/2025 1:55 PM Question Answer Comments Code Status Discussion: Unable to Assess Preferences, Provider to review later * Full Code Date Activated Date Inactivated Comments 05/24/2025 6:38 AM 05/24/2025 12:34 PM Question Answer Comments Code Status Discussion: Not Discussed * Full Code Date Activated Date Inactivated Comments 01/01/2025 1:29 AM 01/01/2025 4:30 PM Question Answer Comments Code Status Discussion: Reviewed Preferences * Full Code Date Activated Date Inactivated Comments 01/28/2023 7:30 AM 01/28/2023 12:12 PM Question Answer Comments Code Status Discussion: Discussed * Full Code Date Activated Date Inactivated Comments 09/29/2019 9:13 AM 10/01/2019 1:35 PM Care Teams Spot Sprayer Relationship Specialty Start Date End Date Rosibel Walsh MD [address] [place] [address] PCP - General Family Practice 06/16/12 Ulisses Carney MD [address] [facility] [address] [place] [address] Rheumatology Rheumatology 11/29/17
--- NOTE | 2025-05-28 13:23 | ED.GENADULT ---
HPI - General Adult General Chief complaint: Weakness Stated complaint: Weakness, confusion 4 days post op Time Seen by Provider: 05/28/25 13:17 History of Present Illness HPI narrative: 79-year-old female presenting to the ER today with her daughter. She has a past medical history of hypertension, chronic kidney disease, migraines arthritis, hyperlipidemia, spinal stenosis, peripheral neuropathy. She has had previous right knee replacement and is 4 days status post right hip replacement done at [facility]. Per [facility] medical record Had a right hip replacement surgery by Dr. Schrader done at [facility] on 05/24. Than the hemoglobin was 9.2 on 05/25 CBC showed WBC 5.8, hemoglobin 12.6, platelet 277 on 05/18 The BMP showed sodium 142 of the toes and 0 or 2, bicarb 32, BUN 13, creatinine 1.2 on 05/18 Related Data Home Medications ?Medication ?Instructions ?Recorded ?Confirmed atenolol 25 mg tablet 25 mg PO DAILY 12/20/22 05/17/24 atorvastatin 20 mg tablet 20 mg PO HS 12/20/22 05/17/24 cholecalciferol (vitamin D3) 25 25 mcg PO DAILY 12/20/22 05/17/24 mcg (1,000 unit) capsule duloxetine 20 mg capsule,delayed 20 mg PO BID 12/20/22 05/17/24 release esomeprazole magnesium 40 mg 40 mg PO DAILY 12/20/22 05/17/24 capsule,delayed release famotidine 20 mg tablet 20 mg PO HS 12/20/22 05/17/24 ferrous gluconate 324 mg (38 mg 324 mg PO 3XW 12/20/22 05/17/24 iron) tablet gabapentin 300 mg capsule 300 - 600 mg PO HS 12/20/22 05/17/24 nortriptyline 10 mg capsule 10 mg PO HS 12/20/22 05/17/24 oxycodone-acetaminophen 5 mg-325 1 tab PO TID PRN 12/20/22 05/17/24 mg tablet sumatriptan succinate 50 mg tablet 50 mg PO DIRECTED PRN 12/20/22 05/17/24 vitamin E 268 mg (400 unit) capsule 536 mg PO DAILY 12/20/22 05/17/24 albuterol sulfate 90 mcg/actuation 1 - 2 puff inhalation Q4H PRN 10/04/23 05/17/24 aerosol inhaler wheezing guaifenesin 600 mg tablet, 600 mg PO BID PRN 10/04/23 05/17/24 extended release 12 hr (Mucinex) trospium 20 mg tablet 20 mg PO BID 10/04/23 05/17/24 cephalexin 500 mg capsule 500 mg PO BID 05/16/24 05/16/24 clotrimazole-betamethasone 1 1 applic topical BID PRN 05/17/24 05/17/24 %-0.05 % topical cream spironolactone 25 mg tablet 25 mg PO DAILY 05/17/24 05/17/24 oxycodone 5 mg tablet PO 05/28/25 Allergies Allergy/AdvReac Type Severity Reaction Status Date / Time vancomycin Allergy Severe Angioedema Verified 05/28/25 15:21 amoxicillin (From Augmentin) Allergy Mild Rash Verified 05/28/25 15:21 clavulanic acid (From Allergy Mild Rash Verified 05/28/25 15:21 Augmentin) PFSH [facility] Medical History (Updated 05/28/25 @ 17:30 by Kevin Balderas MD) Chronic kidney disease, stage 3a ?N18.31 - Chronic kidney disease, stage 3a (ICD-10) Osteoarthritis ?M19.90 - Unspecified osteoarthritis, unspecified site (ICD-10) Cat bite of ankle ?S91.059A - Open bite, unspecified ankle, initial encounter (ICD-10) ?W55.01XA - Bitten by cat, initial encounter (ICD-10) Cellulitis of right ankle ?L03.115 - Cellulitis of right lower limb (ICD-10) Adverse drug reaction ?T50.905A - Adverse effect of unspecified drugs, medicaments and biological substances, initial encounter (ICD-10) FH: total knee replacement ?Z82.69 - Family history of other diseases of the musculoskeletal system and connective tissue (ICD-10) Peripheral motor neuropathy ?G62.89 - Other specified polyneuropathies (ICD-10) Sensorineural hearing loss ?H90.5 - Unspecified sensorineural hearing loss (ICD-10) Migraines ?G43.909 - Migraine, unspecified, not intractable, without status migrainosus (ICD-10) Dry mouth ?R68.2 - Dry mouth, unspecified (ICD-10) Urge incontinence ?N39.41 - Urge incontinence (ICD-10) Dermatochalasia ?H02.839 - Dermatochalasis of unspecified eye, unspecified eyelid (ICD-10) Pterygium eye ?H11.009 - Unspecified pterygium of unspecified eye (ICD-10) Adjustment disorder ?F43.20 - Adjustment disorder, unspecified (ICD-10) HTN (hypertension) ?I10 - Essential (primary) hypertension (ICD-10) Pain medication agreement ?Z02.89 - Encounter for other administrative examinations (ICD-10) Lumbar facet arthropathy ?M47.816 - Spondylosis without myelopathy or radiculopathy, lumbar region (ICD-10) Hip osteoarthritis ?M16.9 - Osteoarthritis of hip, unspecified (ICD-10) Injury of long thoracic nerve ?S24.8XXA - Injury of other specified nerves of thorax, initial encounter (ICD-10) Hyperlipidemia, unspecified ?E78.5 - Hyperlipidemia, unspecified (ICD-10) Neck pain ?M54.2 - Cervicalgia (ICD-10) Spinal stenosis, lumbar region without neurogenic claudication ?M48.061 - Spinal stenosis, lumbar region without neurogenic claudication (ICD-10) Surgical History (Updated 05/16/24 @ 20:14 by Tae Pimentel MD) History of total right knee replacement ?Z96.651 - Presence of right artificial knee joint (ICD-10) S/P YAG capsulotomy ?Z98.890 - Other specified postprocedural states (ICD-10) Hx of tonsillectomy ?Z90.89 - Acquired absence of other organs (ICD-10) Cataract extraction status ?Z98.49 - Cataract extraction status, unspecified eye (ICD-10) History of carpal tunnel release ?Z98.890 - Other specified postprocedural states (ICD-10) H/O blepharoplasty ?Z98.890 - Other specified postprocedural states (ICD-10) Family History (Updated 05/16/24 @ 20:15 by Tae Pimentel MD) Mother Arthritis Gout Social History Narrative: She lives in a home in [place] with her 2 daughters and her son in law. She reports this is going well for her. Her daughter Esther is healthcare power of emissions inspector. Code status previously was full. on 05/16/2024 patient changes her CODE status to DNR DNI. She does not smoke. She does not drink alcohol. What is your current living situation?: I presently have a place to live Problems where you live: no known problems Problems where you live details: NA In the past 12 months, utilities in danger of being shut off: no In past 12 months, lack of transportation kept you from medical appts, meetings, work, or getting things needed for daily living: no In the past 12 mos, have been you worried that your food would run out before you had money to buy more?: never true In the past 12 mos, the food you bought just didn't last and you didn't have money to buy more?: never true Highest level of school completed/degree received: 12th grade, no diploma Smoking Status: Never smoker Do you use any of these nicotine containing products: None Second hand tobacco smoke exposure: No How often do you have a drink containing alcohol: monthly or less Alcohol type: wine Alcohol type details: wine, 1/2 glass. rare alcohol intake How often do you have six or more drinks on one occasion: Never AUDIT-C Alcohol total score: 1 Non-prescribed substance use: denies use Caffeine: Yes (coke and tea) How often does anyone, including family, friends and others, physically hurt you: never How often does anyone, including family, friends and others, insult or talk down to you: never How often does anyone, including family, friends and others, threaten you with harm: never How often does anyone, including family, friends and others, scream or curse at you: never service: No Exam Const: Vital Signs, click to edit/add: Vital Signs - 24 hr 05/28/25 12:59 Temperature 97.8 F Pulse Rate [Right Pulse Oximeter] 100 Blood Pressure [Le ft Upper Arm] 121/79 Pulse Oximetry 94 Oxygen Delivery Me thod Room Air Course Vital Signs Vital signs: Initial Vital Signs Temperature 97.8 F 05/28/25 12:59 Temperature Source Oral 05/28/25 12:59 Pulse Rate 100 05/28/25 12:59 Blood Pressure 121/79 05/28/25 12:59 Blood Pressure Mean 93 05/28/25 12:59 Blood Pressure Position Sitting 05/28/25 12:59 Pulse Oximetry 94 05/28/25 12:59 Oxygen Delivery Method Room Air 05/28/25 12:59 Vital Signs Temperature 97.8 F 05/28/25 12:59 Pulse Rate 100 05/28/25 12:59 Blood Pressure 121/79 05/28/25 12:59 Pulse Oximetry 94 05/28/25 12:59 Oxygen Delivery Method Room Air 05/28/25 12:59 Temperature 97.8 F 05/28/25 12:59 Pulse Rate 100 05/28/25 12:59 Blood Pressure 121/79 05/28/25 12:59 Pulse Oximetry 94 05/28/25 12:59 Oxygen Delivery Method Room Air 05/28/25 12:59 Medications Administered Medications: Discontinued Medications Generic Name Dose Route Start Last Admin Trade Name Georgiana PRN Reason Stop Dose Admin Acetaminophen 1,000 mg 05/28/25 17:01 05/28/25 17:25 Acetaminophen 500 Mg Tablet PO 05/28/25 17:02 1,000 mg ONCE ONE Administration Sodium Chloride 1,000 mls @ 1,000 mls/hr 05/28/25 13:45 05/28/25 14:37 0.9 % Sodium Chloride 1000 Ml IV 05/28/25 14:44 1,000 mls/hr .Q1H RISSA Administration Sodium Chloride 1,000 mls @ 1,000 mls/hr 05/28/25 15:30 05/28/25 17:24 0.9 % Sodium Chloride 1000 Ml IV 05/28/25 16:29 Not Given .Q1H RISSA Medical Decision Making [facility] Narrative Medical decision making narrative: 79-year-old female who is 4 days status post right hip replacement done at [facility], in [place]. She was discharged home on postop day 1, on Saturday. She started to do poorly 2 days ago on Saturday and got a little bit worse yesterday. She has been having trouble with poor pain control but also has been confused and forgetful and not remembering to take her meds. By her daughter's pill count, the patient has only taken 3 of her prescribed oxycodone tablets since she got home. She presents to the ER today because her daughter feels like she was more confused yesterday and she is having pain in her right hip. Also daughter is concerned because her right hip is bruised and swollen. 1. Ortho. CT scan of the patient's right hip does show postoperative changes and air in the soft tissue which would be consistent with postop status 4 days ago. Fortunately there is no large hematoma or fluid collection or any radiographic sign of abscess. It does not look like there is any displacement of the hardware. On exam the patient does have bruising around the right hip but really not diffuse bruising of the leg to suggest DVT. She is distally neurovascularly intact. No evidence for compartment syndrome. Hemoglobin is 9.3 which is stable from her postop hemoglobin at [facility]. No signs of hematoma or ongoing bleeding. 2. Neuro. Patient has been confused and sounds like her level of mental clarity has been fluctuating. Suspect this is probably a delirium. Differential would include medication side effect from her anesthesia or her pain meds. We did do workup to look for other causes of confusion. Mental status is very clear and lucid here in the ER this afternoon but it sounds like she was pretty confused yesterday evening and overnight at home. Labs shows normal sodium and electrolytes. Normal kidney function. Blood sugar is normal. Anion gap is low. Patient is producing appropriate amounts of urine after receiving a L saline. Kidney function normal. TSH normal. Urinalysis normal. White count normal. No fever. No evidence for sepsis at this point. We suspect that her confusion last night was probably related to taking oxycodone. I am able to get additional history from the patient and her daughter. They report that she did take 2 oxycodone on Saturday, 1 on Saturday, and then daughter reports that there were 3 oxycodone as the were unaccounted for (she probably had taken yesterday ). Right now we suspect that her overnight confusion was probably related to the oxycodone she had taken. Daughter will try to monitor her oxycodone carefully to make sure she does not take more than prescribed. The patient does not recall taking any oxycodone yesterday. Right now neither the patient, nor her daughter, nor myself suspect any pattern of abuse or diversion. I think she probably just took more oxycodone because she was having pain. 3. GI Lipae normalLFTs are mildly abnormal with a bilirubin of 2.9 and an AST of 92. Based on comprehensive metabolic panel from [facility] is medical record on 12/31 24, bilirubin have been normal at 1.2 and AST had been normal at 24. ALT was 10 and alk-phos was 59. Patient reports that she has had lab similar to this in the past . She has not been having any right upper quadrant pain. Therefore will hold off on abdomen CT your gallbladder ultrasound unless she develops pain or worsening symptoms. Here in the ER the patient was having some pain and spasms in her right hip. She received Tylenol but did not want other pain meds. She is able to transfer in and out of bed and get on and off the commode. She and her daughter are comfortable with her level of function and would like her to discharge home. Her daughter will help monitor her oxycodone used as we suspect that was probably causing her confusion. Lab Data Labs: Lab Results 05/28/25 05/28/25 Range/Units 14:00 15:40 WBC 7.54 (4.50-11.00) K/uL RBC 3.18 L (4.00-5.20) m/uL Hgb 9.3 L (12.0-16.0) gm/dL Hct 29.0 L (33.0-51.0) % MCV 91 (80-100) fL MCH 29 (26-34) pg MCHC 32 (32-36) gm/dL RDW Coeff of [place] 13.8 (11.5-15.5) % Plt Count 229 (140-440) K/uL Neut % (Auto) 80.2 H (42.0-72.0) % Lymph % (Auto) 10.2 L (20-44) % [place] % (Auto) 8.0 (0.0-11.0) % Eos % (Auto) 1.1 (0.0-7.0) % Baso % (Auto) 0.4 (0.0-3.0) % Neut # (Auto) 6.00 (1.7-7.0) K/uL Lymph # (Auto) 0.80 L (0.90-2.90) K/uL [place] # (Auto) 0.60 (0.00-0.90) K/UL Eos # (Auto) 0.08 (0.00-0.50) K/uL Baso # (Auto) 0.03 (0.00-0.30) K/uL Abs Immat Gran (auto) 0.01 (0.00-0.30) K/uL Imm/Tot Granulo (auto) 0.1 % Sodium 135 (135-149) mmol/L Potassium 3.8 (3.6-5.1) mmol/L Chloride 99 (96-114) mmol/L Carbon Dioxide 32 (20-32) mmol/L Anion Gap 4 L (7-15) mEq/L BUN 20 (7-30) mg/dL Creatinine 1.0 (0.5-1.5) mg/dL Estimated Creat Clear 39.13 Estimated GFR 58 ml/min Glucose 108 (60-115) mg/dL Lactate 0.9 (0.5-1.9) mmol/L Calcium 9.1 (8.4-10.6) mg/dL Total Bilirubin 2.9 H (0.1-1.5) mg/dL AST 92 H (12-35) U/L ALT 22 (4-35) U/L Alkaline Phosphatase 78 (40-150) U/L Troponin I < 0.01 (0.01-0.04) ng/mL Total Protein 6.3 (6.0-8.3) g/dL Albumin 3.7 (3.3-5.0) g/dL Lipase 27 (23-300) U/L TSH 1.770 (0.270-4.200) uIU/mL Urine Color Yellow (Yellow) Urine Appearance Clear (Clear) Urine pH 7.5 (5.0-8.5) Ur Specific [place] 1.015 (1.000-1.030) Urine Protein Negative (Negative) Urine Glucose (UA) Negative (Negative) Urine Ketones Trace A (Negative) Urine Blood Negative (Negative) Urine Nitrite Negative (Negative) Urine Bilirubin Negative (Negative) Urine Urobilinogen 0.2 (0.2-1.0) Ur Leukocyte Esterase Negative (Negative) Urine RBC 0-2 (0-2) Urine WBC 0-2 (0-5) Ur Squamous Epith Cells None (None-Few) Urine Bacteria None (None) Imaging Data CT R hip: Attestation: I have reviewed the pertinent imaging results. Radiologist's impression: IMPRESSION: Postop air commensurate with stated history of recent surgery 4 days ago. No hematoma. No other focal organized fluid in the soft tissues and no joint effusion appreciated. No fracture. CT scan - head: Attestation: I have reviewed the pertinent imaging results. Radiologist's impression: IMPRESSION: 1. No acute intracranial abnormality. 2. Mild generalized volume loss, changes of chronic small vessel ischemic disease and remote lacunar infarct left basal ganglia. ECG Data Attestation: I personally reviewed and interpreted this ECG as follows: Interpretation: Sinus rhythm with fusion complexes Rate 97 MO interval 160 Low voltage QRS. Normal QRS axis. Nonspecific T-wave changes. No ST segment elevation or depression QTC 459 Discharge Plan Discharge Clinical Impression: Acute pain of right hip, Confusion, Abnormal LFTs Patient Disposition: Home, Self-Care Condition: Stable Instructions: Acute Delirium (ED), Hip Pain (ED) Additional Instructions: As we discussed, rate now we suspect confusion is probably related to side effects from the oxycodone that you have been taking for your hip pain. It is okay to continue using Tylenol or oxycodone if needed. However please have your daughter monitor your oxycodone use to make sure you do not accidentally overdosing. If you have any worsening confusion or any other new symptoms such as fever, abdominal pain, chest pain, trouble breathing, redness around your hip surgery, please return to the ER right away. Even if you are getting better, please recheck with your orthopedist or your regular doctor on Saturday. Prescriptions: No Action albuterol sulfate 90 mcg/actuation HFA aerosol inhaler 1 - 2 puff INHALATION Q4H PRN (Reason: wheezing) guaifenesin [Mucinex] 600 mg tablet extended release 12hr 600 mg PO BID PRN trospium 20 mg tablet 20 mg PO BID cephalexin 500 mg capsule 500 mg PO BID clotrimazole-betamethasone 1-0.05 % cream 1 applic topical BID PRN spironolactone 25 mg tablet 25 mg PO DAILY oxycodone 5 mg tablet PO atenolol 25 mg tablet 25 mg PO DAILY atorvastatin 20 mg tablet 20 mg PO HS duloxetine 20 mg capsule,delayed release(DR/EC) 20 mg PO BID esomeprazole magnesium 40 mg capsule,delayed release(DR/EC) 40 mg PO DAILY famotidine 20 mg tablet 20 mg PO HS ferrous gluconate 324 mg (38 mg iron) tablet 324 mg PO 3XW Patient Comments: 3 times weekly gabapentin 300 mg capsule 300 - 600 mg PO HS Patient Comments: nortriptyline 10 mg capsule 10 mg PO HS oxycodone-acetaminophen 5-325 mg tablet 1 tab PO TID PRN Patient Comments: Take 1 Tablet by mouth 3 times daily if needed for Pain. do not exceed 4000mg of acetaminophen in 24 hours. sumatriptan succinate 50 mg tablet 50 mg PO DIRECTED PRN Patient Comments: take 1 tablet by mouth at onset of headache. may repeat in 2 hours if needed. max dose: 200mg per 24 hours. cholecalciferol (vitamin D3) 25 mcg (1,000 unit) capsule 25 mcg PO DAILY vitamin E 268 mg (400 unit) capsule 536 mg PO DAILY Follow Up/Referrals: Rosibel Walsh MD [Primary Care Provider, Family Practice] Stand Alone Forms: [employer] Info Instructions
--- NOTE | 2025-05-28 13:41 | CRLHL7_ITS ---
For Patients: As a result of the Century Cures Act, medical imaging exams and procedure reports are released immediately into your electronic medical record. You may view this report before your referring provider. If you have questions, please contact your health care provider. INDICATION: PAIN AND SWELLING WITH CONFUSION 4 DAYS AFTER TOTAL HIP. TECHNIQUE : 57 mL Isovue-[address] imaging midpelvis to proximal femurs. FINDINGS: Right hip prosthesis. Scattered stippled foci of air in the soft tissues superficial to and within the tensor fossa linda. Air tract under the iliotibial band out of the field of view inferiorly. Some air in the inferior medullary space of the femur below the stem of the femoral prosthesis. Some air in the posterior proximal right adductor muscles. No organized extra-articular fluid. No definite joint effusion. A few foci of air extend above the field of view superficial to right gluteus medius. No fracture of the pelvis or right femur. Severe osteoarthritic left hip. Degenerative ankylosis symphysis pubis. IMPRESSION: Postop air commensurate with stated history of recent surgery 4 days ago. No hematoma. No other focal organized fluid in the soft tissues and no joint effusion appreciated. No fracture. Please note that all CT scans at this facility use dose modulation, iterative reconstruction, and/or weight-based dosing when appropriate to reduce radiation dose to as low as reasonably achievable. Dictated by Tanner Alvarez MD @ 05/28/2025 4:00:54 PM (Electronically Signed)
--- NOTE | 2025-05-28 13:41 | CRLHL7_ITS ---
For Patients: As a result of the Cures Act, medical imaging exams and procedure reports are released immediately into your electronic medical record. You may view this report before your referring provider. If you have questions, please contact your health care provider. INDICATION: Confusion. Postop day 4 right total hip. TECHNIQUE: CT head without contrast. COMPARISON: CT head without contrast 04/22/2017. FINDINGS: Mild generalized volume loss and ill-defined low-attenuation in the periventricular and subcortical white matter. Subcentimeter remote lacunar infarct left basal ganglia. Intracranial atherosclerosis. No mass effect or midline shift. No hydrocephalus. No CT evidence of acute hemorrhage or infarction. No abnormal extra-axial fluid collection. Bone windows show no acute calvarial fracture. Paranasal sinuses and orbits as imaged are unremarkable. IMPRESSION: 1. No acute intracranial abnormality. 2. Mild generalized volume loss, changes of chronic small vessel ischemic disease and remote lacunar infarct left basal ganglia. Dictated by Miller Garcia MD @ 05/28/2025 3:58:34 PM Please note that all CT scans at this facility use dose modulation, iterative reconstruction, and/or weight-based dosing when appropriate to reduce radiation dose to as low as reasonably achievable. Dictated by: Miller Garcia MD @ 05/28/2025 15:58:47 (Electronically Signed)
[2025-05-28 14:11] LABS: Hematocrit 29.0 % (33.0-51.0); Hemoglobin* 9.3 gm/dL (12.0-16.0); Immature Granulocytes Abs Auto 0.01 K/uL (0.00-0.30); Immature Granulocytes Pct Auto 0.1 %; Lactate* 0.9 mmol/L (0.5-1.9); Mean Corpuscular HGB Conc 32 gm/dL (32-36); Mean Corpuscular Hemoglobin 29 pg (26-34); Mean Corpuscular Volume 91 fL (80-100); RDW Coefficient of Variation % 13.8 % (11.5-15.5); Red Blood Count 3.18 m/uL (4.00-5.20); White Blood Count* 7.54 K/uL (4.50-11.00)
[2025-05-28 14:12] LABS: Lymphocytes Absolute Auto 0.80 K/uL (0.90-2.90); Slide Review Reflex No
[2025-05-28 14:27] LABS: Albumin* 3.7 g/dL (3.3-5.0); Chloride* 99 mmol/L (96-114)
[2025-05-28 14:28] LABS: Potassium* 3.8 mmol/L (3.6-5.1); Sodium* 135 mmol/L (135-149)
[2025-05-28 14:30] LABS: Alanine Aminotransferase* 22 U/L (4-35); Alkaline Phosphatase* 78 U/L (40-150); Anion Gap 4 mEq/L (7-15); Aspartate Amino Transferase* 92 U/L (12-35); Bilirubin Total* 2.9 mg/dL (0.1-1.5); Blood Urea Nitrogen* 20 mg/dL (7-30); Carbon Dioxide* 32 mmol/L (20-32); Creatinine* 1.0 mg/dL (0.5-1.5); Est. Creatinine Clearance* 39.13; Estimated Glomerular Filt Rate 58 ml/min; Total Protein* 6.3 g/dL (6.0-8.3)
[2025-05-28 14:31] LABS: Calcium* 9.1 mg/dL (8.4-10.6); Glucose* 108 mg/dL (60-115)
[2025-05-28 15:14] LABS: TSH With Reflex to FT4* 1.770 uIU/mL (0.270-4.200)
[2025-05-28 16:15] LABS: Appearance Urine Clear (Clear)
[2025-05-28] MEDS: ACETAMINOPHEN 500 MG TABLET 1000 MG PO (17:25)
--- NOTE | 2025-06-14 08:50 | ED.GENADULT ---
HPI - General Adult General Date Seen: 05/28/25 Chief complaint: Weakness Stated complaint: Weakness, confusion 4 days post op Time Seen by Provider: 05/28/25 13:17 History of Present Illness HPI narrative: Addendum 06/14/2025. I saw this patient in the ER on 05/28. I inadvertently omitted my physical exam from my ER note. Please see that note for full details of the history and medical decision making. Exam Constitutional: Appears well-developed and well-nourished. Alert. Conversant but somewhat disjointed historian. Apparently is much less confused now than she was last night.. Non toxic. HENT: Head: Atraumatic. Nose: Nose normal. Mouth/Throat: Oral mucosa is clear and moist. no trismus. Pharynx normal. Eyes: Conjunctivae normal. EOM normal. Pupils equal, round, and reactive to light. No scleral icterus. Neck: Normal range of motion. Neck supple. No tracheal deviation present. Cardiovascular: Normal rate, regular rhythm. No gallop. No friction rub. No murmur heard. Symmetric radial artery pulses Pulmonary/Chest: Effort normal. No stridor. No respiratory distress. No wheezes. No rales. No rhonchi . No tenderness. Abdominal: Soft. Bowel sounds normal. No distension. No mass. No tenderness. No right upper quadrant tenderness. No rebound. No guarding. Musculoskeletal: RUE: Normal range of motion. No tenderness. No deformity LUE: Normal range of motion. No tenderness. No deformity RLE: Ecchymosis around right hip. She is 4 days status post hip replacement. There is no diffuse ecchymosis or edema in the right leg. Normal range of motion in knee and ankle and toes. Range of motion the right hip limited somewhat by her postop pain.. No deformity LLE: Normal range of motion. No edema. No tenderness. No deformity Neurological: Alert and oriented to person, place, and time, but is not a completely detailed historian especially for details of how she took her meds yesterday and what happened last night. Daughter provides a lot of her history.. Normal strength. CN II-VII intact. No sensory deficit. GCS eye subscore is 4. GCS verbal subscore is 5. GCS motor subscore is 6. Normal coordination Skin: Skin is warm and dry. No rash noted. No jaundice. No pallor. Normal capillary refill. Psychiatric: Normal affect. Related Data Home Medications ?Medication ?Instructions ?Recorded ?Confirmed atenolol 25 mg tablet 25 mg PO DAILY 12/20/22 05/17/24 atorvastatin 20 mg tablet 20 mg PO HS 12/20/22 05/17/24 cholecalciferol (vitamin D3) 25 25 mcg PO DAILY 12/20/22 05/17/24 mcg (1,000 unit) capsule duloxetine 20 mg capsule,delayed 20 mg PO BID 12/20/22 05/17/24 release esomeprazole magnesium 40 mg 40 mg PO DAILY 12/20/22 05/17/24 capsule,delayed release famotidine 20 mg tablet 20 mg PO HS 12/20/22 05/17/24 ferrous gluconate 324 mg (38 mg 324 mg PO 3XW 12/20/22 05/17/24 iron) tablet gabapentin 300 mg capsule 300 - 600 mg PO HS 12/20/22 05/17/24 nortriptyline 10 mg capsule 10 mg PO HS 12/20/22 05/17/24 oxycodone-acetaminophen 5 mg-325 1 tab PO TID PRN 12/20/22 05/17/24 mg tablet sumatriptan succinate 50 mg tablet 50 mg PO DIRECTED PRN 12/20/22 05/17/24 vitamin E 268 mg (400 unit) capsule 536 mg PO DAILY 12/20/22 05/17/24 albuterol sulfate 90 mcg/actuation 1 - 2 puff inhalation Q4H PRN 10/04/23 05/17/24 aerosol inhaler wheezing guaifenesin 600 mg tablet, 600 mg PO BID PRN 10/04/23 05/17/24 extended release 12 hr (Mucinex) trospium 20 mg tablet 20 mg PO BID 10/04/23 05/17/24 cephalexin 500 mg capsule 500 mg PO BID 05/16/24 05/16/24 clotrimazole-betamethasone 1 1 applic topical BID PRN 05/17/24 05/17/24 %-0.05 % topical cream spironolactone 25 mg tablet 25 mg PO DAILY 05/17/24 05/17/24 oxycodone 5 mg tablet PO 05/28/25 Allergies Allergy/AdvReac Type Severity Reaction Status Date / Time vancomycin Allergy Severe Angioedema Verified 05/28/25 15:21 amoxicillin (From Augmentin) Allergy Mild Rash Verified 05/28/25 15:21 clavulanic acid (From Allergy Mild Rash Verified 05/28/25 15:21 Augmentin) [facility] Medical History (Updated 06/12/25 @ 00:02 by Background Daemon) Chronic kidney disease, stage 3a ?N18.31 - Chronic kidney disease, stage 3a (ICD-10) Osteoarthritis ?M19.90 - Unspecified osteoarthritis, unspecified site (ICD-10) Cat bite of ankle ?S91.059A - Open bite, unspecified ankle, initial encounter (ICD-10) ?W55.01XA - Bitten by cat, initial encounter (ICD-10) Cellulitis of right ankle ?L03.115 - Cellulitis of right lower limb (ICD-10) Adverse drug reaction ?T50.905A - Adverse effect of unspecified drugs, medicaments and biological substances, initial encounter (ICD-10) FH: total knee replacement ?Z82.69 - Family history of other diseases of the musculoskeletal system and connective tissue (ICD-10) Peripheral motor neuropathy ?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 - Other specified polyneuropathies (ICD-10) Sensorineural hearing loss ?H90.5 - Unspecified sensorineural hearing loss (ICD-10) Migraines ?G43.909 - Migraine, unspecified, not intractable, without status migrainosus (ICD-10) Dry mouth ?R68.2 - Dry mouth, unspecified (ICD-10) Urge incontinence ?N39.41 - Urge incontinence (ICD-10) Dermatochalasia ?H02.839 - Dermatochalasis of unspecified eye, unspecified eyelid (ICD-10) Pterygium eye ?H11.009 - Unspecified pterygium of unspecified eye (ICD-10) Adjustment disorder ?F43.20 - Adjustment disorder, unspecified (ICD-10) HTN (hypertension) ?I10 - Essential (primary) hypertension (ICD-10) Pain medication agreement ?Z02.89 - Encounter for other administrative examinations (ICD-10) Lumbar facet arthropathy ?M47.816 - Spondylosis without myelopathy or radiculopathy, lumbar region (ICD-10) Hip osteoarthritis ?M16.9 - Osteoarthritis of hip, unspecified (ICD-10) Injury of long thoracic nerve ?S24.8XXA - Injury of other specified nerves of thorax, initial encounter (ICD-10) Hyperlipidemia, unspecified ?E78.5 - Hyperlipidemia, unspecified (ICD-10) Neck pain ?M54.2 - Cervicalgia (ICD-10) Spinal stenosis, lumbar region without neurogenic claudication ?M48.061 - Spinal stenosis, lumbar region without neurogenic claudication (ICD-10) Surgical History (Updated 05/16/24 @ 20:14 by Tae Pimentel MD) History of total right knee replacement ?Z96.651 - Presence of right artificial knee joint (ICD-10) S/P YAG capsulotomy ?Z98.890 - Other specified postprocedural states (ICD-10) Hx of tonsillectomy ?Z90.89 - Acquired absence of other organs (ICD-10) Cataract extraction status ?Z98.49 - Cataract extraction status, unspecified eye (ICD-10) History of carpal tunnel release ?Z98.890 - Other specified postprocedural states (ICD-10) H/O blepharoplasty ?Z98.890 - Other specified postprocedural states (ICD-10) Family History (Updated 05/16/24 @ 20:15 by Tae Pimentel MD) Mother Arthritis Gout Social History Narrative: She lives in a home in [place] with her 2 daughters and her son in law. She reports this is going well for her. Her daughter Esther is healthcare power of woodyard crane operator. Code status previously was full. on 05/16/2024 patient changes her CODE status to DNR DNI. She does not smoke. She does not drink alcohol. What is your current living situation?: I presently have a place to live Problems where you live: no known problems Problems where you live details: NA In the past 12 months, utilities in danger of being shut off: no In past 12 months, lack of transportation kept you from medical appts, meetings, work, or getting things needed for daily living: no In the past 12 mos, have been you worried that your food would run out before you had money to buy more?: never true In the past 12 mos, the food you bought just didn't last and you didn't have money to buy more?: never true Highest level of school completed/degree received: 12th grade, no diploma Smoking Status: Never smoker Do you use any of these nicotine containing products: None Second hand tobacco smoke exposure: No How often do you have a drink containing alcohol: monthly or less Alcohol type: wine Alcohol type details: wine, 1/2 glass. rare alcohol intake How often do you have six or more drinks on one occasion: Never AUDIT-C Alcohol total score: 1 Non-prescribed substance use: denies use Caffeine: Yes (coke and tea) How often does anyone, including family, friends and others, physically hurt you: never How often does anyone, including family, friends and others, insult or talk down to you: never How often does anyone, including family, friends and others, threaten you with harm: never How often does anyone, including family, friends and others, scream or curse at you: never service: No Course Vital Signs Vital signs: Initial Vital Signs Temperature 97.8 F 05/28/25 12:59 Temperature Source Oral 05/28/25 12:59 Pulse Rate 100 05/28/25 12:59 Blood Pressure 121/79 05/28/25 12:59 Blood Pressure Mean 93 05/28/25 12:59 Blood Pressure Position Sitting 05/28/25 12:59 Pulse Oximetry 94 05/28/25 12:59 Oxygen Delivery Method Room Air 05/28/25 12:59 Vital Signs Temperature 97.8 F 05/28/25 12:59 Pulse Rate 100 05/28/25 12:59 Blood Pressure 121/79 05/28/25 12:59 Pulse Oximetry 94 05/28/25 12:59 Oxygen Delivery Method Room Air 05/28/25 12:59 Temperature 97.8 F 05/28/25 12:59 Pulse Rate 97 05/28/25 16:45 Respiratory Rate 15 05/28/25 16:45 Blood Pressure 132/109 H 05/28/25 17:02 Pulse Oximetry 94 05/28/25 16:45 Oxygen Delivery Method Room Air 05/28/25 17:02 Medications Administered Medications: Discontinued Medications Generic Name Dose Route Start Last Admin Trade Name Freq PRN Reason Stop Dose Admin Acetaminophen 1,000 mg 05/28/25 17:01 05/28/25 17:25 Acetaminophen 500 Mg Tablet PO 05/28/25 17:02 1,000 mg ONCE ONE Administration Sodium Chloride 1,000 mls @ 1,000 mls/hr 05/28/25 13:45 05/28/25 14:37 0.9 % Sodium Chloride 1000 Ml IV 05/28/25 14:44 1,000 mls/hr .Q1H RISSA Administration Sodium Chloride 1,000 mls @ 1,000 mls/hr 05/28/25 15:30 05/28/25 17:24 0.9 % Sodium Chloride 1000 Ml IV 05/28/25 16:29 Not Given .Q1H [facility] Medical Decision Making Lab Data Labs: Lab Results 05/28/25 05/28/25 Range/Units 14:00 15:40 WBC 7.54 (4.50-11.00) K/uL RBC 3.18 L (4.00-5.20) m/uL Hgb 9.3 L (12.0-16.0) gm/dL Hct 29.0 L (33.0-51.0) % MCV 91 (80-100) fL MCH 29 (26-34) pg MCHC 32 (32-36) gm/dL RDW Coeff of [place] 13.8 (11.5-15.5) % Plt Count 229 (140-440) K/uL Neut % (Auto) 80.2 H (42.0-72.0) % Lymph % (Auto) 10.2 L (20-44) % [place] % (Auto) 8.0 (0.0-11.0) % Eos % (Auto) 1.1 (0.0-7.0) % Baso % (Auto) 0.4 (0.0-3.0) % Neut # (Auto) 6.00 (1.7-7.0) K/uL Lymph # (Auto) 0.80 L (0.90-2.90) K/uL [place] # (Auto) 0.60 (0.00-0.90) K/UL Eos # (Auto) 0.08 (0.00-0.50) K/uL Baso # (Auto) 0.03 (0.00-0.30) K/uL Abs Immat Gran (auto) 0.01 (0.00-0.30) K/uL Imm/Tot Granulo (auto) 0.1 % Sodium 135 (135-149) mmol/L Potassium 3.8 (3.6-5.1) mmol/L Chloride 99 (96-114) mmol/L Carbon Dioxide 32 (20-32) mmol/L Anion Gap 4 L (7-15) mEq/L BUN 20 (7-30) mg/dL Creatinine 1.0 (0.5-1.5) mg/dL Estimated Creat Clear 39.13 Estimated GFR 58 ml/min Glucose 108 (60-115) mg/dL Lactate 0.9 (0.5-1.9) mmol/L Calcium 9.1 (8.4-10.6) mg/dL Total Bilirubin 2.9 H (0.1-1.5) mg/dL AST 92 H (12-35) U/L ALT 22 (4-35) U/L Alkaline Phosphatase 78 (40-150) U/L Troponin I < 0.01 (0.01-0.04) ng/mL Total Protein 6.3 (6.0-8.3) g/dL Albumin 3.7 (3.3-5.0) g/dL Lipase 27 (23-300) U/L TSH 1.770 (0.270-4.200) uIU/mL Urine Color Yellow (Yellow) Urine Appearance Clear (Clear) Urine pH 7.5 (5.0-8.5) Ur Specific [place] 1.015 (1.000-1.030) Urine Protein Negative (Negative) Urine Glucose (UA) Negative (Negative) Urine Ketones Trace A (Negative) Urine Blood Negative (Negative) Urine Nitrite Negative (Negative) Urine Bilirubin Negative (Negative) Urine Urobilinogen 0.2 (0.2-1.0) Ur Leukocyte Esterase Negative (Negative) Urine RBC 0-2 (0-2) Urine WBC 0-2 (0-5) Ur Squamous Epith Cells None (None-Few) Urine Bacteria None (None) Discharge Plan Discharge Clinical Impression: Acute pain of right hip, Confusion, Abnormal LFTs Patient Disposition: Home, Self-Care Condition: Stable Instructions: Acute Delirium (ED), Hip Pain (ED) Additional Instructions: As we discussed, rate now we suspect confusion is probably related to side effects from the oxycodone that you have been taking for your hip pain. It is okay to continue using Tylenol or oxycodone if needed. However please have your daughter monitor your oxycodone use to make sure you do not accidentally overdosing. If you have any worsening confusion or any other new symptoms such as fever, abdominal pain, chest pain, trouble breathing, redness around your hip surgery, please return to the ER right away. Even if you are getting better, please recheck with your orthopedist or your regular doctor on Saturday. Prescriptions: No Action albuterol sulfate 90 mcg/actuation HFA aerosol inhaler 1 - 2 puff INHALATION Q4H PRN (Reason: wheezing) guaifenesin [Mucinex] 600 mg tablet extended release 12hr 600 mg PO BID PRN trospium 20 mg tablet 20 mg PO BID cephalexin 500 mg capsule 500 mg PO BID clotrimazole-betamethasone 1-0.05 % cream 1 applic topical BID PRN spironolactone 25 mg tablet 25 mg PO DAILY oxycodone 5 mg tablet PO atenolol 25 mg tablet 25 mg PO DAILY atorvastatin 20 mg tablet 20 mg PO HS duloxetine 20 mg capsule,delayed release(DR/EC) 20 mg PO BID esomeprazole magnesium 40 mg capsule,delayed release(DR/EC) 40 mg PO DAILY famotidine 20 mg tablet 20 mg PO HS ferrous gluconate 324 mg (38 mg iron) tablet 324 mg PO 3XW Patient Comments: 3 times weekly gabapentin 300 mg capsule 300 - 600 mg PO HS Patient Comments: nortriptyline 10 mg capsule 10 mg PO HS oxycodone-acetaminophen 5-325 mg tablet 1 tab PO TID PRN Patient Comments: Take 1 Tablet by mouth 3 times daily if needed for Pain. do not exceed 4000mg of acetaminophen in 24 hours. sumatriptan succinate 50 mg tablet 50 mg PO DIRECTED PRN Patient Comments: take 1 tablet by mouth at onset of headache. may repeat in 2 hours if needed. max dose: 200mg per 24 hours. cholecalciferol (vitamin D3) 25 mcg (1,000 unit) capsule 25 mcg PO DAILY vitamin E 268 mg (400 unit) capsule 536 mg PO DAILY Follow Up/Referrals: Rosibel Walsh MD [Primary Care Provider, Family Practice] Stand Alone Forms: [facility] Instructions
== END 2025-05-28 17:50 | disposition home or self-care (01) ==
PROVIDERS: Emergency Provider Emergency Medicine; PCP Family Medicine
DX: M25.551 Pain in right hip (principal); R41.0 Disorientation, unspecified; R94.5 Abnormal results of liver function studies
CPT/HCPCS: 36415; 70450; 73701; 80053; 81001; 83605; 83690; 84443; 84484; 85025; 87040; 93005; 99283; 99285; A9270; J7030; Q9967

== ENCOUNTER 2025-10-05 07:25 | Outpatient (CLI) | payer MEDICARE, BC, SELFPAY | END 2025-10-05 07:26 | disposition home or self-care (01) | LOC: INJ CL 07:26 | PROVIDERS: PCP Family Medicine; Visit Provider Family Medicine | DX: M54.16 Radiculopathy, lumbar region (principal); M48.062 Spinal stenosis, lumbar region with neurogenic claudication | CPT/HCPCS: 62323; Q9966 ==